=== PATIENT | female | born 1950 | race Caucasian/White ===

== ENCOUNTER 2016-09-09 19:52 | Emergency (ER) | payer OTHER, MEDICARE ==
[~2016-09-09] VITALS: Ht 154.9 cm; Wt 58.2 kg
[~2016-09-09 19:52] MED LIST: ACTUDL10 PO; ESTR1CRE PV; LEVO112T2 PO; OMEP40CA PO; PERP4TAB6 PO; ROSU5TAB PO; RXCS PO; ZFRODT4HP PO; ZTA10 PO
[2016-09-09 19:56] VITALS: TEMP 36.7; Ht 154.9 cm; Wt 58.2 kg
[2016-09-09] MEDS ORDERED: SODIUM CHLORIDE 0.9% 1000ML 1,000 ML IV STA (20:24)
[2016-09-09] MEDS ORDERED: ALUMINUM/MAGNESIUM SUSP 30 ML UDC PO STA (20:24)
[2016-09-09] MEDS ORDERED: PANTOprazole INJ 40 MG in SYRINGE 0 ML IV ONE (20:30)
--- NOTE | 2016-09-09 20:39 | EMERGENCY ROOM VISIT NOTE ---
History Report prepared by Ivan: Michelle Pascual Under the Supervision of: Constantino SextonO. First contact with patient: 20:07 Chief Complaint: ABDOMINAL PAIN Stated Complaint: SEVERE STOMACH PAINS History of Present Illness The patient is a 66 year old female who presents to the Emergency Room with complaints of persistent epigastric abdominal pain that began three hours ago. She currently rates her discomfort as a 10/10 in severity. The patient states that in February of 2014, she had Fundoplication done for her reflux. She states that since then she has had intermittent epigastric pain. The patient states that she has had ultrasounds, endoscopies to explore her pain. She states that she has had this pain in the past, but states that it has never lasted this long or this severe. The patient states that she ate prior to her pain. She states that her pain wraps around to her back. The patient states that the pain suddenly came on. She states that her bowel movements are always abnormal, but denies any melena or hematochezia. The patient reports that she has noticed some slight heart burn. The patient reports a history of celiac disease noting that she is on a gluten free diet. She denies any history of hypertension, kidney disease, or heart disease. The patient reports a history of a cholecystectomy. Source of History: patient Onset: three hours ago Position: abdomen (epigastric) Symptom Intensity: 10/10 Timing: other (persistent) Associated Symptoms: + back pain, No melena, No hematochezia Review of Systems See HPI for pertinent positives & negatives. A total of 10 systems reviewed and were otherwise negative. Past Medical & Surgical Medical Problems: (1) GERD (gastroesophageal reflux disease) Surgical Problems: (1) History of [place] fundoplication Family History Cancer Diabetes mellitus FHx: gallbladder disease Heart disease Social History Smoking Status: Current Every Day Smoker Alcohol Use: none Marital Status: Housing Status: lives with significant other Current/Historical Medications Scheduled Amitriptyline HCl (Amitriptyline HCl), 50 MG PO DAILY Calcium Carbonate-Vitamin D W/ (Caltrate 600 Plus), 1 TAB PO BID Dicyclomine Hcl (Bentyl), 20 MG PO Q8 Ezetimibe (Zetia), 10 MG PO QPM Levothyroxine Sodium (Synthroid), 112 MCG PO 4XWK Levothyroxine Sodium (Levothyroxine Sodium), 150 MG PO MWF Lorazepam (Ativan), 0.5 MG PO PRN Multivitamins/Minerals (Mvi With Minerals), 1 TAB PO DAILY Perphenazine (Trilafon), 4 MG PO QPM Pravastatin Sodium (Pravastatin Sodium), 10 MG PO Q2D [Premarin Cream], 1 DOSE UD Scheduled PRN Zolpidem Tartrate (Ambien), 5 MG PO HS PRN for Sleep Allergies Uncoded Allergies: LATEX (Allergy, Unknown, RASH, 03/25/14) MORPHINE (Allergy, Unknown, HIVES, 03/25/14) Physical Exam Vital Signs Date Time Temp Pulse Resp B/P (MAP) Pulse Ox O2 Delivery O2 Flow Rate FiO2 09/10/16 01:16 67 18 152/79 97 Room Air 09/10/16 01:03 58 09/09/16 23:17 69 16 161/79 97 Room Air 09/09/16 21:43 69 15 147/81 100 Room Air 09/09/16 20:39 79 20 129/75 97 Room Air 09/09/16 20:26 78 09/09/16 19:56 36.7 92 20 147/65 98 Room Air Physical Exam GENERAL: alert, well appearing, well nourished, no distress, non-toxic EYE EXAM: normal conjunctiva, PERRL and EOM's grossly intact OROPHARYNX: no exudate, no erythema, lips, buccal mucosa, and tongue normal and mucous membranes are moist NECK: supple, no nuchal rigidity, no adenopathy, non-tender LUNGS: Clear to auscultation. Normal chest wall mechanics HEART: no murmurs, S1 normal and S2 normal ABDOMEN: Epigastric tenderness to palpation, abdomen soft, normo-active bowel sounds, no masses, no organomegaly, no pulsatile masses, no rebound or guarding. BACK: Back is symmetrical on inspection and there is no deformity, no midline tenderness, no CVA tenderness. SKIN: no rashes and no bruising UPPER EXTREMITIES: upper extremities are grossly normal. LOWER EXTREMITIES: No pitting edema. NEURO EXAM: Normal sensorium, cranial nerves II-XII grossly intact, normal speech, no gross weakness of arms, no gross weakness of legs. Medical Decision & Procedures ER Provider Diagnostic Interpretation: Radiology results have been interpreted by the radiologist and reviewed by me. PA CHEST WITH ABDOMINAL SERIES CLINICAL HISTORY: Epigastric abdominal pain. FINDINGS: A PA chest radiograph is obtained. No prior studies are available for comparison at the time of dictation. The cardiomediastinal silhouette is unremarkable. Nonspecific interstitial thickening is identified. The lungs and pleural spaces are clear. No pneumothorax is seen. The skeletal structures are osteopenic. The bony thorax is grossly intact. A surgical anchor is seen in the right humeral head. Supine and erect abdominal radiographs are correlated with fluoroscopic upper GI series dated 08/19/2015. There is a nonobstructed abdominal bowel gas pattern. There is moderate colonic fecal retention. No evidence of intraperitoneal free air is seen. There are no abnormal abdominal calcifications. Phleboliths are seen in the pelvis. Mild lumbosacral spondylosis is observed. The lumbosacral spine and bony pelvis appear intact. IMPRESSION: 1. No active disease in the chest. 2. Nonobstructed abdominal bowel gas pattern. 3. Moderate constipation. Electronically signed by: Naman Dobbins M.D. 09/09/2016 9:03 PM Dictated Date/Time: 09/09/2016 9:01 PM Laboratory Results 09/09/16 20:10 Red Blood Count 4.28, Mean Corpuscular Volume 90.9, Mean Corpuscular Hemoglobin 30.1, Mean Corpuscular Hemoglobin Concent 33.2, Mean Platelet Volume 8.9, Neutrophils (%) (Auto) 62.9, Lymphocytes (%) (Auto) 25.6, Monocytes (%) (Auto) 9.1, Eosinophils (%) (Auto) 1.9, Basophils (%) (Auto) 0.3, Neutrophils # (Auto) 3.65, Lymphocytes # (Auto) 1.49, Monocytes # (Auto) 0.53, Eosinophils # (Auto) 0.11, Basophils # (Auto) 0.02 09/09/16 20:10 Test 09/09/16 20:10 09/09/16 20:51 09/09/16 23:15 White Blood Count 5.81 K/uL (4.8-10.8) Red Blood Count 4.28 M/uL (4.2-5.4) Hemoglobin 12.9 g/dL (12.0-16.0) Hematocrit 38.9 % (37-47) Mean Corpuscular Volume 90.9 fL (80-100) Mean Corpuscular Hemoglobin 30.1 pg (25-34) Mean Corpuscular Hemoglobin Concent 33.2 g/dl (32-36) Platelet Count 320 K/uL (130-400) Mean Platelet Volume 8.9 fL (7.4-10.4) Neutrophils (%) (Auto) 62.9 % Lymphocytes (%) (Auto) 25.6 % Monocytes (%) (Auto) 9.1 % Eosinophils (%) (Auto) 1.9 % Basophils (%) (Auto) 0.3 % Neutrophils # (Auto) 3.65 K/uL (1.4-6.5) Lymphocytes # (Auto) 1.49 K/uL (1.2-3.4) Monocytes # (Auto) 0.53 K/uL (0.11-0.59) Eosinophils # (Auto) 0.11 K/uL (0-0.5) Basophils # (Auto) 0.02 K/uL (0-0.2) RDW Standard Deviation 44.7 fL (36.4-46.3) RDW Coefficient of Variation 13.5 % (11.5-14.5) Immature Granulocyte % (Auto) 0.2 % Immature Granulocyte # (Auto) 0.01 K/uL (0.00-0.02) Anion Gap 6.0 mmol/L (3-11) Est Creatinine Clear Calc Drug Dose 48.1 ml/min Estimated GFR () 73.7 Estimated GFR (Non- 63.6 BUN/Creatinine Ratio 14.9 (10-20) Calcium Level 9.3 mg/dl (8.5-10.1) Total Bilirubin 0.2 mg/dl (0.2-1) Aspartate Amino Transf (AST/SGOT) 17 U/L (15-37) Alanine Aminotransferase (ALT/SGPT) 34 U/L (12-78) Alkaline Phosphatase 67 U/L (45-117) Total Protein 7.6 gm/dl (6.4-8.2) Albumin 3.9 gm/dl (3.4-5.0) Globulin 3.7 gm/dl (2.5-4.0) Albumin/Globulin Ratio 1.1 (0.9-2) Lipase 63 U/L (73-393) Lactic Acid Level 1.5 mmol/L (0.4-2.0) Troponin I < 0.015 ng/ml (0-0.045) Laboratory results per my review. Medications Administered Medications (Trade) Dose Ordered Sig/Tasneem Route Start Time Stop Time Status Last Admin Dose Admin Pantoprazole Sodium 40 mg/ Syringe 10 ml @ 5 mls/min NOW ONCE IV 09/09/16 20:30 09/09/16 20:31 DC 09/09/16 21:08 5 MLS/MIN Al Hydroxide/Mg Hydroxide (Maalox Susp) 30 ml NOW STAT PO 09/09/16 20:24 09/09/16 20:27 DC 09/09/16 20:37 30 ML Sodium Chloride 1,000 ml @ 999 mls/hr Q1H1M STAT IV 09/09/16 20:24 09/09/16 21:24 DC 09/09/16 20:37 999 MLS/HR Fentanyl Citrate (Fentanyl Inj) 50 mcg NOW STAT IV 09/09/16 21:25 09/09/16 21:27 DC 09/09/16 21:41 50 MCG Dicyclomine HCl (Bentyl Tab) 20 mg NOW STAT PO 09/09/16 22:04 09/09/16 22:05 DC 09/09/16 22:36 20 MG Dicyclomine HCl (Bentyl Cap) 20 mg STK-MED ONCE .ROUTE 09/09/16 22:37 09/09/16 22:38 DC 09/09/16 22:40 20 MG ECG Indication: abdominal pain Rate (beats per minute): 73 Rhythm: sinus rhythm Findings: no acute ischemic change, other (normal axis, normal intervals) ED Course 2018: The patient was evaluated in room C1B. A complete history and physical exam was performed. 2023: Ordered Sodium Chloride 1000 ml @ 999 mls/hr IV, Maalox Susp 30 ml PO. 2029: Ordered Pantoprazole Sodium 40 mg/Syringe 10 ml @ 5 mls/min IV. 2124: Ordered Fentanyl Inj 50 mcg IV. 2156: I reevaluated the patient and she is feeling better. I updated her at this time on her test results. 2203: Ordered Bentyl Tab 20 mg PO. 2236: Ordered Bentyl Cap 20 mg .route. 5: I reevaluated the patient and she is resting comfortably. I discussed the exam findings with her and I discussed the treatment plan. She verbalized complete understanding and agreement. She is ready to go home. Medical Decision Differential diagnoses includes but is not limited to gastritis, peptic ulcer disease, GERD, gallbladder disease, pancreatitis, small bowel obstruction, acute coronary syndrome, pericarditis, ischemic bowel, irritable bowel disease, irritable bowel syndrome, appendicitis, diverticulitis, malignancy, hernia, urinary tract infection, torsion, /ectopic (if female), perforation, trauma, infectious. Blood pressure screening: Patient was found to have a slightly elevated blood pressure due to circumstances. I do not believe that the patient requires hypertension monitoring. Medication Reconciliation: I attest that I have personally reviewed the patient' s current medication list. Pt improved here with meds. Monitored for several hours as a precaution. VS reassuring. Labs reassuring. Pain improved with meds. Doubt atypical cardiac presentation in a woman. Doubt aaa, dissection, tamponade, effusion, pneumothorax, GI bleed, perf, colitis, sbo, no evidence of pancreatitis, doubt bacteremia/sepsis. Similar pain compared to prior however lasting longer. Given extensive work up with similar episodes previously, and reassuring labs, improvement, did not feel warranted emergent Gi intervention or CT at this time. Discussed with pt continued use of antacid meds, f/u with her GI dotor, sx to watch/return for, she verbalized understanding and was agreeable with plan. Pt tolerated po without return of pain prior to DC and ambulated with a steady gait. No orthostatic sx. Impression Primary Impression: Epigastric abdominal pain Scribe Attestation The scribe's documentation has been prepared under my direction and personally reviewed by me in its entirety. I confirm that the note above accurately reflects all work, treatment, procedures, and medical decision making performed by me. Departure Information Dispostion Home / Self-Care Prescriptions Dicyclomine Hcl (BENTYL) 20 Mg Tab 20 MG PO Q8, #20 TAB Prov: Marie Velasco, 09/10/16 Referrals Cris Campos, Forms HOME CARE DOCUMENTATION FORM, IMPORTANT VISIT INFORMATION Patient Instructions My [facility] Additional Instructions Please continue regular medications as prescribed. Please drink clear liquids at frequent intervals to stay well-hydrated, and avoid any foods that may irritate your stomach. If you develop any recurrent or worsening pain, develop vomiting, fevers, noticed black or bloody stools, have increasing abdominal distention, dizziness, back pain, or you have any other new concerns, please return the emergency room.
[2016-09-09 20:45] LABS: BASO % 0.3 %; BASO ABS # 0.02 K/uL (0-0.2); COMPLETE YES; EOS % 1.9 %; HEMATOCRIT 38.9 % (37-47); IG% 0.2 %; LYMPH % 25.6 %; LYMPH ABS # 1.49 K/uL (1.2-3.4); MEAN CELL VOLUME 90.9 fL (80-100); MEAN CORPUSCULAR HEMOGLOBIN 30.1 pg (25-34); MEAN CORPUSCULAR HGB CONC 33.2 g/dl (32-36); MEAN PLATELET VOLUME 8.9 fL (7.4-10.4); MONO % 9.1 %; NEUT % 62.9 %; PLATELET COUNT 320 K/uL (130-400); RED BLOOD COUNT 4.28 M/uL (4.2-5.4); WHITE BLOOD COUNT 5.81 K/uL (4.8-10.8)
[2016-09-09] MEDS ORDERED: LEVO150T9 PO (20:47)
[2016-09-09] MEDS ORDERED: ZOLP5TAB PO (20:47)
[2016-09-09] MEDS ORDERED: LORA-741 PO (20:47)
[2016-09-09] MEDS ORDERED: PRAV10TA39 PO (20:47)
[2016-09-09] MEDS ORDERED: AMT/50 PO (20:47)
[2016-09-09] MEDS ORDERED: MULT-513 PO (20:47)
[2016-09-09] MEDS ORDERED: PERP1TAB5 PO (20:47)
[2016-09-09] MEDS ORDERED: CALCTAB7 PO (20:47)
[2016-09-09] MEDS ORDERED: PREMARIN CREAM (20:49)
--- NOTE | 2016-09-09 21:04 | DIAGNOSTIC IMAGING REPORT ---
PA CHEST WITH ABDOMINAL SERIES CLINICAL HISTORY: Epigastric abdominal pain. FINDINGS: A PA chest radiograph is obtained. No prior studies are available for comparison at the time of dictation. The cardiomediastinal silhouette is unremarkable. Nonspecific interstitial thickening is identified. The lungs and pleural spaces are clear. No pneumothorax is seen. The skeletal structures are osteopenic. The bony thorax is grossly intact. A surgical anchor is seen in the right humeral head. Supine and erect abdominal radiographs are correlated with fluoroscopic upper GI series dated 08/19/2015. There is a nonobstructed abdominal bowel gas pattern. There is moderate colonic fecal retention. No evidence of intraperitoneal free air is seen. There are no abnormal abdominal calcifications. Phleboliths are seen in the pelvis. Mild lumbosacral spondylosis is observed. The lumbosacral spine and bony pelvis appear intact. IMPRESSION: 1. No active disease in the chest. 2. Nonobstructed abdominal bowel gas pattern. 3. Moderate constipation. Electronically signed by: Naman Dobbins M.D. 09/09/2016 9:03 PM Dictated Date/Time: 09/09/2016 9:01 PM
[2016-09-09 21:12] LABS: ALT/SGPT 34 U/L (12-78); BLOOD UREA NITROGEN 14 mg/dl (7-18); BUN/CREATININE RATIO 14.9 (10-20); CALCIUM 9.3 mg/dl (8.5-10.1); CARBON DIOXIDE 28 mmol/L (21-32); CHLORIDE 106 mmol/L (98-107); CREATININE 0.93 mg/dl (0.60-1.20); GLUCOSE 114 mg/dl (70-99); POTASSIUM 3.8 mmol/L (3.5-5.1); SODIUM 140 mmol/L (136-145)
[2016-09-09 21:16] LABS: ALB/GLOB RATIO 1.1 (0.9-2); ALKALINE PHOSPHATASE 67 U/L (45-117); AST/SGOT 17 U/L (15-37)
[2016-09-09] MEDS ORDERED: FENTANYL CITRATE INJ 50 MCG/1 ML 2 ML VIAL IV STA (21:25)
[2016-09-09] MEDS ORDERED: DICYCLOMINE HCL 20 MG TAB PO STA (22:04)
[2016-09-09] MEDS ORDERED: DICYCLOMINE HCL 10 MG CAP ONE (22:37)
[2016-09-10 01:16] VITALS: BP 152/79; PULSE 67; O2SAT 97
[2016-09-10] MEDS ORDERED: DICY20TA35 PO (01:18)
== END 2016-09-10 01:27 | disposition home or self-care (01) ==
LOC: C.EDB 19:52 → C.EDC 09-10 01:27
DX: R10.13 Epigastric pain (principal); K21.9 Gastro-esophageal reflux disease without esophagitis; Z83.3 Family history of diabetes mellitus; Z82.49 Family history of ischemic heart disease and other diseases of the circulatory system; F17.200 Nicotine dependence, unspecified, uncomplicated; K59.00 Constipation, unspecified

== ENCOUNTER → 2016-10-15 | Outpatient (CLI) | payer OTHER, MEDICARE ==
[~2016-10-15] MED LIST changes: -ACTUDL10 PO; +AMT/50 PO; +CALCTAB7 PO; -ESTR1CRE PV; +LEVO150T9 PO; +LORA-741 PO; +MULT-513 PO; -OMEP40CA PO; +PERP1TAB5 PO; -PERP4TAB6 PO; +PRAV10TA39 PO; +PREMARIN CREAM; -ROSU5TAB PO; -RXCS PO; -ZFRODT4HP PO; +ZOLP5TAB PO
--- NOTE | 2016-10-15 08:55 | DIAGNOSTIC IMAGING REPORT ---
GI SERIES W/AIR ROUTINE CLINICAL HISTORY: Epigastric pain. History of [place] fundoplication. Nausea. COMPARISON STUDY: 08/19/2015 FLUOROSCOPY TIME: 2.5 minutes. NUMBER OF FLUOROSCOPIC IMAGES: 30 FINDINGS: The patient swallowed barium without difficulty. No esophageal masses were visualized. No gastric masses were delineated. The gastric antrum was not well-distended. The duodenal bulb appeared normal. The ligament Treitz was located in the normal anatomic position. There is a defect at the esophagogastric junction consistent with a prior [place] fundoplication. IMPRESSION: 1. Postsurgical changes of a prior [place] fundoplication 2. Poorly distensible distal gastric body and antrum. Although no mass is visualized, an infiltrative process cannot be excluded 3. Normal duodenal bulb Electronically signed by: Yevgeniy Stanford M.D. 10/15/2016 8:54 AM Dictated Date/Time: 10/15/2016 8:41 AM
== END | disposition home or self-care (01) ==
LOC: C.RAD 07:31
PROVIDERS: ATTEND Surgery
DX: R10.84 Generalized abdominal pain (principal)

== ENCOUNTER → 2016-11-11 | Outpatient (CLI) | payer OTHER, MEDICARE ==
[2016-11-11 18:09] LABS: THYROID STIMULATING HORMONE 0.685 uIu/ml (0.300-4.500)
== END | disposition home or self-care (01) ==
LOC: C.LABPBG 10:09
PROVIDERS: ATTEND Family Medicine
DX: E03.9 Hypothyroidism, unspecified (principal)

== ENCOUNTER → 2017-05-12 | Outpatient (CLI) | payer OTHER, MEDICARE | END | disposition home or self-care (01) | LOC: C.LABPBG 09:36 | PROVIDERS: ATTEND Family Medicine | DX: Z11.59 Encounter for screening for other viral diseases (principal) ==

== ENCOUNTER → 2017-09-16 | Outpatient (CLI) | payer OTHER, MEDICARE ==
--- NOTE | 2017-09-16 10:55 | DIAGNOSTIC IMAGING REPORT ---
R UPPER EXT JOINT WITHOUT CLINICAL HISTORY: M25.511 Right shoulder painR20.2 Arm paresthesia, [id number] TECHNIQUE: MRI multi axial acquisition COMPARISON STUDY: None FINDINGS: Kidney characteristics the osseous structures are unremarkable. No bone marrow replacing process. Multiple surgical sutures as well as postoperative changes lateral to the humeral head as well as within the region of the acromioclavicular joint. Rotator cuff is grossly intact. There is a mild component of subscapularis tendinopathy. Glenoid labrum is considered intact. No significant joint effusion. No abnormal subdeltoid fluid. IMPRESSION: 1. Postoperative changes as described and lateral to the humeral head. 2. No evidence for rotator cuff tear. 3. Mild component of subscapularis tendinopathy. The above report was generated using voice recognition software. It may contain grammatical, syntax or spelling errors. Electronically signed by: Jose Alberto Berrios M.D. 09/16/2017 10:53 AM Dictated Date/Time: 09/16/2017 10:49 AM
== END | disposition home or self-care (01) ==
LOC: C.MRI 09:28
PROVIDERS: ATTEND Family Medicine
DX: M25.511 Pain in right shoulder (principal); R20.2 Paresthesia of skin

== ENCOUNTER → 2017-10-07 | Outpatient (CLI) | payer OTHER, MEDICARE | END | disposition home or self-care (01) | LOC: C.LABPBG 10:00 | PROVIDERS: ATTEND Family Medicine | DX: E03.9 Hypothyroidism, unspecified (principal); G60.9 Hereditary and idiopathic neuropathy, unspecified ==

== ENCOUNTER 2021-06-09 12:44 | Inpatient (IN) ==
[2021-06-09 13:16] LABS: Basophils # (auto) 0.01 K/uL (0-0.2); Basophils % (auto) 0.1 %; Hematocrit (blood only) 34.4 % (37-47); Hemoglobin 11.8 g/dL (12.0-16.0); Immature Granulocytes # (auto) 0.02 K/uL (0.00-0.02); Immature Granulocytes % (auto) 0.2 %; Lymphocytes # (auto) 0.35 K/uL (1.2-3.4); Lymphocytes % (auto) 2.8 %; Mean Corpuscular Hemoglobin 31.4 pg (25-34); Mean Corpuscular Hgb Conc 34.3 g/dL (32-36); Mean Corpuscular Volume 91.5 fL (80-100); Monocytes # (auto) 0.51 K/uL (0.11-0.59); Monocytes % (auto) 4.1 %; Neutrophils # (auto) 11.67 K/uL (1.4-6.5); Neutrophils % (auto) 92.8 %; Platelet Count 340 K/uL (130-400); RDW Coefficient of Variation 13.5 % (11.5-14.5); Red Blood Count 3.76 M/uL (4.2-5.4); White Blood Count 12.56 K/uL (4.8-10.8)
--- NOTE | 2021-06-09 13:16 | XRay Report ---
XR chest 1V portable HISTORY: 71 years-old Female Chest Pain acute atypical chest pain COMPARISON: Chest radiograph 09/20/2020 TECHNIQUE: Portable AP view of the chest FINDINGS: The cardiomediastinal and hilar silhouettes are within normal limits. There is no pneumothorax, pleur al effusion, airspace consolidation or overt pulmonary edema. Unchanged linear retrocardiac subsegmen cristian scarring. Degenerative changes of the shoulders and spine. Surgical anchor of the right humeral h ead. Acute appearing minimally displaced fracture of the lateral left third rib with questioned acute nondisplaced fracture of the lateral left fifth rib. IMPRESSION: 1. No acute cardiopulmonary abnormality. 2. Acute appearing mildly displaced lateral left third rib fracture with questioned acute nondisplace d fracture of the lateral left fifth rib. 3. No pneumothorax. ACT 112: Negative or not required by law. The above report was generated using voice recognition software. It may contain grammatical, syntax o r spelling errors. Electronically signed by: Jd Lr M.D. 06/09/2021 1:15 PM
--- NOTE | 2021-06-09 13:31 | Emergency Department Note ---
Impression & Plan Acute pancreatitis, Abdominal pain, Anemia, Transaminitis ED Provider Note NAME: MARILU DAVIS AGE: 71 SEX: F : 1950 ARRIVES VIA: Ambulance INFORMANT: Patient ED PROVIDER(S): Russ Mike DO CHIEF COMPLAINT: Shaking status post EGD HPI: Patient is a 71-year-old female who presents the ER from [facility] post EGD. She was given propofol and Versed as well as IV fluids and other medications. Since waking up she has had a persistent tremor as well as stuttering of her speech. She denies any headache or change in vision. No chest pain or shortness of breath. No belly pain nausea vomiting or diarrhea. She has no other complaints at this time. She notes that this is new. She was brought in from [facility] via EMS. ROS: See above HPI for pertinent positives & negatives. A total of 10 systems reviewed and were otherwise negative. PAST MEDICAL HISTORY:See Below PAST SURGICAL HISTORY:See Below FAMILY HISTORY:See Below SOCIAL HISTORY:See Below HOME MEDICATIONS:See Below ALLERGIES:See Below VITALS:See Below PHYSICAL EXAMINATION: GENERAL: Sitting up in bed, Alert, disheveled, no acute distress EYE EXAM: normal conjunctiva. PERRL and EOM's grossly intact. OROPHARYNX: no exudate, no erythema, lips, buccal mucosa, and tongue normal and mucous membranes are moist NECK: supple, no nuchal rigidity, no adenopathy, non-tender LUNGS: Clear to auscultation. Normal chest wall mechanics HEART: no murmurs, S1 normal and S2 normal ABDOMEN: abdomen soft, non-tender, normo-active bowel sounds, no masses, no rebound or guarding. BACK: Back is symmetrical on inspection and there is no deformity, no midline tenderness, no CVA tenderness. SKIN: no rashes and no bruising UPPER EXTREMITIES: upper extremities are grossly normal. LOWER EXTREMITIES: No pitting edema. NEURO EXAM: Normal sensorium, cranial nerves II-XII intact, Intermittent stuttering speech, no weakness of arms, no weakness of legs. Resting tremor in the upper extremities but distractible when talking they resolve or with movement MEDICAL DECISION MAKING: Patient is a 71-year-old female who presents ER for above-stated complaint. Tremors as well as stuttering speech resolved shortly after arrival. IV was established blood work was obtained. Labs show leukocytosis of 12,000. Mild anemia at 12. BMP was unremarkable. LFTs elevated at 100. T bili 8.7. Troponins were negative. Lipase was significantly elevated at 2800. Initially had no belly pain and then was given some the drink and started having severe pain. She was given fluids and Dilaudid. She was updated bedside. Discussed with the hospitalist.CT head was negative. Chest x-ray with questionable rib fractures. Ultrasound gallbladder/pancreas did not show or evaluate for pancreas. KUB was unremarkable.This with Dr. Sutton for further evaluation. Triage Nursing notes reviewed. Limited review of prior medical records performed Vital Signs: reviewed and remarkable for no significant abnormalities Differential diagnosis: Differential diagnoses includes but is not limited to gastritis, peptic ulcer disease, GERD, gallbladder disease, pancreatitis, small bowel obstruction, acute coronary syndrome, pericarditis, ischemic bowel, irritable bowel disease, irritable bowel syndrome, appendicitis, diverticulitis, malignancy, hernia, urinary tract infection, torsion, perforation, trauma, infectious. ER treatment provided: See below Diagnostics interpreted by me: ECG: none Cardiac Monitoring: An order was placed for continuous cardiac monitoring. The monitor shows a rate of 72 with sinus rhythm. Laboratory studies: As stated above and show below. Imaging studies: CT head was negative Ultrasound right upper quadrant was unremarkable KUB was unremarkable Consultation(s): This to the hospitalist for further evaluation Dr. Compa Sutton Procedures: none Critical Care: None Past Med/Surg History Medical History Atrophic vaginitis Mosqueda's esophagus Celiac disease Cervical facet joint syndrome Cervical stenosis of spine Cervicogenic headache Chronic rhinitis Coronary heart disease Coronavirus infection (01/2020) january 2020 Depression Esophageal obstruction GERD (gastroesophageal reflux disease) Hyperlipidemia Hypothyroidism Idiopathic peripheral neuropathy Insomnia Irritable bowel syndrome with constipation Osteoporosis Prediabetes Vitamin D deficiency Surgical History H/O: hysterectomy History of [place] fundoplication S/P appendectomy S/P cataract surgery S/P cholecystectomy S/P eye surgery macular hole repair S/P foot surgery S/P rotator cuff surgery R shoulder x 2, 2006, 2008 Family History Brother Lung cancer Brain tumor Mother Colorectal cancer Liver cancer Sister Diabetes Breast cancer FH: stomach cancer Father Myocardial infarction Brother Bladder cancer Denies family history of Ovarian cancer Prostate cancer Social History Smoking Status: Never smoker Second Hand Exposure: No; Hx Alcohol Use: No Hx Substance Use: No Preferred Language: [place] Visual Impairment: No Limitations Hearing Ability: Normal 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 Beliefs That Will Affect Care: None marital status: Current Living Situation: Spouse current occupational status: retired Feels Safe at Home: Yes Childhood Exposure to Second-Hand Smoke: No caffeine: No during the past year weight has: remained stable Dental Care, Regularly: No Physical Activity Frequency: 5-6 Times per Week Seatbelt Use: always Sunscreen Use: Yes Allergies Allergies Allergy/AdvReac Type Severity Reaction Status Date / Time gluten Allergy Unknown Verified 06/09/21 15:02 latex Allergy Rash Verified 06/09/21 15:02 morphine Allergy RASH, Verified 06/09/21 15:02 FEVER, NAUSEA Home Meds Home Medications Medication Instructions Recorded Confirmed multivitamin (Multiple Vitamins) 1 tab PO QAM 12/21/18 06/09/21 calcium carbonate 600 mg calcium 600 mg PO BID 11/20/20 06/09/21 (1,500 mg) tablet pantoprazole 40 mg tablet,delayed 40 mg PO BID 06/09/21 06/09/21 release Previous Rx's Medication Instructions Recorded levothyroxine 88 mcg tablet 88 mcg PO DAILY #90 tab 11/20/20 zoledronic acid 5 mg/100 mL in See Rx Instructions IV .COMPLEX 11/20/20 mannitol 5 %-water intravenous #100 ml piggybck pravastatin 20 mg tablet 20 mg PO HS #90 tab 02/25/21 famotidine 40 mg tablet (Pepcid) 40 mg PO HS #90 tab 03/02/21 lorazepam 0.5 mg tablet (Ativan) 0.5 mg PO Q8H PRN #30 tab 05/21/21 promethazine 25 mg tablet 25 mg PO TID PRN #20 tab 05/21/21 duloxetine 60 mg capsule,delayed 60 mg PO BID #180 cap 05/22/21 release cyanocobalamin (vitamin B-12) 2,500 mcg PO DAILY #30 tab 05/28/21 2,500 mcg tablet Results & Data (ED) Laboratory Data Result diagrams: 06/09/21 13:00 06/09/21 13:00 Lab Results 06/09/21 06/09/21 06/09/21 Range/Units 13:00 13:00 13:00 WBC 12.56 H (4.8-10.8) K/uL RBC 3.76 L (4.2-5.4) M/uL Hgb 11.8 L (12.0-16.0) g/dL Hct 34.4 L (37-47) % MCV 91.5 (80-100) fL MCH 31.4 (25-34) pg MCHC 34.3 (32-36) g/dL RDW Std Deviation 45.0 (36.4-46.3) fL RDW Coeff of Geri 13.5 (11.5-14.5) % Plt Count 340 (130-400) K/uL MPV 9.0 (7.4-10.4) fL Immature Gran % (Auto) 0.2 % Neut % (Auto) 92.8 % Lymph % (Auto) 2.8 % Crane % (Auto) 4.1 % Eos % (Auto) 0.0 % Baso % (Auto) 0.1 % Neut # (Auto) 11.67 H (1.4-6.5) K/uL Lymph # (Auto) 0.35 L (1.2-3.4) K/uL Crane # (Auto) 0.51 (0.11-0.59) K/uL Eos # (Auto) 0.00 (0-0.5) K/uL Baso # (Auto) 0.01 (0-0.2) K/uL Immature Gran # (Auto) 0.02 (0.00-0.02) K/uL Sodium 137 (136-145) mmol/L Potassium 4.5 (3.5-5.1) mmol/L Chloride 104 (98-107) mmol/L Carbon Dioxide 25 (21-32) mmol/L Anion Gap 8 (3-11) BUN 15 (6-23) mg/dl Creatinine 0.81 (0.6-1.2) mg/dl Est Cr Clr Drug Dosing Not Reportable Est GFR ( Amer) 84.1 ml/min Est GFR (Non-Af Amer) 72.6 ml/min BUN/Creatinine Ratio 18.5 (10-20) Glucose 146 H (70-99(Fasting)) mg/dl Calcium 8.3 L (8.5-10.1) mg/dl Total Bilirubin 0.7 (0.2-1.0) mg/dl AST 160 H (13-39) U/L ALT 79 H (7-52) U/L Alkaline Phosphatase 95 (34-104) U/L Troponin I High Sens 2.9 (0-14) pg/ml Total Protein 6.6 (6.0-8.3) gm/dl Albumin 3.8 (3.4-5.0) gm/dl Globulin 2.8 (2.5-4.0) gm/dl Albumin/Globulin Ratio 1.4 (0.9-2) Lipase 2809 H (11-82) U/L 06/09/21 Range/Units 14:34 WBC (4.8-10.8) K/uL RBC (4.2-5.4) M/uL Hgb (12.0-16.0) g/dL Hct (37-47) % MCV (80-100) fL MCH (25-34) pg MCHC (32-36) g/dL RDW Std Deviation (36.4-46.3) fL RDW Coeff of Geri (11.5-14.5) % Plt Count (130-400) K/uL MPV (7.4-10.4) fL Immature Gran % (Auto) % Neut % (Auto) % Lymph % (Auto) % Crane % (Auto) % Eos % (Auto) % Baso % (Auto) % Neut # (Auto) (1.4-6.5) K/uL Lymph # (Auto) (1.2-3.4) K/uL Crane # (Auto) (0.11-0.59) K/uL Eos # (Auto) (0-0.5) K/uL Baso # (Auto) (0-0.2) K/uL Immature Gran # (Auto) (0.00-0.02) K/uL Sodium (136-145) mmol/L Potassium (3.5-5.1) mmol/L Chloride (98-107) mmol/L Carbon Dioxide (21-32) mmol/L Anion Gap (3-11) BUN (6-23) mg/dl Creatinine (0.6-1.2) mg/dl Est Cr Clr Drug Dosing Est GFR ( Amer) ml/min Est GFR (Non-Af Amer) ml/min BUN/Creatinine Ratio (10-20) Glucose (70-99(Fasting)) mg/dl Calcium (8.5-10.1) mg/dl Total Bilirubin (0.2-1.0) mg/dl AST (13-39) U/L ALT (7-52) U/L Alkaline Phosphatase (34-104) U/L Troponin I High Sens 3.5 (0-14) pg/ml Total Protein (6.0-8.3) gm/dl Albumin (3.4-5.0) gm/dl Globulin (2.5-4.0) gm/dl Albumin/Globulin Ratio (0.9-2) Lipase (11-82) U/L Administered Medications Discontinued Medications Hydromorphone HCl (Hydromorphone Inj 0.5 Mg/0.5 Ml Syr) 0.5 mg IV NOW STA Stop: 06/09/21 14:38 Last Admin: 06/09/21 14:45 Dose: 0.5 mg Documented by: [id number] Sodium Chloride (Nss 1000ml) 1,000 mls @ 999 mls/hr IV .Q1H1M ONE Stop: 06/09/21 15:15 Last Infusion: 06/09/21 15:30 Dose: 0 mls/hr Documented by: [id number] Admin: 06/09/21 14:28 Dose: 999 mls/hr Documented by: [id number] Morphine Sulfate (Morphine Sulfate 4 Mg/Ml 1 Ml Carp\Vial) 4 mg IV NOW STA Stop: 06/09/21 14:16 Last Admin: 06/09/21 14:53 Dose: Not Given Documented by: [id number] Ondansetron HCl (Ondansetron Inj 2 Mg/Ml 2 Ml Vial) 4 mg IV NOW STA Stop: 06/09/21 14:16 Last Admin: 06/09/21 14:28 Dose: 4 mg Documented by: [id number] Imaging Data Radiologist's Impression: Chest X-Ray 06/09/21 12:57 XR chest 1V portable HISTORY: 71 years-old Female Chest Pain acute atypical chest pain COMPARISON: Chest radiograph 09/20/2020 TECHNIQUE: Portable AP view of the chest FINDINGS: The cardiomediastinal and hilar silhouettes are within normal limits. There is no pneumothorax, pleural effusion, airspace consolidation or overt pulmonary edema. Unchanged linear retrocardiac subsegmental scarring. Degenerative changes of the shoulders and spine. Surgical anchor of the right humeral head. Acute appearing minimally displaced fracture of the lateral left third rib with questioned acute nondisplaced fracture of the lateral left fifth rib. IMPRESSION: 1. No acute cardiopulmonary abnormality. 2. Acute appearing mildly displaced lateral left third rib fracture with questioned acute nondisplaced fracture of the lateral left fifth rib. 3. No pneumothorax. ACT 112: Negative or not required by law. The above report was generated using voice recognition software. It may contain grammatical, syntax or spelling errors. Electronically signed by: Jd Lr M.D. 06/09/2021 1:[address] 06/09/21 12:57 CT head/brain wo con CLINICAL HISTORY: stuttering Technique: Contiguous axial CT images of the head were acquired from the base of the skull to the vertex without intravenous contrast administration. Images were viewed in brain, subdural and bone windows. Automated dose lowering techniques and/or adjustment according to patient size were utilized for this exam. Comparison: None available at the time of this dictation. Findings: The ventricles, basal cisterns, and cerebral sulci are normal. There is no acute intracranial hemorrhage or evidence of acute territorial infarction. Neither mass effect, shift of the midline structures, nor abnormal extra-axial fluid collections are shown. Imaged portions of the paranasal sinuses and mastoid air cells are clear. The orbits appear normal. There are no acute fractures of the calvaria or scalp swelling. Impression: No acute intracranial hemorrhage, no evidence of acute territorial infarction or other acute intracranial disease process. ACT 112: Negative or not required by law. Electronically signed by: Yared Hernandez M.D. 06/09/2021 1:32 PM Gallbladder Ultrasound 06/09/21 14:40 ULTRASOUND RIGHT UPPER QUADRANT ABDOMEN CLINICAL HISTORY: Right upper quadrant abdominal pain status post ERCP. COMPARISON STUDY: Abdominal CT dated 09/20/2020 TECHNIQUE: Real-time, grayscale, and color flow sonography of the right upper quadrant of the abdomen was performed. Images are reviewed in the transverse and longitudinal planes. FINDINGS: Liver: The liver is normal in size and echotexture. There is mild intrahepatic biliary ductal dilatation. The main portal vein is patent. Gallbladder: The gallbladder is surgically absent. The common bile duct is dilated, measuring up to 1.5 cm in diameter. Incidental debris/sludge is noted. Pancreas: Visualized portions of the pancreatic head and body are normal in appearance. The splenic vein is patent. Right kidney: Survey images of the right kidney demonstrate normal size and echotexture. There is no hydronephrosis. Ascites: None. IMPRESSION: 1. Status post cholecystectomy. 2. The common bile duct is dilated and contains intraluminal debris/sludge. 3. There is only mild dilatation of the intrahepatic bile ducts. ACT 112: Negative or not required by law. Electronically signed by: Naman Dobbins M.D. 06/09/2021 3:20 PM KUB X-Ray 06/09/21 14:40 XR KUB/Abdomen 1 view CLINICAL HISTORY: abd pain post egd TECHNIQUE: 1 view of the abdomen was obtained. Comparison: Comparison is made to chest radiograph 09/09/2016 FINDINGS: Lung bases are unremarkable. The osseous structures are grossly unremarkable. The bowel gas pattern is nonobstructive. A moderate amount of stool is noted within the large bowel. IMPRESSION: No acute abnormality is seen. Of note, evaluation for pneumoperitoneum is more sensitive in an upright radiograph. ACT 112: Negative or not required by law. Electronically signed by: Yared Hernandez M.D. 06/09/2021 4:06 PM Discharge Plan Visit Data Chief Complaint: Abdominal Pain ED Provider: Russ Mike Discharge Problem: Acute pancreatitis, Abdominal pain, Anemia, Transaminitis Forms Stand Alone Forms: My [facility] [employer] Prescriptions Prescriptions: No Action zoledronic [id number] 5 mg/100 mL piggyback See Rx Instructions mg IV .COMPLEX Qty: 100 RF: 0 pravastatin 20 mg tablet 20 mg PO HS Qty: 90 RF: 3 famotidine [Pepcid] 40 mg tablet 40 mg PO HS Qty: 90 RF: 1 cyanocobalamin (vitamin B-12) 2,500 mcg tablet 2,500 mcg PO DAILY Qty: 30 RF: 8 levothyroxine 88 mcg tablet 88 mcg PO DAILY Qty: 90 RF: 3 calcium carbonate 600 mg calcium (1,500 mg) tablet 600 mg PO BID RF: 0 multivitamin [Multiple Vitamins] tablet 1 tab PO QAM RF: 0 duloxetine 60 mg capsule,delayed release(DR/EC) 60 mg PO BID Qty: 180 RF: 2 promethazine 25 mg tablet 25 mg PO TID PRN (Reason: nausea and vomiting) Qty: 20 RF: 0 lorazepam [Ativan] 0.5 mg tablet 0.5 mg PO Q8H PRN (Reason: anxiety) Qty: 30 RF: 0 pantoprazole 40 mg tablet,delayed release (DR/EC) 40 mg PO BID RF: 0 Referrals Referrals: Cris Campos DO [Primary Care Provider] - Discharge Problem: Acute pancreatitis Qualifiers: Pancreatitis type: unspecified pancreatitis type Acute pancreatitis complication: unspecified Qualified Code(s): K85.90 - Acute pancreatitis without necrosis or infection, unspecified Abdominal pain Qualifiers: Abdominal location: unspecified location Qualified Code(s): R10.9 - Unspecified abdominal pain Anemia Qualifiers: Anemia type: unspecified type Qualified Code(s): D64.9 - Anemia, unspecified
--- NOTE | 2021-06-09 13:34 | CT Scan Report ---
CT head/brain wo con CLINICAL HISTORY: stuttering Technique: Contiguous axial CT images of the head were acquired from the base of the skull to the biju dat without intravenous contrast administration. Images were viewed in brain, subdural and bone [facility]. Automated dose lowering techniques and/or adjustment according to patient size were utilized for this exam. Comparison: None available at the time of this dictation. Findings: The ventricles, basal cisterns, and cerebral sulci are normal. There is no acute intracranial hemorrh age or evidence of acute territorial infarction. Neither mass effect, shift of the midline structures , nor abnormal extra-axial fluid collections are shown. Imaged portions of the paranasal sinuses and mastoid air cells are clear. The orbits appear normal. There are no acute fractures of the calvaria or scalp swelling. Impression: No acute intracranial hemorrhage, no evidence of acute territorial infarction or other acute intracra nial disease process. ACT 112: Negative or not required by law. Electronically signed by: Yared Hernandez M.D. 06/09/2021 1:32 PM
[2021-06-09 13:48] LABS: Anion Gap 8 (3-11); BUN Creatinine Ratio 18.5 (10-20); Blood Urea Nitrogen 15 mg/dl (6-23); Calcium 8.3 mg/dl (8.5-10.1); Carbon Dioxide 25 mmol/L (21-32); Chloride 104 mmol/L (98-107); Est GFR (African American) 84.1 ml/min; Est GFR (Non-African American) 72.6 ml/min; Glucose 146 mg/dl (70-99(Fasting)); Potassium 4.5 mmol/L (3.5-5.1); Sodium 137 mmol/L (136-145)
[2021-06-09 13:54] LABS: Alanine Aminotransferase 79 U/L (7-52); Albumin Globulin Ratio 1.4 (0.9-2); Albumin Level 3.8 gm/dl (3.4-5.0); Alkaline Phosphatase 95 U/L (34-104); Aspartate Aminotransferase 160 U/L (13-39); Bilirubin,Total 0.7 mg/dl (0.2-1.0); Globulin 2.8 gm/dl (2.5-4.0); Total Protein 6.6 gm/dl (6.0-8.3)
[2021-06-09 14:13] LABS: Lipase 2809 U/L (11-82)
[2021-06-09] MEDS ORDERED: ONDANSETRON INJ 2 MG/ML 2 ML VIAL IV STA (14:15)
[2021-06-09] MEDS ORDERED: SODIUM CHLORIDE 0.9% 1000ML 1,000 ML IV ONE (14:15)
[2021-06-09] MEDS ORDERED: MoRPHine SULFATE 4 MG/ML 1 ML CARP\\VIAL IV STA (14:15)
[2021-06-09] MEDS ORDERED: KETOROLAC TROMETHAMINE 15 MG/ML VIAL IV ONE (14:37)
[2021-06-09] MEDS ORDERED: HYDROmorphone INJ 0.5 MG/0.5 ML SYR IV STA (14:37)
--- NOTE | 2021-06-09 15:12 | History & Physical Report ---
Date of Service June 09, 2021 Assessment & Plan (1) Post-ERCP acute pancreatitis: Plan: -Lipase 2809, abdominal pain characteristic of pancreatitis. On GB of U/S, visualized portions of the pancreatic head and body are normal in appearance. The splenic vein is patent. No history of alcohol use/dependence, no previous admissions for pancreatitis, lipids checked in September 2020 were not grossly elevated, no hypercalcemia on labs today, given she is s/p ERCP this is the most likely etiology. -Toradol and Dilaudid for pain, patient is allergic to morphine. -LRs at 200 cc/hr, npo for now. -IV zofran, phenergan, IV protonix. (2) Rib fracture: Plan: -Had a fall on 05/25 after tripping in her bathroom and had L sided rib pain, was seen on an urgent care, recommended to use Tylenol, ibuprofen, ice for pain. -CXR today showed acute appearing mildly displaced lateral left third rib fracture with questioned acute nondisplaced fracture of the lateral left fifth rib. -Will order lidocaine patch prn for these. (3) Constipation: Plan: KUB showed moderate stool burden, given she is to be on Dilaudid for pain related to pancreatitis, will schedule daily Miralax. (4) Celiac disease: Plan: -Will need gluten-free diet when tolerating PO intake. -Has chronic nausea, have ordered IV antiemetics prn. (5) Hyperlipidemia: Plan: -Hold pravastatin while n.p.o., can resume tomorrow when tolerating p.o. intake. (6) Hypothyroidism: Plan: -Hold levothyroxine while n.p.o., can resume tomorrow when tolerating p.o. intake. (7) Idiopathic peripheral neuropathy: Plan: -Hold duloxetine while n.p.o., can resume tomorrow when tolerating p.o. intake. -Seen by neurology on 05/22, to have EMG/NCV of B/L LE with Dr. Zuniga in June. (8) Insomnia: Plan: -Largely due to chronic pain that keeps her up, specifically her polyneuropathy and nausea, had previously been taking Ambien, her PCP changed this to Ativan 3 weeks ago, however patient prefers Ambien. -Will order melatonin, Ambien as needed if a combination of melatonin and IV pain medications is not enough to allow patient to get adequate rest. (9) Osteoporosis: Plan: -Follows with rheumatology, receives Reclast injections (10) Prediabetes: Plan: -Management with a gluten-free diet, most recent A1c 6.0. -Fasting glucose on labs today 146, will order BSG ACHS with SSI prn. (11) GERD (gastroesophageal reflux disease): Plan: -With Mosqueda's esophagus. -On pantoprazole 40 mg twice daily at home, will convert to IV while NPO. Can resume p.o. when tolerating diet. (12) Cervical stenosis of spine: Plan: -Previoiusly had PT for this, seen by pain mgmt, scheduled for neck injections June. (13) Depression: Plan: -Hold duloxetine while n.p.o., can resume tomorrow when tolerating p.o. intake. (14) Abnormal LFTs: Plan: -Admit to med/surg -SCDs, Lovenox for DVT ppx. -Full code. History of Present Illness Chief Complaint: abdominal pain s/p CBD stone removal Primary Care Provider: Cris Campos DO Patient is a 71 y/o female with a PMH of GERD, Mosqueda's esophagus, celiac disease, IBS, hypothyroidism, hyperlipidemia, peripheral neuropathy, C-spine stenosis, fall on 05/25 resulting in L sided rib fractures, and insomnia who presents today after CBD stone removal at [facility] with abdominal pain. Patient initially was transferred here via EMS after she was found to be stuttering and with a new tremor after awakening from her procedure. This resolved around 2 PMin our ED without any intervention and patient returned to baseline, was given some apple juice and going to be discharged when she developed stabbing abdominal pain on her right side. It does not radiate but was 10/10 before being given pain medication. She does have chronic nausea and abdominal pain due to Celiac dz/GERD/CBD stones however today's pain was worse and in a different location. She is nauseous today but without emesis, no bowel changes, no hematochezia or melena, no recent fever/chills, denies chest pain, palpitations, shortness of breath. Labs significant for WBC 12.56, glucose 146, AST 160, ALT 79, lipase 2809. GB U/S revealed common bile duct is dilated and contains intraluminal debris/sludge, only mild dilatation of the intrahepatic bile ducts. KUB unrem arkable. Head CT showed no acute intracranial hemorrhage, evidence of acute territorial infarction, or other acute intracranial disease. CXR showed acute appearing mildly displaced lateral left third rib fracture with questioned acute nondisplaced fracture of the lateral left fifth rib, otherwise no acute cardiopulmonary abnormality or pneumothorax. Allergies Allergy/AdvReac Type Severity Reaction Status Date / Time gluten Allergy Unknown Verified 06/09/21 15:02 latex Allergy Rash Verified 06/09/21 15:02 morphine Allergy RASH, Verified 06/09/21 15:02 FEVER, NAUSEA Home Medications Medication Instructions Recorded Confirmed Type multivitamin (Multiple Vitamins) 1 tab PO QAM 12/21/18 06/09/21 History calcium carbonate 600 mg calcium 600 mg PO BID 11/20/20 06/09/21 History (1,500 mg) tablet levothyroxine 88 mcg tablet 88 mcg PO DAILY #90 tab 11/20/20 06/09/21 Rx zoledronic acid 5 mg/100 mL in See Rx Instructions IV .COMPLEX 11/20/20 06/09/21 Rx mannitol 5 %-water intravenous #100 ml piggybck pravastatin 20 mg tablet 20 mg PO HS #90 tab 02/25/21 06/09/21 Rx famotidine 40 mg tablet (Pepcid) 40 mg PO HS #90 tab 03/02/21 06/09/21 Rx lorazepam 0.5 mg tablet (Ativan) 0.5 mg PO Q8H PRN #30 tab 05/21/21 06/09/21 Rx promethazine 25 mg tablet 25 mg PO TID PRN #20 tab 05/21/21 06/09/21 Rx duloxetine 60 mg capsule,delayed 60 mg PO BID #180 cap 05/22/21 06/09/21 Rx release cyanocobalamin (vitamin B-12) 2,500 mcg PO DAILY #30 tab 05/28/21 06/09/21 Rx 2,500 mcg tablet pantoprazole 40 mg tablet,delayed 40 mg PO BID 06/09/21 06/09/21 History release Past Med/Surg History Medical History Atrophic vaginitis Mosqueda's esophagus Celiac disease Cervical facet joint syndrome Cervical stenosis of spine Cervicogenic headache Chronic rhinitis Coronary heart disease Coronavirus infection (01/2020) january 2020 Depression Esophageal obstruction GERD (gastroesophageal reflux disease) Hyperlipidemia Hypothyroidism Idiopathic peripheral neuropathy Insomnia Irritable bowel syndrome with constipation Osteoporosis Prediabetes Vitamin D deficiency Surgical History H/O: hysterectomy History of [place] fundoplication S/P appendectomy S/P cataract surgery S/P cholecystectomy S/P eye surgery macular hole repair S/P foot surgery S/P rotator cuff surgery R shoulder x 2, 2006, 2008 Family History Brother Lung cancer Brain tumor Mother Colorectal cancer Liver cancer Sister Diabetes Breast cancer FH: stomach cancer Father Myocardial infarction Brother Bladder cancer Denies family history of Ovarian cancer Prostate cancer Social History Smoking Status: Never smoker Second Hand Exposure: No; Do You Dip or Chew Tobacco: No; Tobacco Cessation Education Requested by Patient: No Hx Alcohol Use: No Hx Substance Use: No Preferred Language: Estonian Communication Ability: Effective Visual Impairment: No Limitations Hearing Ability: Normal Portable Trackman Required: No Beliefs That Will Affect Care: None marital status: Current Living Situation: Spouse current occupational status: retired Other Information That Helps Us Care for You: No Feels Safe at Home: Yes Safety Concerns: Feels Safe At This Time Childhood Exposure to Second-Hand Smoke: No caffeine: No during the past year weight has: remained stable Dental Care, Regularly: No Physical Activity Frequency: 5-6 Times per Week Seatbelt Use: always Sunscreen Use: Yes Assistive Devices: None Review of Systems Review of Systems: Constitutional: No fever/chills, weakness, fatigue, myalgias, anorexia, night sweats Eyes: No diplopia, no worsening or blurred vision ENT: normal hearing, no trouble swallowing Respiratory: No cough, sputum, dyspnea at rest or on exertion Cardiovascular: No chest pain, tightness or palpitations Abdomen: sharp, stabbing right sided abdominal pain without radiation and nausea, without vomiting, diarrhea, constipation, melena, hematochezia : Denies dysuria, hematuria, increased urgency/frequency, urinary retention Musculoskeletal: No joint pain, calf pain, swelling Neurologic: No weakness, no change to chronic b/l LE numbness/tingling, no balance problems Psychiatric: No anxiety or depression Skin: No rash or itch Physical Exam Physical Exam: General: awake, alert, no apparent distress Head: Normocephalic, atraumatic ENT: PERRL, EOMI, no pharyngeal exudate, mucous membranes moist Chest: Clear to auscultation, on room air, no adventitious breath sounds Cardiac: Regular rate and rhythm, no murmur, no JVD, normal peripheral pulses, good capillary refill Abdominal: NABS x 4 quadrants, soft, nontender to palpation, no rebound, guarding or tenderness Extremities: Normal inspection, no peripheral edema or erythema, calfs nontender to palpation Psych: Normal mood and affect Neuro: AAO x 3, strength intact bilaterally and rated 5/5, no motor deficits, speech is clear, no peripheral sensory deficits Skin: no rash or erythema Results & Data Results & Data ([facility]) Laboratory Results Abnormal lab results 06/09/21 06/09/21 Range/Units 13:00 13:00 WBC 12.56 H (4.8-10.8) K/uL RBC 3.76 L (4.2-5.4) M/uL Hgb 11.8 L (12.0-16.0) g/dL Hct 34.4 L (37-47) % Neut # (Auto) 11.67 H (1.4-6.5) K/uL Lymph # (Auto) 0.35 L (1.2-3.4) K/uL Glucose 146 H (70-99(Fasting)) mg/dl Calcium 8.3 L (8.5-10.1) mg/dl AST 160 H (13-39) U/L ALT 79 H (7-52) U/L Lipase 2809 H (11-82) U/L Diagnostic Findings Chest X-Ray 06/09/21 12:57 XR chest 1V portable HISTORY: 71 years-old Female Chest Pain acute atypical chest pain COMPARISON: Chest radiograph 09/20/2020 TECHNIQUE: Portable AP view of the chest FINDINGS: The cardiomediastinal and hilar silhouettes are within normal limits. There is no pneumothorax, pleural effusion, airspace consolidation or overt pulmonary edema. Unchanged linear retrocardiac subsegmental scarring. Degenerative changes of the shoulders and spine. Surgical anchor of the right humeral head. Acute appearing minimally displaced fracture of the lateral left third rib with questioned acute nondisplaced fracture of the lateral left fifth rib. IMPRESSION: 1. No acute cardiopulmonary abnormality. 2. Acute appearing mildly displaced lateral left third rib fracture with questioned acute nondisplaced fracture of the lateral left fifth rib. 3. No pneumothorax. ACT 112: Negative or not required by law. The above report was generated using voice recognition software. It may contain grammatical, syntax or spelling errors. Electronically signed by: Jd Lr M.D. 06/09/2021 1:[address] 06/09/21 12:57 CT head/brain wo con CLINICAL HISTORY: stuttering Technique: Contiguous axial CT images of the head were acquired from the base of the skull to the vertex without intravenous contrast administration. Images were viewed in brain, subdural and bone windows. Automated dose lowering techniques and/or adjustment according to patient size were utilized for this exam. Comparison: None available at the time of this dictation. Findings: The ventricles, basal cisterns, and cerebral sulci are normal. There is no acute intracranial hemorrhage or evidence of acute territorial infarction. Neither mass effect, shift of the midline structures, nor abnormal extra-axial fluid collections are shown. Imaged portions of the paranasal sinuses and mastoid air cells are clear. The orbits appear normal. There are no acute fractures of the calvaria or scalp swelling. Impression: No acute intracranial hemorrhage, no evidence of acute territorial infarction or other acute intracranial disease process. ACT 112: Negative or not required by law. Electronically signed by: Yared Hernandez M.D. 06/09/2021 1:32 PM Gallbladder Ultrasound 06/09/21 14:40 ULTRASOUND RIGHT UPPER QUADRANT ABDOMEN CLINICAL HISTORY: Right upper quadrant abdominal pain status post ERCP. COMPARISON STUDY: Abdominal CT dated 09/20/2020 TECHNIQUE: Real-time, grayscale, and color flow sonography of the right upper quadrant of the abdomen was performed. Images are reviewed in the transverse and longitudinal planes. FINDINGS: Liver: The liver is normal in size and echotexture. There is mild intrahepatic biliary ductal dilatation. The main portal vein is patent. Gallbladder: The gallbladder is surgically absent. The common bile duct is dilated, measuring up to 1.5 cm in diameter. Incidental debris/sludge is noted. Pancreas: Visualized portions of the pancreatic head and body are normal in appearance. The splenic vein is patent. Right kidney: Survey images of the right kidney demonstrate normal size and echotexture. There is no hydronephrosis. Ascites: None. IMPRESSION: 1. Status post cholecystectomy. 2. The common bile duct is dilated and contains intraluminal debris/sludge. 3. There is only mild dilatation of the intrahepatic bile ducts. ACT 112: Negative or not required by law. Electronically signed by: Naman Dobbins M.D. 06/09/2021 3:20 PM KUB X-Ray 06/09/21 14:40 XR KUB/Abdomen 1 view CLINICAL HISTORY: abd pain post egd TECHNIQUE: 1 view of the abdomen was obtained. Comparison: Comparison is made to chest radiograph 09/09/2016 FINDINGS: Lung bases are unremarkable. The osseous structures are grossly unremarkable. The bowel gas pattern is nonobstructive. A moderate amount of stool is noted within the large bowel. IMPRESSION: No acute abnormality is seen. Of note, evaluation for pneumoperitoneum is more sensitive in an upright radiograph. ACT 112: Negative or not required by law. Electronically signed by: Yared Hernandez M.D. 06/09/2021 4:06 PM ECG Additional Comments: Read as normal sinus rhythm, Possible Left atrial enlargement Low voltage QRS Septal infarct , age undetermined Abnormal ECG When compared with ECG of 20-SEP-2020 20:32, Septal infarct is now Present Per my review, I see no ST segment elevation or T wave inversions. Code Status & VTE Plan Code Status Full Code. Supervising Physician Co-Signing Physician Notes Attending Attestation & Admission Note: Pt seen/examined, chart reviewed, care plan d/w EMELIA Jones. I agree w/ the tracy components of her documentation. Pleasant 71yo female with known celiac disease, chronic nausea, chronic headaches, and CBD stones seen on EUS earlier this winter who underwent ERCP by Dr Isra Woodson at [facility] earlier today. By report the duct was cleaned out and stones/sludge were removed. To my knowledge a stent was not placed. In the PACU at [facility] she awoke with stuttering & tremor then subsequently developed right-sided abdominal pain. It was advised she go to [facility] ER. Upon arrival her speech was clear/fluent and tremors had resolved but her abd pain had persisted. Labs showed lipase of 2800 and AST/ALT were mildly elevated. PMH/PSH/allergies/meds/sochx/famhx - reviewed VSS, afebrile gen - comfortable (had recently received IV narcotics), a/o x 3 eyes - no icterus mouth - MMM heart - RRR, s1 s2 lungs - CTA b/l abd - soft, mildly tender RUQ, BS+, no peritoneal signs ext - no edema neuro - no tremor, speech wnl labs reviewed - ast/alt/lipase elevated; WBC 12 RUQ us - CBD 1.5cm; CBD sludge; intrahepatic biliary ductal dilatation other imaging reviewed A/P: 1. post-ERCP pancreatitis 2. transaminitis 3. CBD stones/sludge s/p outpatient ERCP today by Dr Isra Woodson copious IV fluids (LR) at 200cc/hr NPO except ice chips pain meds repeat LFTs/lipase am no evidence thus far of cholangitis given #3, if clinical picture worsens, will consult [facility] given the RUQ us findings in the ER of note - KUB with copious constipation - will address with her later in her stay Davie Sutton MD PG Care Time/CCT Total # of Minutes Spent Total Time Spent with Patient: Total time spent is greater than 50% in coordination of care (as documented) at patient's floor/unit and/or counseling patient: Coding Level of Care Code 79036 Initial Inpt Care Lvl 3 Diagnoses Post-ERCP acute pancreatitis K91.89; K85.90 Celiac disease K90.0 Hyperlipidemia E78.5 Hypothyroidism E03.9 Idiopathic peripheral neuropathy G60.9 Insomnia G47.00 Osteoporosis M81.0 Prediabetes R73.03 GERD (gastroesophageal reflux disease) K21.9 Cervical stenosis of spine M48.02 Depression F32.A Constipation K59.00 Rib fracture S22.39XA Abnormal LFTs R79.89
--- NOTE | 2021-06-09 15:22 | Ultrasound Report ---
ULTRASOUND RIGHT UPPER QUADRANT ABDOMEN CLINICAL HISTORY: Right upper quadrant abdominal pain status post ERCP. COMPARISON STUDY: Abdominal CT dated 09/20/2020 TECHNIQUE: Real-time, grayscale, and color flow sonography of the right upper quadrant of the abdomen was performed. Images are reviewed in the transverse and longitudinal planes. FINDINGS: Liver: The liver is normal in size and echotexture. There is mild intrahepatic biliary ductal dilatat ion. The main portal vein is patent. Gallbladder: The gallbladder is surgically absent. The common bile duct is dilated, measuring up to 1 .5 cm in diameter. Incidental debris/sludge is noted. Pancreas: Visualized portions of the pancreatic head and body are normal in appearance. The splenic v ein is patent. Right kidney: Survey images of the right kidney demonstrate normal size and echotexture. There is no hydronephrosis. Ascites: None. IMPRESSION: 1. Status post cholecystectomy. 2. The common bile duct is dilated and contains intraluminal debris/sludge. 3. There is only mild dilatation of the intrahepatic bile ducts. ACT 112: Negative or not required by law. Electronically signed by: Naman Dobbins M.D. 06/09/2021 3:20 PM
--- NOTE | 2021-06-09 16:07 | XRay Report ---
XR KUB/Abdomen 1 view CLINICAL HISTORY: abd pain post egd TECHNIQUE: 1 view of the abdomen was obtained. Comparison: Comparison is made to chest radiograph 09/09/2016 FINDINGS: Lung bases are unremarkable. The osseous structures are grossly unremarkable. The bowel gas pattern i s nonobstructive. A moderate amount of stool is noted within the large bowel. IMPRESSION: No acute abnormality is seen. Of note, evaluation for pneumoperitoneum is more sensitive in an uprigh t radiograph. ACT 112: Negative or not required by law. Electronically signed by: Yared Hernandez M.D. 06/09/2021 4:06 PM
[2021-06-09] MEDS ORDERED: KETOROLAC TROMETHAMINE 15 MG/ML VIAL IV PRN (19:47)
[2021-06-09] MEDS ORDERED: PROMETHAZINE HCL 12.5 MG in SODIUM CHLORIDE 0.9% 50 ML IV PRN (19:47)
[2021-06-09] MEDS ORDERED: ACETAMINOPHEN 325 MG TAB PO PRN (19:47)
[2021-06-09] MEDS ORDERED: ZOLPIDEM TARTRATE 5 MG TAB PO PRN (19:47)
[2021-06-09] MEDS ORDERED: MELATONIN 3 MG TAB PO PRN (19:47)
[2021-06-09] MEDS ORDERED: PATIENT'S HEIGHT AND/OR WEIGHT NEEDED SCH (20:15)
[2021-06-09] MEDS: LACTATED RINGER'S 1,000 ML IV SCH (20:21)
[2021-06-09] MEDS ORDERED: ENOXAPARIN INJ 40 MG/0.4 ML SYR SQ SCH (21:00)
[2021-06-09] MEDS: PANTOprazole 40 MG in SYRINGE 0 ML IV SCH (22:03)
[2021-06-10] MEDS: ONDANSETRON INJ 2 MG/ML 2 ML VIAL IV PRN ×2 (00:17→06:12)
[2021-06-10] MEDS: HYDROmorphone INJ 0.5 MG/0.5 ML SYR IV PRN ×2 (00:18→06:13)
[2021-06-10] MEDS: LACTATED RINGER'S 1,000 ML IV SCH ×5 (01:20→22:36)
--- NOTE | 2021-06-10 06:01 | Electrocardiogram Report ---
Test Reason : Blood Pressure : / mmHG Vent. Rate : 078 BPM Atrial Rate : 078 BPM P-R Int : 178 ms QRS Dur : 072 ms QT Int : 430 ms P-R-T Axes : 075 031 067 degrees QTc Int : 490 ms Poor data quality, interpretation may be adversely affected Normal sinus rhythm Possible Left atrial enlargement Low voltage QRS Prolonged QT Abnormal ECG When compared with ECG of 20-SEP-2020 20:32, QT has lengthened Confirmed by Memo Gonsalez ([id number]) on 06/10/2021 6:01:02 AM Referred By: REFERRED SELF Confirmed By:Memo Gonsalez
[2021-06-10 06:28] LABS: Basophils # (auto) 0.02 K/uL (0-0.2); Basophils % (auto) 0.2 %; Eosinophils # (auto) 0.03 K/uL (0-0.5); Eosinophils % (auto) 0.3 %; Hematocrit (blood only) 33.6 % (37-47); Hemoglobin 11.2 g/dL (12.0-16.0); Immature Granulocytes # (auto) 0.01 K/uL (0.00-0.02); Immature Granulocytes % (auto) 0.1 %; Lymphocytes # (auto) 1.59 K/uL (1.2-3.4); Lymphocytes % (auto) 18.2 %; Mean Corpuscular Hemoglobin 30.8 pg (25-34); Mean Corpuscular Hgb Conc 33.3 g/dL (32-36); Mean Corpuscular Volume 92.3 fL (80-100); Mean Platelet Volume 9.2 fL (7.4-10.4); Monocytes # (auto) 0.81 K/uL (0.11-0.59); Monocytes % (auto) 9.3 %; Neutrophils # (auto) 6.28 K/uL (1.4-6.5); Neutrophils % (auto) 71.9 %; Platelet Count 347 K/uL (130-400); RDW Coefficient of Variation 13.5 % (11.5-14.5); RDW Standard Deviation 46.1 fL (36.4-46.3); Red Blood Count 3.64 M/uL (4.2-5.4); White Blood Count 8.74 K/uL (4.8-10.8)
[2021-06-10 07:06] LABS: BUN Creatinine Ratio 14.5 (10-20); Calcium 8.4 mg/dl (8.5-10.1); Creatinine Clr Calc Pharmacy 52.9 ml/min; Est GFR (African American) 90.8 ml/min; Est GFR (Non-African American) 78.4 ml/min; Potassium 4.1 mmol/L (3.5-5.1)
[2021-06-10 07:09] LABS: Albumin Globulin Ratio 1.4 (0.9-2); Albumin Level 3.5 gm/dl (3.4-5.0); Bilirubin,Total 0.6 mg/dl (0.2-1.0); Globulin 2.5 gm/dl (2.5-4.0)
[2021-06-10] MEDS ORDERED: PIPERACILL/TAZOBAC CONSULT ACTIVE PRN (08:44)
[2021-06-10] MEDS ORDERED: LIDOCAINE 5% 1 PATCH TD PRN (09:00)
[2021-06-10] MEDS ORDERED: PIPERACILLIN/TAZOBACTAM 3.375 GM in DEXTROSE 5% 100 ML IV ONE (10:00)
[2021-06-10] MEDS: PANTOprazole 40 MG in SYRINGE 0 ML IV SCH ×2 (10:45→21:00)
[2021-06-10] MEDS: POLYETHYLENE (MIRALAX) 17 GM PACK PO SCH ×2 (10:45→12:52)
[2021-06-10] MEDS ORDERED: LORazepam 0.5 MG TAB PO STA (11:15)
--- NOTE | 2021-06-10 11:16 | Hospitalist Progress Note ---
Date of Service June 10, 2021 Assessment & Plan (1) Post-ERCP acute pancreatitis: Plan: Post-procedural acute pancreatitis (complication of ERCP). Clinically stable/unchanged in comparison to admission. Lipase this am noted. Continue copious LR hydration (at least 200cc/hr until tonight, then could consider 150cc/hr). Continue pain control. Diet - defer to GI. Repeat LFTs/lipase in am. (2) Abnormal LFTs: Plan: AST, ALT both jomar overnight, and alk phos now mildly high. I consulted [facility] in response to these labs and her clinical picture. MRCP recommended by GI. This appeared to show biliary ductal defects. MRCP was then followed by ERCP today. Performed by Dr Woodson. CBD showed small blood clots but no gallstones, sludge or cholangitis. CBD swept, metal stent placed. Appreciate GI assistance. Repeat LFTs am. (3) Rib fracture: Plan: 2nd to fall on 05/25. mildly displaced lateral left third rib fracture. suspected acute nondisplaced fracture of the lateral left fifth rib. schedule lidoderm patches. pain meds for #1 will help this as well. (4) Constipation: Plan: KUB with moderate stool burden. Bowel regimen. (5) Celiac disease: Plan: GF-diet once able to take PO. (6) Hyperlipidemia: Plan: Hold statin in light of #2. (7) Hypothyroidism: Plan: Resume levothyroxine 88mcg daily. (8) Idiopathic peripheral neuropathy: Plan: resume cymbalta. med rec shows 60mg BID as her dosing regimen. Seen by neurology on 05/22, to have EMG/NCV of B/L LE with Dr. Zuniga in June this spring. (9) Insomnia: Plan: Cont melatonin Cont ambien She would benefit from a different sleep aid - trazodone, doxepin, etc are possibilities will d/w patient (10) Osteoporosis: (11) Prediabetes: Plan: most recent A1c 6.0. trend BSGs while here (12) GERD (gastroesophageal reflux disease): Plan: cont PPI twice daily (13) Cervical stenosis of spine: Plan: scheduled for epidural steroid injections in June. (14) Depression: Plan: resume cymbalta per home dosing Plan: care d/w [facility] Admission and Anticipated Discharge Date Admission Date: June 09, 2021 Subjective patient slept poorly most of the night some of this is chronic, but acutely her abd pain interfered with her sleep pain is RUQ in location no vomiting some nausea but improved from yesterday no fevers she expresses frustration over her chronic peripheral neuropathy, chronic insomnia, chronic headaches (has seen neurology for the headaches) Review of Systems Review of Systems: gen - no chills CV - no chest pain pulm - no dyspnea Physical Exam Physical Exam: gen - NAD, frustrated with her chronic medical issues eyes - no icterus mouth - MMM heart - RRR, s1 s2 lungs - CTA b/l abd - soft, mildly tender RUQ, BS+, no HSM ext - no edema, pulses 2+ b/l psych - anxious Results & Data Results & Data ([facility]) Vital Signs (Past 12 Hours) Vital Signs Temp Pulse Resp BP Pulse Ox 06/10/21 07:00 37 C 92 H 18 101/52 L 92 Laboratory Results Laboratory Results - last 24 hr 06/09/21 06/09/21 06/10/21 16:00 20:34 05:57 WBC 8.74 RBC 3.64 L Hgb 11.2 L Hct 33.6 L MCV 92.3 MCH 30.8 MCHC 33.3 RDW Std Deviation 46.1 RDW Coeff of Geri 13.5 Plt Count 347 MPV 9.2 Immature Gran % (Auto) 0.1 Neut % (Auto) 71.9 Lymph % (Auto) 18.2 Rice % (Auto) 9.3 Eos % (Auto) 0.3 Baso % (Auto) 0.2 Neut # (Auto) 6.28 Lymph # (Auto) 1.59 Rice # (Auto) 0.81 H Eos # (Auto) 0.03 Baso # (Auto) 0.02 Immature Gran # (Auto) 0.01 Sodium Potassium Chloride Carbon Dioxide Anion Gap BUN Creatinine Est Cr Clr Drug Dosing Est GFR ( Amer) Est GFR (Non-Af Amer) BUN/Creatinine Ratio Glucose POC Glucose 126 H Calcium Total Bilirubin AST ALT Alkaline Phosphatase Total Protein Albumin Globulin Albumin/Globulin Ratio Lipase SARS-CoV-2, RNA, NAAT NEGATIVE 06/10/21 06/10/21 06/10/21 05:57 06:58 12:35 WBC RBC Hgb Hct MCV MCH MCHC RDW Std Deviation RDW Coeff of Geri Plt Count MPV Immature Gran % (Auto) Neut % (Auto) Lymph % (Auto) Rice % (Auto) Eos % (Auto) Baso % (Auto) Neut # (Auto) Lymph # (Auto) Rice # (Auto) Eos # (Auto) Baso # (Auto) Immature Gran # (Auto) Sodium 140 Potassium 4.1 Chloride 108 H Carbon Dioxide 28 Anion Gap 4 BUN 11 Creatinine 0.76 Est Cr Clr Drug Dosing 52.9 Est GFR ( Amer) 90.8 Est GFR (Non-Af Amer) 78.4 BUN/Creatinine Ratio 14.5 Glucose 89 POC Glucose 87 75 Calcium 8.4 L Total Bilirubin 0.6 AST 280 H ALT 263 H Alkaline Phosphatase 135 H Total Protein 6.0 Albumin 3.5 Globulin 2.5 Albumin/Globulin Ratio 1.4 Lipase 3506 H SARS-CoV-2, RNA, NAAT Diagnostic Findings Cholangiopancreatography MRI 06/10/21 08:44 MR MRCP HISTORY: Common bile duct sludge/stones; post-ercp pancreatitis TECHNIQUE: MRCP of the abdomen was performed without contrast according to standard departmental protocol. COMPARISON STUDY: Abdominal ultrasound 06/09/2021. FINDINGS: Trace bilateral pleural effusions. There is edema within the pancreatic head/uncinate process with small associated edema/ascites within the right upper quadrant. This is consistent with acute pancreatitis. Prior cholecystectomy. 3-D MRCP images demonstrate multiple small nodular hypointense foci of the common hepatic duct which may correspond to the small stones/sludge seen on the prior ultrasound. The common hepatic duct measures 7 mm diameter which has improved in the interval. No significant intrahepatic bile duct dilatation. The remaining common bile duct is normal in course and caliber. The main pancreatic duct at the head of the pancreas is narrowed likely due to the edematous anchors. However, the remaining main pancreatic duct is normal and course and caliber. No hydronephrosis. The spleen and adrenal glands unremarkable. The visualized loops of bowel show no wall thickening or obstruction. IMPRESSION: 1. Edema within and surrounding the pancreatic head with a small amount of edema/ascites within the right upper quadrant. This likely represents acute pancreatitis. 2. Multiple small nodular hypointense foci within the common hepatic which likely may corresponds to the small stones/sludge seen on the prior ultrasound. However, the common bile duct and intrahepatic bile duct dilatation has improved in the interval. 3. Prior cholecystectomy. 4. Trace bilateral pleural effusions. ACT 112: Negative or not required by law. Electronically signed by: Kiko Kong M.D. 06/10/2021 12:37 PM PG Care Time/CCT Total # of Minutes Spent Total Time Spent with Patient: Total time spent is greater than 50% in coordination of care (as documented) at patient's floor/unit and/or counseling patient: Coding Level of Care Code 74385 Subseq Hosp Care Lvl 3 Diagnoses Post-ERCP acute pancreatitis K91.89; K85.90 Rib fracture S22.39XA Constipation K59.00 Celiac disease K90.0 Hyperlipidemia E78.5 Hypothyroidism E03.9 Idiopathic peripheral neuropathy G60.9 Insomnia G47.00 Osteoporosis M81.0 Prediabetes R73.03 GERD (gastroesophageal reflux disease) K21.9 Cervical stenosis of spine M48.02 Depression F32.A Abnormal LFTs R79.89
--- NOTE | 2021-06-10 12:39 | Magnetic Resonance Report ---
MR MRCP HISTORY: Common bile duct sludge/stones; post-ercp pancreatitis TECHNIQUE: MRCP of the abdomen was performed without contrast according to standard departmental prot ocol. COMPARISON STUDY: Abdominal ultrasound 06/09/2021. FINDINGS: Trace bilateral pleural effusions. There is edema within the pancreatic head/uncinate proce ss with small associated edema/ascites within the right upper quadrant. This is consistent with acute pancreatitis. Prior cholecystectomy. 3-D MRCP images demonstrate multiple small nodular hypointense foci of the common hepatic duct which may correspond to the small stones/sludge seen on the prior ult rasound. The common hepatic duct measures 7 mm diameter which has improved in the interval. No signif icant intrahepatic bile duct dilatation. The remaining common bile duct is normal in course and calib er. The main pancreatic duct at the head of the pancreas is narrowed likely due to the edematous anch ors. However, the remaining main pancreatic duct is normal and course and caliber. No hydronephrosis. The spleen and adrenal glands unremarkable. The visualized loops of bowel show no wall thickening or obstruction. IMPRESSION: 1. Edema within and surrounding the pancreatic head with a small amount of edema/ascites within the r ight upper quadrant. This likely represents acute pancreatitis. 2. Multiple small nodular hypointense foci within the common hepatic which likely may corresponds to the small stones/sludge seen on the prior ultrasound. However, the common bile duct and intrahepatic bile duct dilatation has improved in the interval. 3. Prior cholecystectomy. 4. Trace bilateral pleural effusions. ACT 112: Negative or not required by law. Electronically signed by: Kiko oKng M.D. 06/10/2021 12:37 PM
[2021-06-10] MEDS: LIDOCAINE 5% 1 PATCH TD SCH (12:50)
--- NOTE | 2021-06-10 12:57 | Gastrointestinal Consultation ---
Date of Consultation June 10, 2021 Assessment & Plan (1) Abnormal LFTs: (2) Acute pancreatitis: LR at 200/h Bowel rest (currently n.p.o). Analgesics. Discussed with Dr. Jaylen Woodson who will proceed with repeat ERCP today to ensure that there are no residual stones or sludge in the common bile duct. History of Present Illness Reason for Consultation: Post ERCP pancreatitis Requesting Physician: Dr. Dalal Attending Physician: Davie Sutton History of Present Illness Ms. Geeta Lechuga is a 71 yr old female pt of Dr. Campos with a hx of migraines, cervical spine stenosis, recent fall w rib fx, osteoporosis and pre- DM. She has had chronic nausea, for years. She is post distant cholecystectomy. Because imaging suggested cholelithiasis, an outpatient ERCP was completed yesterday. Unfortunately, on awakening she had some muscle twitching and for th at reason was transferred to [facility]. She had some chills and nausea yesterday, no vomiting but is post [place] fundoplication and is not able to vomit. On arrival here, there is mild leukocytosis at 12 and she is being covered with Zosyn. She has significant upper abdomen pain and is not able to tell me when this started but she did not have this prior to ERCP. On arrival, lipase was found to be elevated above 4000. Ultrasound suggested dilated that the common bile duct was dilated, with stones/sludge. MRCP is pending. Allergies Allergy/AdvReac Type Severity Reaction Status Date / Time gluten Allergy Unknown Verified 06/09/21 15:02 latex Allergy Rash Verified 06/09/21 15:02 morphine Allergy RASH, Verified 06/09/21 15:02 FEVER, NAUSEA Home Medications Medication Instructions Recorded Confirmed Type multivitamin (Multiple Vitamins) 1 tab PO QAM 12/21/18 06/09/21 History calcium carbonate 600 mg calcium 600 mg PO BID 11/20/20 06/09/21 History (1,500 mg) tablet levothyroxine 88 mcg tablet 88 mcg PO DAILY #90 tab 11/20/20 06/09/21 Rx zoledronic acid 5 mg/100 mL in See Rx Instructions IV .COMPLEX 11/20/20 06/09/21 Rx mannitol 5 %-water intravenous #100 ml piggybck pravastatin 20 mg tablet 20 mg PO HS #90 tab 02/25/21 06/09/21 Rx famotidine 40 mg tablet (Pepcid) 40 mg PO HS #90 tab 03/02/21 06/09/21 Rx lorazepam 0.5 mg tablet (Ativan) 0.5 mg PO Q8H PRN #30 tab 05/21/21 06/09/21 Rx promethazine 25 mg tablet 25 mg PO TID PRN #20 tab 05/21/21 06/09/21 Rx duloxetine 60 mg capsule,delayed 60 mg PO BID #180 cap 05/22/21 06/09/21 Rx release cyanocobalamin (vitamin B-12) 2,500 mcg PO DAILY #30 tab 05/28/21 06/09/21 Rx 2,500 mcg tablet pantoprazole 40 mg tablet,delayed 40 mg PO BID 06/09/21 06/09/21 History release Patient History Medical History Atrophic vaginitis Mosqueda's esophagus Celiac disease Cervical facet joint syndrome Cervical stenosis of spine Cervicogenic headache Chronic rhinitis Coronary heart disease Coronavirus infection (01/2020) january 2020 Depression Esophageal obstruction GERD (gastroesophageal reflux disease) Hyperlipidemia Hypothyroidism Idiopathic peripheral neuropathy Insomnia Irritable bowel syndrome with constipation Osteoporosis Prediabetes Vitamin D deficiency Surgical History H/O: hysterectomy History of [place] fundoplication S/P appendectomy S/P cataract surgery S/P cholecystectomy S/P eye surgery macular hole repair S/P foot surgery S/P rotator cuff surgery R shoulder x 2006, 2008 Family History Brother Lung cancer Brain tumor Mother Colorectal cancer Liver cancer Sister Diabetes Breast cancer FH: stomach cancer Father Myocardial infarction Brother Bladder cancer Denies family history of Ovarian cancer Prostate cancer Social History Smoking Status: Never smoker Second Hand Exposure: No; Do You Dip or Chew Tobacco: No; Tobacco Cessation Education Requested by Patient: No Hx Alcohol Use: No Hx Substance Use: No Preferred Language: Trinidadian Communication Ability: Effective Visual Impairment: No Limitations Hearing Ability: Normal Senior Medical Technologist Required: No Beliefs That Will Affect Care: None marital status: Current Living Situation: Spouse current occupational status: retired Other Information That Helps Us Care for You: No Feels Safe at Home: Yes Safety Concerns: Feels Safe At This Time Childhood Exposure to Second-Hand Smoke: No caffeine: No during the past year weight has: remained stable Dental Care, Regularly: No Physical Activity Frequency: 5-6 Times per Week Seatbelt Use: always Sunscreen Use: Yes Assistive Devices: None Review of Systems Review of Systems: ROS: Gen: Denies weakness, fevers, weight loss Eyes: No eye redness, or pain, no recent vision changes Resp: No SOB, no cough Cardio: No palpitations/irregular beats, no chest pain GI: As per HPI, otherwise (-) : Denies pain on urination Skin: No jaundice, itching or new rashes Physical Exam Constitutional: well developed, + ill appearing, + thin and cooperative Eyes: PERRL, conjunctivae normal, anicteric sclerae Respiratory: normal respiratory effort, lungs clear to auscultation normal respiratory effort and able to speak in complete sentences; no respiratory distress, no labored breathing, does not use accessory muscles and no cough Cardiovascular: RRR, no murmur, no edema Gastrointestinal (Abdomen): Inspection/Auscultation: abdomen normal to inspection and normal bowel sounds; abdomen not distended and no abdominal edema Percussion/Palpation: + abdomen tender (Moderately tender in the entire upper abdomen) and abdomen soft; no guarding and abdomen not rigid Skin: no rashes, warm and dry normal turgor Neurologic: PERRL, EOMI, accommodation nl, no face palsy, no dysarthria awake; not confused Psychiatric: Orientation: alert, oriented x 3 and cooperative Lymphatic: no cervical or axillary lymphadenopathy Results & Data ([facility]) Vital Signs (Past 12 Hours) Vital Signs Temp Pulse Resp BP Pulse Ox 06/10/21 11:29 36.9 C 98 H 18 110/61 99 06/10/21 07:00 37 C 92 H 18 101/52 L 92 Laboratory Results WBC 8.7, Hb 11.2, HCT 33.6, PLT is 347, INR 1.0, NA 140, K4.1, BUN 11, CR 0.76, glucose 89, T bili 0.6, AST 280, ALT 263, alk phos 135, lipase was 4809 now 3506. Diagnostic Findings MRCP 06/10/21: 1. Edema within and surrounding the pancreatic head with a small amount of edema/ascites within the right upper quadrant. This likely represents acute pancreatitis. 2. Multiple small nodular hypointense foci within the common hepatic which likely may corresponds to the small stones/sludge seen on the prior ultrasound. However, the common bile duct and intrahepatic bile duct dilatation has improved in the interval. 3. Prior cholecystectomy. 4. Trace bilateral pleural effusions. US 06/09/21: 1. Status post cholecystectomy. 2. The common bile duct is dilated and contains intraluminal debris/sludge. 3. There is only mild dilatation of the intrahepatic bile ducts. (1) Acute pancreatitis Acute pancreatitis complication: unspecified Pancreatitis type: unspecified pancreatitis type Qualified Code(s): K85.90 - Acute pancreatitis without necrosis or infection, unspecified
--- NOTE | 2021-06-10 14:21 | Anesthesiology Consultation ---
Date of Service June 10, 2021 Assessment & Plan Chart Review Chart Review: Acceptable Risk for Surgery Consults Requested none History Surgery Operation Date: 06/10/21 09:30 Proposed Procedures p Endoscopic Retrograde Cholangiopancreatogram - Isra Woodson DO Height/Weight Height: 5 ft 2 in Weight: 58.6 kg Allergies Allergy/AdvReac Type Severity Reaction Status Date / Time gluten Allergy Unknown Verified 06/09/21 15:02 latex Allergy Rash Verified 06/09/21 15:02 morphine Allergy RASH, Verified 06/09/21 15:02 FEVER, NAUSEA Medications Home Medications Medication Instructions Recorded Confirmed Last Taken multivitamin (Multiple Vitamins) 1 tab PO QAM 12/21/18 06/09/21 09/20/20 calcium carbonate 600 mg calcium 600 mg PO BID 11/20/20 06/09/21 Unknown (1,500 mg) tablet levothyroxine 88 mcg tablet 88 mcg PO DAILY #90 tab 11/20/20 06/09/21 06/09/21 05:00 zoledronic acid 5 mg/100 mL in See Rx Instructions IV .COMPLEX 11/20/20 06/09/21 Unknown mannitol 5 %-water intravenous #100 ml piggybck pravastatin 20 mg tablet 20 mg PO HS #90 tab 02/25/21 06/09/21 Unknown famotidine 40 mg tablet (Pepcid) 40 mg PO HS #90 tab 03/02/21 06/09/21 Unknown lorazepam 0.5 mg tablet (Ativan) 0.5 mg PO Q8H PRN #30 tab 05/21/21 06/09/21 Unknown promethazine 25 mg tablet 25 mg PO TID PRN #20 tab 05/21/21 06/09/21 Unknown duloxetine 60 mg capsule,delayed 60 mg PO BID #180 cap 05/22/21 06/09/21 06/09/21 05:00 release cyanocobalamin (vitamin B-12) 2,500 mcg PO DAILY #30 tab 05/28/21 06/09/21 Unk nown 2,500 mcg tablet pantoprazole 40 mg tablet,delayed 40 mg PO BID 06/09/21 06/09/21 06/09/21 05:00 release Active Medications Generic Name Dose Route Start Last Admin Trade Name Freq PRN Reason Stop Dose Admin Enoxaparin Sodium 40 mg 06/09/21 21:00 06/09/21 22:03 Enoxaparin Inj 40 Mg/0.4 Ml Syr SQ 07/09/21 20:59 40 mg QPM SHAYLA Administration Hydromorphone HCl 0.25 mg 06/09/21 19:47 06/10/21 06:13 Hydromorphone Inj 0.5 Mg/0.5 Ml Syr IV 06/23/21 19:46 0.25 mg Q6H PRN Administration Pain 6-10 Lactated Ringer's 1,000 mls @ 200 mls/hr 06/09/21 16:04 06/10/21 06:17 Lr IV 07/09/21 16:03 200 mls/hr .Q5H SHAYLA Administration Pantoprazole Sodium 40 mg/ 10 mls @ 5 mls/min 06/09/21 21:00 06/10/21 10:45 Syringe IV 07/09/21 20:59 5 mls/min BID SHAYLA Administration Lidocaine 3 patch 06/10/21 11:15 06/10/21 12:50 Lidocaine 5% 1 Patch TD 07/10/21 11:14 3 patch QAM SHAYLA Administration Miscellaneous 1 ea 06/09/21 21:00 06/09/21 20:30 Remove Lidoderm Patch N/A 07/09/21 20:59 Not Given DAILY@2100 SHAYLA Ondansetron HCl 4 mg 06/09/21 19:47 06/10/21 06:12 Ondansetron Inj 2 Mg/Ml 2 Ml Vial IV 07/09/21 19:46 4 mg Q6H PRN Administration Nausea Polyethylene Glycol 17 gm 06/10/21 09:00 06/10/21 12:52 Polyethylene (Miralax) 17 Gm Pack PO 07/10/21 08:59 17 gm DAILY SHAYLA Administration NPO Date Last Intake of Fluids: 06/10/21 Time Last Intake of Fluids: 12:52 Last Intake of Fluids Comment: "water with metamucil" Date Last Intake of Solids: 06/08/21 Time Last Intake of Solids: 18:00 Past Medical History Medical History Atrophic vaginitis Mosqueda's esophagus Celiac disease Cervical facet joint syndrome Cervical stenosis of spine Cervicogenic headache Chronic rhinitis Coronary heart disease Coronavirus infection (01/2020) january 2020 Depression Esophageal obstruction GERD (gastroesophageal reflux disease) Hyperlipidemia Hypothyroidism Idiopathic peripheral neuropathy Insomnia Irritable bowel syndrome with constipation Osteoporosis Prediabetes Vitamin D deficiency Past Family History Family History Brother Lung cancer Brain tumor Mother Colorectal cancer Liver cancer Sister Diabetes Breast cancer FH: stomach cancer Father Myocardial infarction Brother Bladder cancer Denies family history of Ovarian cancer Prostate cancer Past Surgical History Surgical History H/O: hysterectomy History of [place] fundoplication S/P appendectomy S/P cataract surgery S/P cholecystectomy S/P eye surgery macular hole repair S/P foot surgery S/P rotator cuff surgery R shoulder x 2, 2006, 2008 Social History Smoking Status: Never smoker Do You Dip or Chew Tobacco: No Hx Alcohol Use: No Hx Substance Use: No substance use type: does not use Physical Exam Vital Signs Last Vital Signs Temp 36.9 C 06/10/21 14:02 Pulse 72 06/10/21 14:02 Resp 18 06/10/21 14:02 BP 109/55 L 06/10/21 14:02 Pulse Ox 98 06/10/21 14:02 Testing Laboratory Results 06/10/21 05:57 06/10/21 05:57 06/10/21 06/10/21 12:35 06:58 POC Glucose 75 87
[2021-06-10] MEDS ORDERED: ONDANSETRON INJ 2 MG/ML 2 ML VIAL IV PRN (14:22)
[2021-06-10] MEDS ORDERED: ATROPINE SULFATE 0.1 MG/ML 10ML SYR IV PRN (14:22)
[2021-06-10] MEDS ORDERED: fentaNYL citrate 100 MCG/2 ML VIAL IV PRN (14:22)
[2021-06-10] MEDS ORDERED: HYDROmorphone INJ 2 MG/ML SYR/VIAL IV PRN (14:22)
[2021-06-10] MEDS ORDERED: ePHEDrine sulfate 50 MG/ML AMP IV PRN (14:22)
[2021-06-10] MEDS ORDERED: PROMETHAZINE HCL 12.5 MG in SODIUM CHLORIDE 0.9% 50 ML IV PRN (14:22)
[2021-06-10] MEDS ORDERED: PROPOFOL IV EMULSION 10 MG/ML 20 ML VIAL IV ONE (14:24)
[2021-06-10] MEDS ORDERED: LIDOCAINE 2% 2 ML VIAL/AMP(20MG/ML) INFIL ONE (14:24)
[2021-06-10] MEDS ORDERED: ROCURONIUM BROMIDE 10 MG/ML 5 ML VIAL IV ONE (14:24)
[2021-06-10] MEDS ORDERED: fentaNYL citrate 100 MCG/2 ML VIAL ONE (14:25)
[2021-06-10] MEDS ORDERED: MIDAZOLAM HCL 1 MG/ML 2ML VIAL ONE (14:25)
--- NOTE | 2021-06-10 14:45 | History & Physical Bridge Note ---
Date of Service June 10, 2021 History & Physical Bridge Note I have examined the patient, reviewed the History & Physical and in the interval since the performance of the History & Physical I have noted the following changes of clinical significance: no changes noted. The patient was referred to the emergency room after an ERCP yesterday. The ERCP was notable for papillary stenosis and several small stone removed from the common bile duct. Unfortunately appears that she did develop post ERCP pancreatitis manifest by abdominal pain. In addition her liver tests are more elevated than they were in the past. Imaging seems to suggest retained common bile duct stones or sludge material. Another possibility would be air given the recent ERCP and instrumentation. Given the constellation of symptoms we will proceed with a repeat ERCP and potential gallstone extraction and perhaps biliary stent insert ion. I discussed the risks of the procedure with the patient to include bleeding, infection, perforation, pain, pancreatitis and need for follow-up imaging studies.
[2021-06-10] MEDS ORDERED: INDOMETHACIN 50 MG SUPP PR ONE (14:58)
[2021-06-10] MEDS ORDERED: DEXAMETHASONE SOD INJ 4 MG/ML VIAL ONE (15:38)
[2021-06-10] MEDS ORDERED: ONDANSETRON INJ 2 MG/ML 2 ML VIAL ONE (15:39)
[2021-06-10] MEDS ORDERED: NEOSTIGMINE METHYLSULFATE 1 MG/ML 10ML VIAL ONE (15:39)
[2021-06-10] MEDS ORDERED: GLYCOPYRROLATE 0.2 MG/ML VIAL ONE (15:39)
--- NOTE | 2021-06-10 16:08 | GI REPORT ---
Patient Name: Geeta Lechuga Procedure Date: 06/10/2021 3:06 PM Date of : 1950 Admit Type: Inpatient Age: 71 Gender: Female Attending MD: Isra Woodson DO Procedure: ERCP Providers: Isra Woodson DO Referring MD: Cris Cooper Indications: Abdominal pain of suspected biliary origin, Abnormal MRCP Medicines: General Anesthesia Complications: No immediate complications. Estimated blood loss: Minimal. Estimated Blood Loss: Estimated blood loss was minimal. Procedure: Pre-Anesthesia Assessment: - Prior to the procedure, a History and Physical was performed, and patient medications, allergies and sensitivities were reviewed. The patient's tolerance of previous anesthesia was reviewed. - The risks and benefits of the procedure and the sedation options and risks were discussed with the patient. All questions were answered and informed consent was obtained. - Patient identification and proposed procedure were verified prior to the procedure by the physician, the nurse and the corset fitter. The procedure was verified in the procedure room. - Pre-procedure physical examination revealed no contraindications to sedation. - ASA Grade Assessment: III - A patient with severe systemic disease. - After reviewing the risks and benefits, the patient was deemed in satisfactory condition to undergo the procedure. - The anesthesia plan was to use general anesthesia. - Immediately prior to administration of medications, the patient was re-assessed for adequacy to receive sedatives. - The heart rate, respiratory rate, oxygen saturations, blood pressure, adequacy of pulmonary ventilation, and response to care were monitored throughout the procedure. - The physical status of the patient was re-assessed after the procedure. After obtaining informed consent, the scope was passed under direct vision. Throughout the procedure, the patient's blood pressure, pulse, and oxygen saturations were monitored continuously. The Duodenoscope was introduced through the mouth, and advanced to the duodenum and used to inject contrast into the bile duct. The ERCP was accomplished without difficulty. The patient tolerated the procedure well. Findings: A vamp marker film of the abdomen was obtained. Surgical clips, consistent with a previous cholecystectomy, were seen in the area of the right upper quadrant of the abdomen. In addition, air could be seen within the biliary tree consistent with her recent biliary sphincterotomy. The esophagus was successfully intubated under direct vision without detailed examination of the pharynx, larynx, and associated structures, and upper GI tract. The upper GI tract was grossly normal. A biliary sphincterotomy had been performed. The sphincterotomy appeared open. The major papilla was on the rim of a diverticulum. The bile duct was deeply cannulated with the short-nosed traction sphincterotome and guidewire. Contrast was injected. I personally interpreted the bile duct images. Contrast extended to the hepatic ducts. The lower third of the main bile duct and middle third of the main bile duct contained filling defect(s) thought to be sludge. To discover objects, the biliary tree was swept with a 12 mm balloon starting at the bifurcation. Debris was swept from the duct in addition to several small blood clots. Initially, a 10 Fr 7 cm plastic biliary stent was placed. Upon placement of the stent some bleeding was noted from within it. This likely represents hemobilia from her previously impacted gallstone that was removed yesterday. Therefore the plastic stent was removed and replaced with one 10 Fr by 8 cm covered metal stent ([place] Viabil, [id number], SN [id number]) was placed 7.5 to 8 cm into the common bile duct. Bile flowed through the stent (no further bleening was noted). The stent was in good position. The total fluoroscopy exposure time was 1 minute and 23 seconds. The endoscope was withdrawn from the patient. Indomethacin 100 mg was given via suppository to decrease the risk of post-ERCP pancreatitis (PEP). Impression: - Prior biliary sphincterotomy appeared open. - The major papilla was on the rim of a diverticulum. - The biliary tree was swept, debris and some blood was found. - One covered metal stent was placed into the common bile duct for suspected hemobilia after stone extraction on 06/09/21. - Indomethacin given to decrease risk of post-ERCP pancreatitis. Recommendation: - Avoid aspirin and nonsteroidal anti-inflammatory medicines for 1 week. - NPO today. - Use broad spectrum antibiotics for 10 days. - Protonix 40 mg twice daily while patient remains inpatient then 40 mg daily for 4 weeks - Monitor CBC. If a significant drop occurs patient would need referral to a center with IR. - Repeat ERCP in 8 weeks to remove stent. Isra Woodson D.O. Isra Woodson, 06/10/2021 4:08:37 PM This report has been signed electronically. Note Initiated On: 06/10/2021 3:06 PM Number of Addenda: 0 I attest to the content of the Intraoperative Record and orders documented therein, exceptions below {[id number]}
--- NOTE | 2021-06-10 16:09 | Post Operative Brief Note ---
Immediate Post Op Note v1 Date of Surgery June 10, 2021 Pre & Post Diagnosis Operation Date: 06/10/21 09:30 Pre-Op Diagnosis: POST ERCP PANCREATITIS Post-Op Diagnosis: Hemobilia, covered metal stent placed I identified the patient and participated in the time-out.: Yes Procedure Operation Date: 06/10/21 09:30 Actual Procedures p Endoscopic Retrograde Cholangiopancreato - Isra Woodson DO Surgeon Isra Woodson DO [employer] Specialist none Estimated Blood Loss 0 Findings Consistent with Post-Op Diagnosis
--- NOTE | 2021-06-10 16:13 | Communication Note ---
Date of Service: June 10, 2021 The patient underwent a repeat ERCP today due to suspicious findings on her MRCP elevated liver tests and abdominal discomfort. The patient had a patent biliary sphincterotomy but some evidence of filling defects. Upon removal of the filling defects these were found to be small blood clots. This likely represents hemobilia from bleeding after removal of her gallstones yesterday. Due to bleeding I did place a covered metal stent which will stay in place for approximately 6 to 8 weeks. The pancreatic duct was not manipulated during today's examination. Recommendations Continue with IV hydration Continue with antibiotic coverage for total of 10 days Continue with twice daily Protonix, reduce to once daily upon discharge Avoid nonsteroidals and anticoagulation for 5 days please If rebleeding occurs with a significant drop in hemoglobin and hematocrit the patient may need referral to a tertiary center with interventional radiology capabilities
--- NOTE | 2021-06-10 16:18 | Anesthesiology Progress Note ---
Date of Service June 10, 2021 Anesthesia Post Procedure Vital Signs Vital Signs: Temp Pulse Resp BP Pulse Ox Pulse Ox 06/10/21 16:10 36.5 C 74 24 145/76 H 100 06/10/21 14:02 36.9 C 72 18 109/55 L 98 06/10/21 11:29 36.9 C 98 H 18 110/61 99 06/10/21 07:00 37 C 92 H 18 101/52 L 92 06/09/21 22:26 36.7 C 68 18 130/69 95 06/09/21 19:47 36.5 C 85 18 160/70 H 97 97 Pain Intensity Abdomen: Pain Intensity: 5 Transfer of Care Handoff Completed per policy Notes Mental Status: alert / awake / arousable and participated in evaluation Patient Amnestic to Procedure: Yes Nausea / Vomiting: adequately controlled Pain: adequately controlled Airway Patency, RR, SpO2: stable & adequate BP & HR: stable & adequate Hydration State: stable & adequate Anesthetic Complications: no major complications apparent
--- NOTE | 2021-06-10 16:43 | Anesthesiology Progress Note ---
Date of Service June 10, 2021 Anesthesia Post Procedure Vital Signs Vital Signs: Temp Pulse Resp BP Pulse Ox Pulse Ox 06/10/21 16:30 60 24 127/58 L 96 06/10/21 16:20 63 25 H 122/62 100 06/10/21 16:10 36.5 C 74 24 145/76 H 100 06/10/21 14:02 36.9 C 72 18 109/55 L 98 06/10/21 11:29 36.9 C 98 H 18 110/61 99 06/10/21 07:00 37 C 92 H 18 101/52 L 92 06/09/21 22:26 36.7 C 68 18 130/69 95 06/09/21 19:47 36.5 C 85 18 160/70 H 97 97 Pain Intensity Abdomen: Pain Intensity: 5 Transfer of Care Handoff Completed per policy Notes Mental Status: alert / awake / arousable and participated in evaluation Patient Amnestic to Procedure: Yes Nausea / Vomiting: adequately controlled Pain: adequately controlled Airway Patency, RR, SpO2: stable & adequate BP & HR: stable & adequate Hydration State: stable & adequate Anesthetic Complications: no major complications apparent
--- NOTE | 2021-06-10 16:51 | Fluoroscopy Report ---
FL ERCP biliary ductal CLINICAL HISTORY: ERCP COMPARISON STUDY: None. FLUOROSCOPY TIME: 1 minute and 20 seconds. FINDINGS: 8 fluoroscopic spot images of the right upper quadrant were submitted. The ampulla was princess ulated and contrast was injected into the common bile duct. A balloon sweep was performed. This is fo llowed by placement of a common bile duct stent which appears in good position. IMPRESSION: Fluoroscopic assistance provided for placement of common bile duct stent appears in good position. ACT 112: Negative or not required by law. Electronically signed by: Kiko Kong M.D. 06/10/2021 4:49 PM
[2021-06-10] MEDS: PIPERACILLIN/TAZOBACTAM 3.375 GM in DEXTROSE 5% 100 ML IV SCH (17:03)
[2021-06-10] MEDS ORDERED: COUGH DROP (SUGAR FREE) LOZ 24 LOZ/1 BOX BUCCAL ONE (20:00)
[2021-06-11] MEDS: PIPERACILLIN/TAZOBACTAM 3.375 GM in DEXTROSE 5% 100 ML IV SCH ×2 (00:20→08:35)
[2021-06-11] MEDS: LACTATED RINGER'S 1,000 ML IV SCH ×3 (03:44→18:37)
[2021-06-11 08:24] LABS: Hematocrit (blood only) 28.6 % (37-47); Hemoglobin 9.6 g/dL (12.0-16.0); Mean Corpuscular Hemoglobin 30.7 pg (25-34); Mean Corpuscular Hgb Conc 33.6 g/dL (32-36); Mean Corpuscular Volume 91.4 fL (80-100); Mean Platelet Volume 9.3 fL (7.4-10.4); Platelet Count 264 K/uL (130-400); RDW Coefficient of Variation 13.7 % (11.5-14.5); RDW Standard Deviation 45.7 fL (36.4-46.3); Red Blood Count 3.13 M/uL (4.2-5.4)
[2021-06-11] MEDS: PANTOprazole 40 MG in SYRINGE 0 ML IV SCH ×2 (08:35→21:01)
[2021-06-11] MEDS: LIDOCAINE 5% 1 PATCH TD SCH ×2 (08:36→08:44)
[2021-06-11] MEDS: POLYETHYLENE (MIRALAX) 17 GM PACK PO SCH (08:36)
[2021-06-11 09:00] LABS: Albumin Globulin Ratio 1.5 (0.9-2); Albumin Level 2.8 gm/dl (3.4-5.0); BUN Creatinine Ratio 17.3 (10-20); Bilirubin,Total 0.5 mg/dl (0.2-1.0); Calcium 7.8 mg/dl (8.5-10.1); Creatinine Clr Calc Pharmacy 53.6 ml/min; Est GFR (African American) 92.3 ml/min; Est GFR (Non-African American) 79.6 ml/min; Globulin 1.9 gm/dl (2.5-4.0); Magnesium 1.7 mg/dl (1.7-2.4); Potassium 3.6 mmol/L (3.5-5.1); Total Protein 4.7 gm/dl (6.0-8.3)
--- NOTE | 2021-06-11 14:01 | Gastroenterology Progress Note ---
Date of Service June 11, 2021 Assessment & Plan (1) Acute pancreatitis: Plan: Pancreatitis appears clinically resolved. ? caused by hemobilia from bleeding after removal choledocholithiasis on 06/09/21. Ducts were cleared after repeat ERCP on 06/10/21. Plan: A covered metal stent was placed in the CBD which will stay in place for approximately 6 to 8 weeks. Our office will contact her to arrange procedure to remove the stent. Advance diet. Continue with antibiotic coverage for total of 10 days BID PPI daily x 2 months as an OP. Avoid NSAIDs and anticoagulants for 5 days. GI will sign off. Please notify us of any new GI issues. Admission and Anticipated Discharge Date Admission Date: June 09, 2021 Supervising Physician Co-Signing Physician Notes Attending attestation I have seen, examined this patient, and agree with the findings and above by our mid-level provider KWAME Hernandez, with the following additions: Doing well, soft abd Subjective 71 yr old female admitted after experiencing pain, nausea after ERCP on 06/09 w sphincterotomy and extraction of a stone. Lipase >3000 on arrival ->149 today. LFTs have been normal. CT/MRCP had suggested possible retained stones. Repeat ERCP yesterday with blood/small clots in the CBD thought to be present due to ulceration of the duct from the impacted stone that was removed on 06/09. No bleeding from the sphincterotomy. The bile duct was cleared during repeat ERCP. Today she feels very good, is asking to go home. No nausea, no pain - which is the first time in months. Hb 11->9.6, but no blood in BMs, no hematemesis, BUN normal. Decrease in Hb likely dilutional w IV hydration tx of pancreatitis. Review of Systems Review of Systems: ROS: (as of today) Gen: Denies weakness, fevers Eyes: No eye redness, or pain, no recent vision changes Resp: No SOB, no cough Cardio: No palpitations/irregular beats, no chest pain GI: No abdominal pain, no nausea/vomiting : Denies pain on urination Skin: No jaundice, itching or new rashes Physical Exam Constitutional: well developed, + thin and cooperative Eyes: PERRL, conjunctivae normal, anicteric sclerae Respiratory: normal respiratory effort, lungs clear to auscultation Cardiovascular: RRR, no murmur, no edema Gastrointestinal (Abdomen): normal bowel sounds, soft, nontender, no hepatosplenomegaly Skin: no rashes, warm and dry normal turgor Neurologic: PERRL, EOMI, accommodation nl, no face palsy, no dysarthria awake; not confused Psychiatric: A+Ox3, euthymic affect Orientation: cooperative Results & Data ([facility]) Vital Signs (Past 12 Hours) Vital Signs Temp Pulse Resp BP Pulse Ox 06/11/21 07:56 36.8 C 65 18 124/66 94 Laboratory Results WBC 7.5, Hb 9.6, Hct 28, Plts 264, Na 139, K 3.6, BUN 13, Cr 0.75, glucose 90. T Bili 0.5, AST 71, ALT 126, Alk Phos 97 Lipase 149 Diagnostic Findings Flouroscopy ERCP film interpretation on 06/11/21: Fluoroscopic assistance provided for placement of common bile duct stent appears in good position. (1) Acute pancreatitis Acute pancreatitis complication: unspecified Pancreatitis type: unspecified pancreatitis type Qualified Code(s): K85.90 - Acute pancreatitis without necrosis or infection, unspecified
[2021-06-11] MEDS: AMOXICILLIN/CLAVULANATE 875 MG TAB PO SCH (18:25)
--- NOTE | 2021-06-11 21:24 | Hospitalist Progress Note ---
Date of Service June 11, 2021 Assessment & Plan (1) Hemobilia: Plan: as discovered on repeat ERCP yesterday by [facility] metal stent placed in the CBD mild acute blood loss anemia from such filling defects seen on MRCP were not gallstones but small blood clots in the CBD no evidence of ongoing bleeding AST/ALT improving feeling great no abd pain observe again overnight of note - lovenox stopped, no NSAIDs GI recommending 1 week of augmentin post-d/c. (2) Acute blood loss anemia: Plan: 2nd #1 above mild trend cbc s/p metal CBD stent yesterday during ERCP (3) Post-ERCP acute pancreatitis: Plan: Post-procedural acute pancreatitis (complication of ERCP). Clinically and biochemically resolved; lipase nearly normal this am. Lower LR to 75cc/hr. Liquid diet per GI today then advance to low fat/GF diet in am. (4) Abnormal LFTs: Plan: 2nd to CBD hemobilia. Improving LFTs today. s/p ERCP yesterday w/ CBD metal stent. repeat LFTs am. (5) Rib fracture: Plan: 2nd to fall on 05/25. mildly displaced lateral left third rib fracture. suspected acute nondisplaced fracture of the lateral left fifth rib. schedule lidoderm patches. Recent 25-OH vit D level was wnl. (6) Constipation: Plan: KUB with moderate stool burden. Bowel regimen. Improved. (7) Celiac disease: Plan: GF-diet (8) Hyperlipidemia: Plan: Hold statin in light of #2. likely can resume at d/c. (9) Hypothyroidism: Plan: levothyroxine 88mcg daily. (10) Idiopathic peripheral neuropathy: Plan: resume cymbalta. med rec shows 60mg BID as her dosing regimen. Seen by neurology on 05/22, to have EMG/NCV of B/L LE with Dr. Zuniga in June this spring. (11) Insomnia: Plan: Cont melatonin Cont ambien She would benefit from a different sleep aid - trazodone, doxepin, etc are possibilities will d/w patient (12) Osteoporosis: (13) Prediabetes: Plan: most recent A1c 6.0. trend BSGs while here (14) GERD (gastroesophageal reflux disease): Plan: cont PPI twice daily (15) Cervical stenosis of spine: Plan: scheduled for epidural steroid injections in June. (16) Depression: Plan: resume cymbalta Plan: care d/w [facility] anticipate d/c in am Admission and Anticipated Discharge Date Admission Date: June 09, 2021 Subjective patient feels much better abd pain is resolved no nausea no emesis having bowel movements best she has felt in some time full liquids started by GI earlier today and tolerating such still w/ chronic headaches Review of Systems Review of Systems: gen - no fevers cv - no cp pulm - no dyspnea GI - no pain/N/V Physical Exam Physical Exam: gen - NAD, looks great today mouth - MMM heart - RRR, s1 s2, no murmur lungs - CTA b/l abd - soft, NT, ND, BS+, no HSM ext - no edema, pulses 2+ b/l skin - no jaundice Results & Data Results & Data ([facility]) Vital Signs (Past 12 Hours) Vital Signs Temp Pulse Resp BP Pulse Ox 06/11/21 14:00 37 C 65 18 145/66 H 97 Laboratory Results Laboratory Results - last 24 hr 06/11/21 06/11/21 06/11/21 00:05 06:08 07:19 WBC 7.50 RBC 3.13 L Hgb 9.6 L Hct 28.6 L MCV 91.4 MCH 30.7 MCHC 33.6 RDW Std Deviation 45.7 RDW Coeff of Geri 13.7 Plt Count 264 MPV 9.3 PT INR Sodium Potassium Chloride Carbon Dioxide Anion Gap BUN Creatinine Est Cr Clr Drug Dosing Est GFR ( Amer) Est GFR (Non-Af Amer) BUN/Creatinine Ratio Glucose POC Glucose 96 90 Calcium Magnesium Total Bilirubin AST ALT Alkaline Phosphatase Total Protein Albumin Globulin Albumin/Globulin Ratio Lipase 06/11/21 06/11/21 06/11/21 07:19 07:19 12:17 WBC RBC Hgb Hct MCV MCH MCHC RDW Std Deviation RDW Coeff of Geri Plt Count MPV PT 11.0 INR 1.0 Sodium 139 Potassium 3.6 Chloride 109 H Carbon Dioxide 23 Anion Gap 7 BUN 13 Creatinine 0.75 Est Cr Clr Drug Dosing 53.6 Est GFR ( Amer) 92.3 Est GFR (Non-Af Amer) 79.6 BUN/Creatinine Ratio 17.3 Glucose 86 POC Glucose 115 H Calcium 7.8 L Magnesium 1.7 Total Bilirubin 0.5 AST 71 H ALT 126 H Alkaline Phosphatase 97 Total Protein 4.7 L D Albumin 2.8 L Globulin 1.9 L Albumin/Globulin Ratio 1.5 Lipase 149 H 06/11/21 18:35 WBC RBC Hgb Hct MCV MCH MCHC RDW Std Deviation RDW Coeff of Geri Plt Count MPV PT INR Sodium Potassium Chloride Carbon Dioxide Anion Gap BUN Creatinine Est Cr Clr Drug Dosing Est GFR ( Amer) Est GFR (Non-Af Amer) BUN/Creatinine Ratio Glucose POC Glucose 214 H Calcium Magnesium Total Bilirubin AST ALT Alkaline Phosphatase Total Protein Albumin Globulin Albumin/Globulin Ratio Lipase PG Care Time/CCT Total # of Minutes Spent Total Time Spent with Patient: Total time spent is greater than 50% in coordination of care (as documented) at patient's floor/unit and/or counseling patient: Coding Level of Care Code 26534 Subseq Hosp Care Lvl 2 Diagnoses Post-ERCP acute pancreatitis K91.89; K85.90 Abnormal LFTs R79.89 Rib fracture S22.39XA Constipation K59.00 Celiac disease K90.0 Hyperlipidemia E78.5 Hypothyroidism E03.9 Idiopathic peripheral neuropathy G60.9 Insomnia G47.00 Osteoporosis M81.0 Prediabetes R73.03 GERD (gastroesophageal reflux disease) K21.9 Cervical stenosis of spine M48.02 Depression F32.A Hemobilia K83.8 Acute blood loss anemia D62
[2021-06-11] MEDS: PANTOprazole 40 MG TAB PO SCH (23:19)
[2021-06-12] MEDS ORDERED: LEVOTHYROXINE SODIUM 88 MCG TABLET PO SCH (06:30)
[2021-06-12 08:29] LABS: Hematocrit (blood only) 36.4 % (37-47); Hemoglobin 12.2 g/dL (12.0-16.0); Mean Corpuscular Hemoglobin 30.8 pg (25-34); Mean Corpuscular Hgb Conc 33.5 g/dL (32-36); Mean Corpuscular Volume 91.9 fL (80-100); Mean Platelet Volume 9.3 fL (7.4-10.4); Platelet Count 320 K/uL (130-400); RDW Coefficient of Variation 13.8 % (11.5-14.5); RDW Standard Deviation 46.2 fL (36.4-46.3); Red Blood Count 3.96 M/uL (4.2-5.4); White Blood Count 6.04 K/uL (4.8-10.8)
[2021-06-12] MEDS: PANTOprazole 40 MG TAB PO SCH (08:39)
[2021-06-12] MEDS: LIDOCAINE 5% 1 PATCH TD SCH (08:39)
[2021-06-12] MEDS: POLYETHYLENE (MIRALAX) 17 GM PACK PO SCH (08:40)
[2021-06-12 08:50] LABS: Calcium 8.7 mg/dl (8.5-10.1); Creatinine Clr Calc Pharmacy 51.6 ml/min; Potassium 3.8 mmol/L (3.5-5.1)
[2021-06-12] MEDS ORDERED: DULoxetine HCL 60 MG CAP PO SCH (09:00)
[2021-06-12] MEDS ORDERED: PANTOprazole 40 MG TAB PO SCH (09:00)
[2021-06-12] MEDS: AMOXICILLIN/CLAVULANATE 875 MG TAB PO SCH (09:57)
--- NOTE | 2021-06-12 10:19 | Discharge Summary ---
Date of Service June 12, 2021 Admission HPI Per Admitting Provider Patient is a 71 y/o female with a PMH of GERD, Mosqueda's esophagus, celiac disease, IBS, hypothyroidism, hyperlipidemia, peripheral neuropathy, C-spine stenosis, fall on 05/25 resulting in L sided rib fractures, and insomnia who presents today after CBD stone removal at [facility] with abdominal pain. Patient initially was transferred here via EMS after she was found to be stuttering and with a new tremor after awakening from her procedure. This resolved around 2 PMin our ED without any intervention and patient returned to baseline, was given some apple juice and going to be discharged when she develop ed stabbing abdominal pain on her right side. It does not radiate but was 10/10 before being given pain medication. She does have chronic nausea and abdominal pain due to Celiac dz/GERD/CBD stones however today's pain was worse and in a different location. She is nauseous today but without emesis, no bowel changes, no hematochezia or melena, no recent fever/chills, denies chest pain, palpitations, shortness of breath. Labs significant for WBC 12.56, glucose 146, AST 160, ALT 79, lipase 2809. GB U/S revealed common bile duct is dilated and contains intraluminal debris/sludge, only mild dilatation of the intrahepatic bile ducts. KUB unremarkable. Head CT showed no acute intracranial hemorrhage, evidence of acute territorial infarction, or other acute intracranial disease. CXR showed acute appearing mildly displaced lateral left third rib fracture with questioned acute nondisplaced fracture of the lateral left fifth rib, otherwise no acute cardiopulmonary abnormality or pneumothorax. Discharge Exam gen - NAD, looks great today mouth - MMM heart - RRR, s1 s2, no murmur lungs - CTA b/l abd - soft, NT, ND, BS+, no HSM ext - no edema, pulses 2+ b/l skin - no jaundice Discharge Data Allergies Allergy/AdvReac Type Severity Reaction Status Date / Time gluten Allergy Unknown Verified 06/09/21 15:02 latex Allergy Rash Verified 06/09/21 15:02 morphine Allergy RASH, Verified 06/09/21 15:02 FEVER, NAUSEA Consultations 06/09/21 14:55 ED Decision to Admit Stat 06/10/21 08:44 Consult Gastroenterology Routine Procedures Performed Operation Date: 06/10/21 09:30 Actual Procedures p Endoscopic Retrograde Cholangiopancreato - Isra Woodson, Ordered Studies 06/09/21 12:57 CT head/brain wo con Stat 06/09/21 14:40 US gallbladder Stat 06/10/21 08:44 MR MRCP Routine 06/10/21 15:12 FL ERCP biliary ductal Routine Hospital Course (1) Hemobilia: as discovered on repeat ERCP yesterday by [facility] Bapt[facility] metal stent placed in the CBD mild acute blood loss anemia from such filling defects seen on MRCP were not gallstones but small blood clots in the CBD no evidence of ongoing bleeding AST/ALT improving feeling great no abd pain observe again overnight of note - lovenox stopped, no NSAIDs GI recommending 1 week of augmentin post-d/c. (2) Acute blood loss anemia: 2nd #1 above mild trend cbc s/p metal CBD stent yesterday during ERCP (3) Post-ERCP acute pancreatitis: Post-procedural acute pancreatitis (complication of ERCP). Clinically and biochemically resolved; lipase nearly normal this am. Lower LR to 75cc/hr. Liquid diet per GI today then advance to low fat/GF diet in am. (4) Abnormal LFTs: 2nd to CBD hemobilia. Improving LFTs today. s/p ERCP yesterday w/ CBD metal stent. repeat LFTs am. (5) Rib fracture: 2nd to fall on 05/25. mildly displaced lateral left third rib fracture. suspected acute nondisplaced fracture of the lateral left fifth rib. schedule lidoderm patches. Recent 25-OH vit D level was wnl. (6) Constipation: KUB with moderate stool burden. Bowel regimen. Improved. (7) Celiac disease: GF-diet (8) Hyperlipidemia: Hold statin in light of #2. likely can resume at d/c. (9) Hypothyroidism: levothyroxine 88mcg daily. (10) Idiopathic peripheral neuropathy: resume cymbalta. med rec shows 60mg BID as her dosing regimen. Seen by neurology on 05/22, to have EMG/NCV of B/L LE with Dr. Zuniga in June this spring. (11) Insomnia: Cont melatonin Cont ambien She would benefit from a different sleep aid - trazodone, doxepin, etc are possibilities will d/w patient (12) Osteoporosis: (13) Prediabetes: most recent A1c 6.0. trend BSGs while here (14) GERD (gastroesophageal reflux disease): cont PPI twice daily (15) Cervical stenosis of spine: scheduled for epidural steroid injections in June. (16) Depression: resume cymbalta care d/w Eris RAMOS anticipate d/c in am Discharge Plan Discharge Items Patient Disposition: Home - Self-Care Reason For Visit: POST ERCP PANCREATITIS Discharge Diagnosis: 1. Post-ERCP pancreatitis - resolved 2. Hemobilia (blood/blood clots in the bile duct) - ERCP repeated, metal stent placed in the duct 3. Celiac disease 4. Abnormal liver function tests - due to #2 - resolving 5. Broken ribs x 2 on left from fall in late April Activity: Resume your previous activity Non-emergency contact: Primary Care Provider and Special Events Driver Call non-emergency contact if: you have any medication questions, your symptoms worsen, your pain is not controlled, your pain is worsening, your pain is unusual for you, your pain is concerning for you and you have a fever Follow-up/Referrals: Cris Campos DO [Primary Care Provider] - (1 week ) Isra Woodson DO [Physician] - (follow-up in ~6 weeks for retrieval of your bile duct stent; Dr Woodson's office will call you to arrange this) Diet: Gluten Free and Low Fat Addtl Attending Provider Instructions: Mrs Lechuga, Kaveh were hospitalized at [facility] for acute pancreatitis due to your outpatient ERCP procedure. This was treated with bowel rest, IV fluids, and pain medications. You were seen by Eris RAMOS, and because of rising liver function tests, we performed an MRI of your bile ducts/pancreas. This appeared to show debris or stones in your bile duct. Therefore, Dr Woodson took you back to the GI lab to perform another ERCP. Fortunately we did not find any additional gallstones or sludge in your bile duct; however, there were tiny blood clots in the bile duct. The duct was cleaned, and then a metal stent was placed. At some point following your initial outpatient ERCP you had some bleeding into the bile duct. Your liver function tests and lipase pancreas test all improved while here. Your abdominal pain resolved. We reintroduced a diet and this was advanced to a gluten-free, low-fat diet. At time of discharge your liver function tests are nearly normal. Recommendations - 1. antibiotics - amoxicillin-clavulanate 875mg twice daily x 7 days, first dose tonight 2. take probiotics daily x 10 days 3. stay on a low-fat diet for about 10 days; see handout that describes low-fat diet 4. NO anti-inflammatory pills x 5 days; this includes aspirin or aspirin- containing products, ibuprofen, motrin, alleve, naprosyn, goodie powders, BC powders, etc. If you have aches or pains tylenol is ok during this 5-day period. 5. gradually reintroduce your miralax for your bowels over the next week or two. Shoot for 1 soft BM daily or every other day. 6. for rib pain related to your broken ribs you can use [id number] "Salonpas" which work great for rib pain. Simply follow the instructions on the package on how to use the patches. The rib fractures typically take about 6 weeks to fully heal. Follow-up - see separate section Return to [facility] if - * you have fevers over 100 degrees * you have recurrent abdominal pains * you have severe nausea * your diarrhea worsens * any other concerns It was our pleasure to care for you at [facility]! Dr Sutton Pending Studies at Discharge: No Stand-Alone Forms: My [facility], Smoking Cessation Medications and DC Order Prescriptions: New amoxicillin-pot clavulanate 875-125 mg tablet 1 tab PO BID Qty: 14 RF: 0 Saccharomyces boulardii 250 mg capsule 250 mg PO DAILY 10 Days Qty: 10 RF: 0 Continued zoledronic laax-aismnbrs-imwiu 5 mg/100 mL piggyback See Rx Instructions mg IV .COMPLEX Qty: 100 RF: 0 pravastatin 20 mg tablet 20 mg PO HS Qty: 90 RF: 3 famotidine [Pepcid] 40 mg tablet 40 mg PO HS Qty: 90 RF: 1 cyanocobalamin (vitamin B-12) 2,500 mcg tablet 2,500 mcg PO DAILY Qty: 30 RF: 8 levothyroxine 88 mcg tablet 88 mcg PO DAILY Qty: 90 RF: 3 calcium carbonate 600 mg calcium (1,500 mg) tablet 600 mg PO BID RF: 0 multivitamin [Multiple Vitamins] tablet 1 tab PO QAM RF: 0 duloxetine 60 mg capsule,delayed release(DR/EC) 60 mg PO BID Qty: 180 RF: 2 promethazine 25 mg tablet 25 mg PO TID PRN (Reason: nausea and vomiting) Qty: 20 RF: 0 lorazepam [Ativan] 0.5 mg tablet 0.5 mg PO Q8H PRN (Reason: anxiety) Qty: 30 RF: 0 pantoprazole 40 mg tablet,delayed release (DR/EC) 40 mg PO BID RF: 0 Discharge Orders: Discharge Order (Routine); Ordered 06/12/21 Ordered By: Davie Mccoy/Other Patient Handouts: Understanding Pancreatitis, ED Diet, Low Fat Admission Data Admit Date/Time: 06/09/21 16:00 Attending Provider: Davie Sutton Admit Provider: Davie Sutton Primary Care Provider: Cris Campos Other Providers: Davie Sutton ; Jarvis Lewis Coding Diagnoses Hemobilia K83.8 Acute blood loss anemia D62 Post-ERCP acute pancreatitis K91.89; K85.90 Abnormal LFTs R79.89 Rib fracture S22.39XA Constipation K59.00 Celiac disease K90.0 Hyperlipidemia E78.5 Hypothyroidism E03.9 Idiopathic peripheral neuropathy G60.9 Insomnia G47.00 Osteoporosis M81.0 Prediabetes R73.03 GERD (gastroesophageal reflux disease) K21.9 Cervical stenosis of spine M48.02 Depression F32.A
== END 2021-06-12 14:52 | disposition home or self-care (01) | DRG 393 ==
LOC: ED 12:44 → 3W 16:00

== ENCOUNTER 2021-07-09 09:12 | Observation (INO) ==
--- NOTE | 2021-07-08 09:22 | Anesthesiology Consultation ---
Date of Service July 08, 2021 Assessment & Plan (1) Encounter for pre-operative examination: - COVID screening: Per assessment on 07/08: No known COVID-19 positive contacts or current COVID-19 related symptoms. Travel screen negative. Patient vaccinated. Preop Covid test done 07/07 ([facility]) was negative. - PCP office visit (06/23/21): "Abdominal pain, epigastric.. Ongoing since post ERCP on 06/09/2021.. reports better today, pain will wax and wane.. feel likely related to ongoing recovery from recent illness/stent placement.. agreed to rx PRN oxycodone for severe pain, she understands to only take on PRN basis, she will NOT combine with any other sedating substances or medications.. she will keep her scheduled f/u w/ GI, she will call their office w/ update on her current condition.. Acute pancreatitis.. Resolved. Secondary to post ERCP on 06/09/2021.. she is now s/p repeat ERCP on 06/10/21 w/ CBD stent placement.. her labs from ED were reviewed, noting normalized LFTs and Lipase level.. She w/ f/u w/ GI as scheduled for stent removal.. Hemobilia.. Noted post ERCP 06/09/21.. Repeat labs noting improvement LFTs, lipase and blood count" - Cardiology office visit (01/21/21): "The patient is stable from a cardiovascular standpoint. She demonstrates excellent control of her blood pressure. Her LDL cholesterol is borderline on her current dose of pravastatin. May consider increasing pravastatin depending on her next lipid panel. She was encouraged to resume her walking program. Fortunately, she had no evidence of coronary artery disease to the home cardiac catheterization in 2013." - S/P ERCP (06/10/21): Grade view 1, MAC#3, ETT 7.0 at [facility]. No issues noted per post-op anesthesia progress note. Chart Review Chart Review: Acceptable Risk for Surgery and Patient NOT seen in Pre Admission Testing History Surgery Operation Date: 07/09/21 10:55 Proposed Procedures p Endoscopic Retrograde Cholangiopancreato with Stent Removal - Isra Woodson DO Height/Weight Height: 5 ft 2 in Weight: 52.678 kg Allergies Allergy/AdvReac Type Severity Reaction Status Date / Time latex Allergy Intermediate Rash Verified 07/08/21 09:48 morphine Allergy Intermediate Rash, Verified 07/08/21 09:48 fever, nausea gluten Allergy Unknown Unknown Verified 07/08/21 09:48 Medications Home Medications Medication Instructions Recorded Confirmed Last Taken calcium carbonate 600 mg calcium 600 mg PO BID 11/20/20 07/08/21 06/17/21 08:00 (1,500 mg) tablet pravastatin 20 mg tablet 20 mg PO HS #90 tab 02/25/21 07/08/21 06/16/21 famotidine 40 mg tablet (Pepcid) 40 mg PO HS #90 tab 03/02/21 07/08/21 06/16/21 lorazepam 0.5 mg tablet (Ativan) 0.5 mg PO Q8H PRN #30 tab 05/21/21 07/08/21 Unknown duloxetine 60 mg capsule,delayed 60 mg PO BID #180 cap 05/22/21 07/08/21 08:00 release pantoprazole 40 mg tablet,delayed 40 mg PO BID 06/09/21 07/08/21 06/17/21 08:00 release ondansetron 8 mg disintegrating 8 mg PO Q8H PRN #20 tab 06/23/21 07/08/21 Unkn own tablet oxycodone 5 mg tablet 5 mg PO Q8H PRN #20 tab 06/23/21 07/08/21 Unknown cyanocobalamin (vitamin B-12) 2,500 mcg PO QAM 07/08/21 07/08/21 Unknown 2,500 mcg tablet levothyroxine 88 mcg tablet 88 mcg PO QAM 07/08/21 07/08/21 Unknown zoledronic acid 5 mg/100 mL in See Rx Instructions IV .COMPLEX 07/08/21 07/08/21 Unknown mannitol 5 %-water intravenous piggybck (Reclast) Past Medical History Medical History Atrophic vaginitis Mosqueda's esophagus Cervical facet joint syndrome Cervical stenosis of spine Chronic rhinitis Coronary heart disease Listed in records (? added in error- pt does have family hx of CAD listed) Normal coronary arteries per cardiac cath (2013) and no mention of coronary heart disease per cardiology office visit 01/21/21 Coronavirus infection 01/2020 Gastroparesis Irritable bowel syndrome with constipation Nausea with headaches daily. following with [facility] Pancreatitis post ERCP (06/09/21) Peripheral neuropathy Past Family History Family History Brother Lung cancer Brain tumor Mother Colorectal cancer Liver cancer Sister Diabetes Breast cancer FH: stomach cancer Father Myocardial infarction Brother Bladder cancer Denies family history of Ovarian cancer Prostate cancer Past Surgical History Surgical History H/O: hysterectomy NISH History of cardiac cath 2013 > "Normal coronary arteries" History of [place] fundoplication S/P appendectomy S/P cataract surgery unilateral S/P cholecystectomy S/P ERCP (06/09/21) d/t CBD stone --> pt woke up from initial ERCP in [place] shaking uncontrollably, stuttering. Dr Woodson sent patient to ER at [facility] where she then had the second ERCP with stent the following day without trouble. S/P ERCP (06/10/21) d/t post ERCP pancreatitis, noted sludge/blood in CBD, stent placed S/P eye surgery macular hole repair S/P foot surgery S/P rotator cuff surgery R shoulder x 2, 2006, 2008 Social History Smoking Status: Never smoker Hx Alcohol Use: No Hx Substance Use: No substance use type: does not use Lab Results Anesthesia Preop Results Results Anesthesia Widget: WBC 6.01 K/uL (4.8-10.8) 06/17/21 Hgb 11.9 g/dL (12.0-16.0) L 06/17/21 Hct 35.0 % (37-47) L 06/17/21 Plt 376 K/uL (130-400) 06/17/21 Na 138 mmol/L (136-145) 06/17/21 K 3.6 mmol/L (3.5-5.1) 06/17/21 Cl 105 mmol/L (98-107) 06/17/21 CO2 23 mmol/L (21-32) 06/17/21 BUN 11 mg/dl (6-23) 06/17/21 Creat 0.87 mg/dl (0.6-1.2) 06/17/21 Glucose Level 94 mg/dl (70-99(Fasting)) 06/17/21 POC Glucose 124 mg/dl (70-99) H 06/12/21 PT 10.4 Seconds (9.0-12.0) 06/17/21 INR 1.0 (0.9-1.1) 06/17/21 Testing Electrocardiogram Date: 06/17/21 NSR at 65 bpm. Possible LAE. *Poor data quality. Chest X-Ray Date: 06/17/21 FINDINGS: Minimally displaced fractures of the left ribs are again seen. No lines and tubes are seen. The cardiomediastinal silhouette is normal. The lungs are clear. No evidence of pleural effusion or pneumothorax. IMPRESSION: Partial visualization of minimally displaced fractures of the left ribs, otherwise no acute abnormality. Echocardiogram Date: 04/25/20 EF 50-55%. No RWMA. Trace to mild TI.
[~2021-07-09 09:12] MED LIST changes: -AMT/50 PO; -CALCTAB7 PO; +LACTATED RINGER'S 1,000 ML IV SCH; -LEVO112T2 PO; -LEVO150T9 PO; -LORA-741 PO; -MULT-513 PO; -PERP1TAB5 PO; -PRAV10TA39 PO; -PREMARIN CREAM; -ZOLP5TAB PO; -ZTA10 PO
[2021-07-09] MEDS ORDERED: PHENYLEPHRINE 100MCG/ML 5ML SYR IV PRN (09:35)
[2021-07-09] MEDS ORDERED: ATROPINE SULFATE 0.1 MG/ML 10ML SYR IV PRN (09:35)
[2021-07-09] MEDS ORDERED: LABETALOL HCL IV 5 MG/ML 20ML IV PRN (09:35)
[2021-07-09] MEDS ORDERED: ePHEDrine sulfate 50 MG/ML AMP IV PRN (09:35)
[2021-07-09] MEDS ORDERED: fentaNYL citrate 100 MCG/2 ML VIAL IV PRN (09:35)
[2021-07-09] MEDS ORDERED: ONDANSETRON INJ 2 MG/ML 2 ML VIAL IV PRN ×2 (09:35→14:54)
[2021-07-09] MEDS ORDERED: LIDOCAINE 2% 2 ML VIAL/AMP(20MG/ML) INFIL ONE (09:56)
[2021-07-09] MEDS ORDERED: PROPOFOL IV EMULSION 10 MG/ML 20 ML VIAL IV ONE (09:56)
[2021-07-09] MEDS ORDERED: ROCURONIUM BROMIDE 10 MG/ML 5 ML VIAL IV ONE (09:56)
[2021-07-09] MEDS ORDERED: ONDANSETRON INJ 2 MG/ML 2 ML VIAL ONE ×2 (09:56→11:58)
[2021-07-09] MEDS ORDERED: fentaNYL citrate 100 MCG/2 ML VIAL ONE (09:57)
[2021-07-09] MEDS ORDERED: INDOMETHACIN 50 MG SUPP PR ONE (10:41)
--- NOTE | 2021-07-09 10:46 | History & Physical Report ---
Date of Service July 09, 2021 Assessment & Plan (1) Choledocholithiasis: Plan: Patient with a history of choledocholithiasis and hemobilia presenting for biliary stent removal today. We have discussed the risks and benefits of ERCP and biliary stent removal to include bleeding, infection, perforation, pain and need for follow-up studies. History of Present Illness Chief Complaint: Biliary stent removal and nausea Primary Care Provider: Cris Campos DO The patient presents for biliary stent removal. She has a history of choledocholithiasis that was complicated by hemobilia thought to be related to an impacted gallstone. We placed a covered metal stent several weeks ago and initially patient was doing well. Over the past week the patient has noted increasing nausea thought to be related to the stent. She presents today for ERCP and biliary stent removal Allergies Allergy/AdvReac Type Severity Reaction Status Date / Time latex Allergy Intermediate Rash Verified 07/09/21 09:58 morphine Allergy Intermediate Rash, Verified 07/09/21 09:58 fever, nausea gluten Allergy Unknown Unknown Verified 07/09/21 09:58 Home Medications Medication Instructions Recorded Confirmed Type calcium carbonate 600 mg calcium 600 mg PO BID 11/20/20 07/09/21 History (1,500 mg) tablet pravastatin 20 mg tablet 20 mg PO HS #90 tab 02/25/21 07/09/21 Rx famotidine 40 mg tablet (Pepcid) 40 mg PO HS #90 tab 03/02/21 07/09/21 Rx lorazepam 0.5 mg tablet (Ativan) 0.5 mg PO Q8H PRN #30 tab 05/21/21 07/09/21 Rx duloxetine 60 mg capsule,delayed 60 mg PO BID #180 cap 05/22/21 07/09/21 Rx release pantoprazole 40 mg tablet,delayed 40 mg PO BID 06/09/21 07/09/21 History release ondansetron 8 mg disintegrating 8 mg PO Q8H PRN #20 tab 06/23/21 07/09/21 Rx tablet oxycodone 5 mg tablet 5 mg PO Q8H PRN #20 tab 06/23/21 07/09/21 Rx cyanocobalamin (vitamin B-12) 2,500 mcg PO QAM 07/08/21 07/09/21 History 2,500 mcg tablet levothyroxine 88 mcg tablet 88 mcg PO QAM 07/08/21 07/09/21 History zoledronic acid 5 mg/100 mL in See Rx Instructions IV .COMPLEX 07/08/21 07/09/21 History mannitol 5 %-water intravenous piggybck (Reclast) Past Med/Surg History Medical History Atrophic vaginitis Mosqueda's esophagus Cervical facet joint syndrome Cervical stenosis of spine Chronic rhinitis Coronary heart disease Listed in records (? added in error- pt does have family hx of CAD listed) Normal coronary arteries per cardiac cath (2013) and no mention of coronary heart disease per cardiology office visit 01/21/21 Coronavirus infection 01/2020 Gastroparesis Irritable bowel syndrome with constipation Nausea with headaches daily. following with [facility] Pancreatitis post ERCP (06/09/21) Peripheral neuropathy Surgical History H/O: hysterectomy NISH History of cardiac cath 2013 > "Normal coronary arteries" History of [place] fundoplication S/P appendectomy S/P cataract surgery unilateral S/P cholecystectomy S/P ERCP (06/09/21) d/t CBD stone --> pt woke up from initial ERCP in [place] shaking uncontrollably, stuttering. Dr Woodson sent patient to ER at [facility] where she then had the second ERCP with stent the following day without trouble. S/P ERCP (06/10/21) d/t post ERCP pancreatitis, noted sludge/blood in CBD, stent placed S/P eye surgery macular hole repair S/P foot surgery S/P rotator cuff surgery R shoulder x 2008 Family History Brother Lung cancer Brain tumor Mother Colorectal cancer Liver cancer Sister Diabetes Breast cancer FH: stomach cancer Father Myocardial infarction Brother Bladder cancer Denies family history of Ovarian cancer Prostate cancer Social History Smoking Status: Never smoker Second Hand Exposure: No; Do You Dip or Chew Tobacco: No; Tobacco Cessation Education Requested by Patient: No Hx Alcohol Use: No Hx Substance Use: No Preferred Language: Faroese Communication Ability: Effective Visual Impairment: No Limitations Hearing Ability: Normal Senior Hadoop Developer Required: No Beliefs That Will Affect Care: None marital status: Current Living Situation: Spouse current occupational status: retired Other Information That Helps Us Care for You: No Feels Safe at Home: Yes Safety Concerns: Feels Safe At This Time Childhood Exposure to Second-Hand Smoke: No caffeine: No during the past year weight has: remained stable Dental Care, Regularly: No Physical Activity Frequency: 5-6 Times per Week Seatbelt Use: always Sunscreen Use: Yes Assistive Devices: None Physical Exam Constitutional: WD/WN, vitals as above Neck: trachea midline, no thyromegaly Respiratory: normal respiratory effort, lungs clear to auscultation Cardiovascular: Heart Sounds: + murmur Gastrointestinal (Abdomen): Inspection/Auscultation: abdomen not distended Percussion/Palpation: abdomen soft Skin: no icterus Results & Data ([facility]) Vital Signs (Past 12 Hours) Vital Signs Temp Pulse Resp BP Pulse Ox 07/09/21 10:03 36.9 C 77 18 137/[address] abd pelvis IV con only CLINICAL HISTORY: abd pain, TECHNIQUE: Helical axial images of the abdomen and pelvis were obtained and displayed. Automated dose lowering techniques and/or adjustment according to patient size were utilized for this exam. This exam was performed with intravenous contrast. COMPARISON: Comparison is made to CT abdomen pelvis 09/20/2020 FINDINGS: Lower chest: There is a trace left pleural effusion with underlying atelectasis. Liver: Unremarkable. No focal lesions are seen. Gallbladder and biliary tree: Patient is status post cholecystectomy. A biliary stent is seen. Pneumobilia is seen. Pancreas: Unremarkable, no focal lesions. Spleen: Unremarkable. Adrenals: Unremarkable. Kidneys and ureters: Unremarkable. Bladder: Unremarkable. Reproductive organs: Patient is status post hysterectomy. Bowel: Unremarkable appearance of the bowel. The appendix is normal. A small hiatal hernia and postsurgical changes are seen in the stomach. Lymph nodes Retroperitoneal: Unremarkable. Mesenteric: Unremarkable. Pelvic: Unremarkable. Peritoneum: Normal. Vessels: Atherosclerotic calcifications are seen. Abdominal wall: A small fat-containing supra umbilical hernia is seen. Bones: Degenerative changes in the visualized spine. IMPRESSION: Pneumobilia status post placement of a biliary stent. No acute abnormalities are seen.
[2021-07-09] MEDS ORDERED: CIPROFLOXACIN / D5W 400 MG/200 ML BAG IV SCH (11:00)
[2021-07-09] MEDS ORDERED: DEXAMETHASONE SOD INJ 4 MG/ML VIAL ONE (11:39)
--- NOTE | 2021-07-09 12:10 | GI REPORT ---
Patient Name: Geeta Lechuga Procedure Date: 07/09/2021 10:53 AM Date of : 1950 Admit Type: Outpatient Age: 71 Gender: Female Attending MD: Isra Woodson DO Procedure: ERCP Providers: Isra Woodson DO Referring MD: Cris Campos Indications: Abdominal pain of suspected biliary origin, Stent removal Medicines: General Anesthesia Complications: No immediate complications. Estimated blood loss: Minimal. Estimated Blood Loss: Estimated blood loss was minimal. Procedure: Pre-Anesthesia Assessment: - Prior to the procedure, a History and Physical was performed, and patient medications, allergies and sensitivities were reviewed. The patient's tolerance of previous anesthesia was reviewed. - The risks and benefits of the procedure and the sedation options and risks were discussed with the patient. All questions were answered and informed consent was obtained. - Patient identification and proposed procedure were verified prior to the procedure by the physician, the nurse and the retail management keyholder. The procedure was verified in the procedure room. - Pre-procedure physical examination revealed no contraindications to sedation. - ASA Grade Assessment: III - A patient with severe systemic disease. - After reviewing the risks and benefits, the patient was deemed in satisfactory condition to undergo the procedure. - The anesthesia plan was to use general anesthesia. - Immediately prior to administration of medications, the patient was re-assessed for adequacy to receive sedatives. - The heart rate, respiratory rate, oxygen saturations, blood pressure, adequacy of pulmonary ventilation, and response to care were monitored throughout the procedure. - The physical status of the patient was re-assessed after the procedure. After obtaining informed consent, the scope was passed under direct vision. Throughout the procedure, the patient's blood pressure, pulse, and oxygen saturations were monitored continuously. The Duodenoscope was introduced through the mouth, and advanced to the duodenum and used to inject contrast into the bile duct. The ERCP was accomplished without difficulty. The patient tolerated the procedure well. Findings: A biliary stent was visible on the divinity teacher film. The esophagus was successfully intubated under direct vision without detailed examination of the pharynx, larynx, and associated structures, and upper GI tract. The upper GI tract was grossly normal. One biliary stent originating in the biliary tree was emerging from the major papilla. The stent was partially occluded. A biliary sphincterotomy had been performed. The sphincterotomy appeared open. One stent was removed from the biliary tree using a snare. The bile duct was deeply cannulated with the short-nosed traction sphincterotome and guidewire. Contrast was injected. I personally interpreted the bile duct images. Contrast extended to the hepatic ducts. A cholecystectomy had been performed. The main bile duct was diffusely dilated. The largest diameter was 15 mm. To discover objects, the biliary tree was swept with an 15 mm balloon and 18 mm balloon starting at the bifurcation. Sludge was swept from the duct. Two stones were removed. No stones remained. The endoscope was withdrawn from the patient. The total fluoroscopy exposure time was 1 minute and 15 seconds. Indomethacin 100 mg was given via suppository to decrease the risk of post-ERCP pancreatitis (PEP). Impression: - One partially occluded stent from the biliary tree was seen in the major papilla. - Prior biliary sphincterotomy appeared open. - The entire main bile duct was dilated. - The patient has had a cholecystectomy. - Choledocholithiasis was found. Complete removal was accomplished by balloon extraction. - One stent was removed from the biliary tree. - The biliary tree was swept. - Indomethacin given to decrease risk of post-ERCP pancreatitis. Recommendation: - Avoid aspirin and nonsteroidal anti-inflammatory medicines for 5 days. - Clear liquid diet today. - Cipro (ciprofloxacin) 500 mg PO BID for 3 days. - Return to GI clinic PRN. Isra Woodson D.O. Isra Woodson, 07/09/2021 12:10:18 PM This report has been signed electronically. Note Initiated On: 07/09/2021 10:53 AM Number of Addenda: 0 I attest to the content of the Intraoperative Record and orders documented therein, exceptions below {[id number]}
--- NOTE | 2021-07-09 12:12 | Post Operative Brief Note ---
Immediate Post Op Note v1 Date of Surgery July 09, 2021 Pre & Post Diagnosis Operation Date: 07/09/21 10:55 Pre-Op Diagnosis: Dilated CBD, Acquired Primary Post-Op Diagnosis: ercp with cbd stent removal I identified the patient and participated in the time-out.: Yes Procedure Operation Date: 07/09/21 10:55 Actual Procedures p Endoscopic Retrograde Cholangiopancreato - Isra Woodson DO Surgeon Isra Woodson DO Carpenter Form none Estimated Blood Loss 0 Findings Consistent with Post-Op Diagnosis
--- NOTE | 2021-07-09 12:25 | Anesthesiology Progress Note ---
Date of Service July 09, 2021 Anesthesia Post Procedure Vital Signs Vital Signs: Temp Pulse Resp BP Pulse Ox 07/09/21 12:20 85 16 123/69 98 07/09/21 12:13 36.1 C L 91 H 16 117/65 98 07/09/21 10:03 36.9 C 77 18 137/75 96 Pain Intensity Abdomen: Pain Intensity: 2 Transfer of Care Handoff Completed per policy Notes Mental Status: alert / awake / arousable Patient Amnestic to Procedure: Yes Nausea / Vomiting: adequately controlled Pain: adequately controlled Airway Patency, RR, SpO2: stable & adequate BP & HR: stable & adequate Hydration State: stable & adequate Anesthetic Complications: no major complications apparent and Pt Satisfied with anesthetic care
--- NOTE | 2021-07-09 12:36 | Fluoroscopy Report ---
[place] ERCP biliary ductal CLINICAL HISTORY: ERCP with stent removal COMPARISON STUDY: Abdomen and pelvis CT 06/17/2021. FLUOROSCOPY TIME: 1 minute and 15 seconds. FINDINGS: 14 fluoroscopic spot images of the right upper quadrant were submitted for review. Contrast was injected into the dilated common bile duct. A balloon sweep was performed. IMPRESSION: Fluoroscopic assistance provided for ERCP. ACT 112: Negative or not required by law. Electronically signed by: Kiko Kong M.D. 07/09/2021 12:35 PM
[2021-07-09] MEDS ORDERED: MIDAZOLAM HCL 1 MG/ML 2ML VIAL ONE (12:50)
[2021-07-09] MEDS ORDERED: MEPERIDINE HCL 25 MG/ML CARP/VIAL ONE (12:50)
--- NOTE | 2021-07-09 13:12 | Anesthesiology Progress Note ---
Date of Service July 09, 2021 Anesthesia Post Procedure Vital Signs Vital Signs: Temp Pulse Resp BP Pulse Ox 07/09/21 13:00 97.3 F L 73 16 119/67 99 07/09/21 12:50 94 H 16 126/67 99 07/09/21 12:40 98 H 16 131/64 95 07/09/21 12:30 97 H 16 115/68 95 07/09/21 12:20 85 16 123/69 98 07/09/21 12:13 97.0 F L 91 H 16 117/65 98 07/09/21 10:03 98.4 F 77 18 137/75 96 Pain Intensity Abdomen: Pain Intensity: 2 Transfer of Care Handoff Completed per policy Notes Mental Status: alert / awake / arousable and participated in evaluation Patient Amnestic to Procedure: Yes Nausea / Vomiting: adequately controlled Pain: adequately controlled Airway Patency, RR, SpO2: stable & adequate BP & HR: stable & adequate Hydration State: stable & adequate Anesthetic Complications: no major complications apparent and Pt Satisfied with anesthetic care
--- NOTE | 2021-07-09 13:50 | Communication Note ---
Date of Service: July 09, 2021 The patient underwent ERCP for biliary stent removal this afternoon with general anesthesia. The procedure lasted approximately 20 to 25 minutes and was perf ormed without difficulty. We did remove the biliary stent and several stones from her common bile duct. In the postoperative unit the patient was noted to have a rhythmic tremor and shakiness. This was initially treated with an additional dose of an Ativan by the anesthesia service. Fortunately the patient continues to have this type of symptom postoperatively. Of note the same symptoms occurred after her initial ERCP 3 weeks ago requiring an overnight hospitalization. I wonder if this may be related to the patient's underlying history of anxiety and long-term Ativan use. Recommendations We will consult the internal medicine service for overnight monitoring Patient may have clear liquids today Ciprofloxacin 400 mg twice daily
--- NOTE | 2021-07-09 14:15 | History & Physical Report ---
Date of Service July 09, 2021 Assessment & Plan (1) Post-operative complication: Plan: - Rhythmic tremor and shakiness s/p biliary stent removal, not responsive to Ativan dose. This was initially treated with an additional dose of an Ativan by the anesthesia service. The same symptoms occurred after her initial ERCP 3 weeks ago requiring an overnight hospitalization. At that time, she was diagnosed with ERCP induced pancreatitis, required - Will bring in to med/surg overnight for observation. - CT head, CBC, CMP ordered all largely unremarkable. - ? if this is related to underlying history of anxiety, long-term Ativan use that she is prescribed 0.5 mg every 8 hours as needed. - We will order routine MRI and every 4 neurochecks. If these are unrevealing and there are no acute events overnight, she will likely be able to be discharged tomorrow. (2) Encounter for removal of biliary stent: Plan: - Biliary stent and several stones removed from common bile duct. - Clear liquids today, advance as tolerated to celiac diet. - Cipro 400 mg twice daily per GI. (3) Mosqueda's esophagus: Plan: - Continue PPI, Pepcid, Zofran as needed. (4) Hypothyroidism: Plan: - Continue levothyroxine 88 mcg daily. (5) Anxiety: Plan: - Continue Cymbalta, Ativan 0.5 mg every 8 as needed. (6) Hyperlipidemia: Plan: - Continue pravastatin 20 mg daily. (7) Celiac disease: Plan: - Will be on clear liquids for the day, will order gluten-free diet when advanced. Plan: - Med/surg overnight for observation. - SCDs for DVT ppx. - Full Code. History of Present Illness Chief Complaint: post-anesthesia Primary Care Provider: Cris Campos DO Patient is a 71 y/o female with a PMH of GERD, Mosqueda's esophagus, celiac disease, IBS, hypothyroidism, hyperlipidemia, peripheral neuropathy, C-spine stenosis, and insomnia who presents today after ERCP for biliary stent removal this afternoon with general anesthesia. The procedure lasted approximately 20 to 25 minutes and was performed without difficulty. Biliary stent and several stones were removed from her common bile duct. In the postoperative unit the patient was noted to have a rhythmic tremor and shakiness. She describes the events to me as having a stutter, shaking all over, and feeling as though she was moving in slow motion. Denies dizziness, global or focal weakness, numbness, tingling, word finding difficulty, nausea, vomiting, headache, or visual changes. This was initially treated with an additional dose of an Ativan by the anesthesia service. Unfortunately the patient continues to have this type of symptom postoperatively. Of note the same symptoms occurred after her initial ERCP 3 weeks ago requiring an overnight hospitalization, however patient does not have good memory of last event so it is hard for her to compare these two. At that time, patient had no CVA or other neuro diagnoses to attribute her symptoms to, but was diagnosed with pancreatitis secondary to ERCP. Prior to today, she had been in her normal state of health--has chronic nausea, c spine stenosis causing some numbness to extremities, but no change in these symptoms. Vital signs stable and within normal limits, CBC and CMP unremarkable with exception of elevated glucose 136, AST 55. Head CT showed no intracranial abnormality. Hospital service was consulted to evaluate patient for overnight observation given her post ERCP neuro changes. Allergies Allergy/AdvReac Type Severity Reaction Status Date / Time latex Allergy Intermediate Rash Verified 07/09/21 09:58 morphine Allergy Intermediate Rash, Verified 07/09/21 09:58 fever, nausea gluten Allergy Unknown Unknown Verified 07/09/21 09:58 Home Medications Medication Instructions Recorded Confirmed Type calcium carbonate 600 mg calcium 600 mg PO BID 11/20/20 07/09/21 History (1,500 mg) tablet pravastatin 20 mg tablet 20 mg PO HS #90 tab 02/25/21 07/09/21 Rx famotidine 40 mg tablet (Pepcid) 40 mg PO HS #90 tab 03/02/21 07/09/21 Rx lorazepam 0.5 mg tablet (Ativan) 0.5 mg PO Q8H PRN #30 tab 05/21/21 07/09/21 Rx duloxetine 60 mg capsule,delayed 60 mg PO BID #180 cap 05/22/21 07/09/21 Rx release pantoprazole 40 mg tablet,delayed 40 mg PO BID 06/09/21 07/09/21 History release ondansetron 8 mg disintegrating 8 mg PO Q8H PRN #20 tab 06/23/21 07/09/21 Rx tablet oxycodone 5 mg tablet 5 mg PO Q8H PRN #20 tab 06/23/21 07/09/21 Rx cyanocobalamin (vitamin B-12) 2,500 mcg PO QAM 07/08/21 07/09/21 History 2,500 mcg tablet levothyroxine 88 mcg tablet 88 mcg PO QAM 07/08/21 07/09/21 History zoledronic acid 5 mg/100 mL in See Rx Instructions IV .COMPLEX 07/08/21 07/09/21 History mannitol 5 %-water intravenous piggybck (Reclast) ciprofloxacin HCl 500 mg tablet 500 mg PO BID #6 tab 07/09/21 Rx (Cipro) Past Med/Surg History Medical History Atrophic vaginitis Mosqueda's esophagus Cervical facet joint syndrome Cervical stenosis of spine Chronic rhinitis Coronary heart disease Listed in records (? added in error- pt does have family hx of CAD listed) Normal coronary arteries per cardiac cath (2013) and no mention of coronary heart disease per cardiology office visit 01/21/21 Coronavirus infection 01/2020 Gastroparesis Irritable bowel syndrome with constipation Nausea with headaches daily. following with [facility] Pancreatitis post ERCP (06/09/21) Peripheral neuropathy Surgical History H/O: hysterectomy NISH History of cardiac cath 2013 > "Normal coronary arteries" History of [place] fundoplication S/P appendectomy S/P cataract surgery unilateral S/P cholecystectomy S/P ERCP (06/09/21) d/t CBD stone --> pt woke up from initial ERCP in [place] shaking uncontrollably, stuttering. Dr Woodson sent patient to ER at [facility] where she then had the second ERCP with stent the following day without trouble. S/P ERCP (06/10/21) d/t post ERCP pancreatitis, noted sludge/blood in CBD, stent placed S/P eye surgery macular hole repair S/P foot surgery S/P rotator cuff surgery R shoulder x 2, 2006, 2008 Family History Brother Lung cancer Brain tumor Mother Colorectal cancer Liver cancer Sister Diabetes Breast cancer FH: stomach cancer Father Myocardial infarction Brother Bladder cancer Denies family history of Ovarian cancer Prostate cancer Social History Smoking Status: Never smoker Second Hand Exposure: No; Do You Dip or Chew Tobacco: No; Tobacco Cessation Education Requested by Patient: No Hx Alcohol Use: No Hx Substance Use: No Preferred Language: Bengali Communication Ability: Effective Visual Impairment: No Limitations Hearing Ability: Normal Shoe Stitcher Odd Required: No Beliefs That Will Affect Care: None marital status: Current Living Situation: Spouse current occupational status: retired Other Information That Helps Us Care for You: No Feels Safe at Home: Yes Safety Concerns: Feels Safe At This Time Childhood Exposure to Second-Hand Smoke: No caffeine: No during the past year weight has: remained stable Dental Care, Regularly: No Physical Activity Frequency: 5-6 Times per Week Seatbelt Use: always Sunscreen Use: Yes Assistive Devices: None Review of Systems Review of Systems: Constitutional: No fever/chills, weakness, fatigue, myalgias, anorexia, night sweats Eyes: No diplopia, no worsening or blurred vision ENT: normal hearing, no trouble swallowing Respiratory: No cough, sputum, dyspnea at rest or on exertion Cardiovascular: No chest pain, tightness or palpitations Abdomen: No pain, nausea, vomiting, diarrhea or constipation : Denies dysuria, hematuria, increased urgency/frequency, urinary retention Musculoskeletal: No joint pain, calf pain, swelling Neurologic: No weakness, numbness/tingling, or balance problems Psychiatric: No anxiety or depression Skin: No rash or itch Physical Exam Physical Exam: General: awake, alert, no apparent distress Head: Normocephalic, atraumatic ENT: PERRL, EOMI, no pharyngeal exudate, mucous membranes moist Chest: Clear to auscultation, on room air, no adventitious breath sounds Cardiac: Regular rate and rhythm, no murmur, no JVD, normal peripheral pulses, good capillary refill Abdominal: NABS x 4 quadrants, soft, nontender to palpation, no rebound, guarding or tenderness Extremities: Normal inspection, no peripheral edema or erythema, calfs nontender to palpation Psych: Normal mood and affect Neuro: AAO x 3, strength intact bilaterally and rated 5/5, no motor deficits, speech is clear, no peripheral sensory deficits Skin: no rash or erythema Results & Data Results & Data ([facility]) Vital Signs (Past 12 Hours) Vital Signs Temp Pulse Resp BP Pulse Ox 07/09/21 14:00 98 H 18 141/94 H 97 07/09/21 13:50 99 H 18 138/63 96 07/09/21 13:40 95 H 21 133/78 97 07/09/21 13:30 94 H 21 122/70 98 07/09/21 13:20 94 H 18 128/69 98 07/09/21 13:10 91 H 17 128/74 99 07/09/21 13:00 36.3 C L 73 16 119/67 99 07/09/21 12:50 94 H 16 126/67 99 07/09/21 12:40 98 H 16 131/64 95 07/09/21 12:30 97 H 16 115/68 95 07/09/21 12:20 85 16 123/69 98 07/09/21 12:13 36.1 C L 91 H 16 117/65 98 07/09/21 10:03 36.9 C 77 18 137/75 96 Laboratory Results Abnormal lab results 07/09/21 Range/Units 09:50 POC Glucose 112 H (70-99) mg/dl Diagnostic Findings Endo Retro Cholangiopancreatogram 07/09/21 00:00 [place] ERCP biliary ductal CLINICAL HISTORY: ERCP with stent removal COMPARISON STUDY: Abdomen and pelvis CT 06/17/2021. FLUOROSCOPY TIME: 1 minute and 15 seconds. FINDINGS: 14 fluoroscopic spot images of the right upper quadrant were submitted for review. Contrast was injected into the dilated common bile duct. A balloon sweep was performed. IMPRESSION: Fluoroscopic assistance provided for ERCP. ACT 112: Negative or not required by law. Electronically signed by: Kiko Kong M.D. 07/09/2021 12:35 PM ECG Additional Comments: Normal sinus rhythm Prolonged QT Abnormal ECG When compared with ECG of 17-JUN-2021 12:19, No significant change was found. Code Status & VTE Plan Code Status Full code. VTE Prophylaxis Plan VTE Prophylaxis will be ordered: Yes Supervising Physician Co-Signing Physician Notes I reviewed SHANNAN note, agree with her assessment. I discussed the case with Dr. Woodson as soon after procedure. Patient was here for elective removal of biliary stent placed from previous ERCP. After she woke up from procedure, she was stuttering and shaking. There is concern that she may have had a neurological event. SHANNAN does know the patient from previous admission in told me that she had a similar reaction postanesthesia. Work-up so far has been negative. I will check MRI to ensure no new supravascular event. Placed in observation overnight, likely discharge in the morning if patient resolved and work-up negative. PG Care Time/CCT Total # of Minutes Spent Total Time Spent with Patient: Total time spent is greater than 50% in coordination of care (as documented) at patient's floor/unit and/or counseling patient: Coding Level of Care Code INT OBSERVATION CARE 70M LVL 3 Diagnoses Encounter for removal of biliary stent Z46.89 Mosqueda's esophagus K22.70 Hypothyroidism E03.9 Anxiety F41.9 Hyperlipidemia E78.5 Celiac disease K90.0 Post-operative complication T81.9XXA
[2021-07-09] MEDS ORDERED: POLYETHYLENE (MIRALAX) 17 GM PACK PO PRN (14:54)
--- NOTE | 2021-07-09 15:07 | CT Scan Report ---
CT head/brain wo con CLINICAL HISTORY: 71 years-old Female with post-ercp with mental status changes. Acutely altered men cristian status TECHNIQUE: Multiple axial CT images of the head were obtained without contrast. A dose lowering tech nique was utilized adhering to the principles of ALARA. CT DOSE: 870.50 mGycm COMPARISON: Head CT 06/09/2021 FINDINGS: No acute intracranial hemorrhage, midline shift, intracranial mass, hydrocephalus, territorial ischem ia or abnormal extra-axial collection. Mild white matter hypodensities are redemonstrated suggestive of chronic microvascular ischemic disease. Cerebral vascular calcifications. The calvarium is intact. The mastoid air cells are clear. Minimal mucosal thickening of the paranasa l sinuses. Prior left-sided lens replacement. IMPRESSION: No acute intracranial abnormality. ACT 112: Negative or not required by law. The above report was generated using voice recognition software. It may contain grammatical, syntax o r spelling errors. Electronically signed by: Jd Lr M.D. 07/09/2021 3:04 PM
[2021-07-09 15:31] LABS: Basophils # (auto) 0.01 K/uL (0-0.2); Basophils % (auto) 0.1 %; Hematocrit (blood only) 35.7 % (37-47); Hemoglobin 11.9 g/dL (12.0-16.0); Immature Granulocytes # (auto) 0.02 K/uL (0.00-0.02); Immature Granulocytes % (auto) 0.3 %; Lymphocytes # (auto) 0.47 K/uL (1.2-3.4); Mean Corpuscular Hemoglobin 30.3 pg (25-34); Mean Corpuscular Volume 90.8 fL (80-100); Mean Platelet Volume 9.5 fL (7.4-10.4); Monocytes # (auto) 0.07 K/uL (0.11-0.59); Monocytes % (auto) 0.9 %; Neutrophils % (auto) 92.7 %; Platelet Count 302 K/uL (130-400); RDW Coefficient of Variation 13.5 % (11.5-14.5); RDW Standard Deviation 44.9 fL (36.4-46.3); Red Blood Count 3.93 M/uL (4.2-5.4); White Blood Count 7.87 K/uL (4.8-10.8)
[2021-07-09 15:52] LABS: Albumin Globulin Ratio 1.5 (0.9-2); Albumin Level 3.7 gm/dl (3.4-5.0); BUN Creatinine Ratio 21.8 (10-20); Bilirubin,Total 0.5 mg/dl (0.2-1.0); Calcium 8.8 mg/dl (8.5-10.1); Creatinine Clr Calc Pharmacy 49.2 ml/min; Globulin 2.5 gm/dl (2.5-4.0); Potassium 3.9 mmol/L (3.5-5.1); Total Protein 6.2 gm/dl (6.0-8.3)
[2021-07-09 16:13] LABS: Mean Corpuscular Hgb Conc 33.3 g/dL (32-36)
[2021-07-09] MEDS: LACTATED RINGER'S 1,000 ML IV SCH (17:14)
[2021-07-09] MEDS: CIPROFLOXACIN / D5W 400 MG/200 ML BAG IV SCH (17:45)
[2021-07-10] MEDS: CIPROFLOXACIN / D5W 400 MG/200 ML BAG IV SCH (03:24)
[2021-07-10] MEDS: LACTATED RINGER'S 1,000 ML IV SCH ×2 (05:17→07:16)
--- NOTE | 2021-07-10 08:14 | Magnetic Resonance Report ---
MRI OF THE BRAIN WITHOUT CONTRAST CLINICAL HISTORY: ray anderson s/p anesthesia COMPARISON STUDY: Head CT July 09, 2021. Head CT June 09, 2021. TECHNIQUE: Utilizing a 1.5 Karyn magnet and dedicated coil, multiplanar, multiecho imaging of the bra in was performed without IV contrast. FINDINGS: There are no foci of restricted diffusion to suggest acute infarct. No acute intracranial h emorrhage, midline shift or mass effect is present. Brain volume is normal. Ventricular system is unr emarkable. Basal cisterns are patent. There are no extra-axial collections. Flow-voids for the major intracranial vessels are present. No intracranial masses identified on this unenhanced examination. M ultiple white matter T2 hyperintense foci suggest small vessel disease. Calvarial signal is normal. IMPRESSION: No acute intracranial findings. ACT 112: Negative or not required by law. Electronically signed by: Ankush Hampton M.D. 07/10/2021 8:13 AM
--- NOTE | 2021-07-10 11:09 | Discharge Summary ---
Date of Service July 10, 2021 Admission HPI Per Admitting Provider Patient is a 71 y/o female with a PMH of GERD, Mosqueda's esophagus, celiac disease, IBS, hypothyroidism, hyperlipidemia, peripheral neuropathy, C-spine stenosis, and insomnia who presents today after ERCP for biliary stent removal this afternoon with general anesthesia. The procedure lasted approximately 20 to 25 minutes and was performed without difficulty. Biliary stent and several stones were removed from her common bile duct. In the postoperative unit the patient was noted to have a rhythmic tremor and shakiness. She describes the events to me as having a stutter, shaking all over, and feeling as though she wa s moving in slow motion. Denies dizziness, global or focal weakness, numbness, tingling, word finding difficulty, nausea, vomiting, headache, or visual changes. This was initially treated with an additional dose of an Ativan by the anesthesia service. Unfortunately the patient continues to have this type of symptom postoperatively. Of note the same symptoms occurred after her initial ERCP 3 weeks ago requiring an overnight hospitalization, however patient does not have good memory of last event so it is hard for her to compare these two. At that time, patient had no CVA or other neuro diagnoses to attribute her symptoms to, but was diagnosed with pancreatitis secondary to ERCP. Prior to today, she had been in her normal state of health--has chronic nausea, c spine stenosis causing some numbness to extremities, but no change in these symptoms. Vital signs stable and within normal limits, CBC and CMP unremarkable with exception of elevated glucose 136, AST 55. Head CT showed no intracranial abnormality. Hospital service was consulted to evaluate patient for overnight observation given her post ERCP neuro changes. Principal Diagnosis Post-procedural complication, shakiness and rhythmic tremor ?related to anxiety or Ativan Discharge Exam GENERAL: 71 yo well-developed, well-nourished WF. NAD. LUNGS: Clear to auscultation bilaterally. No W/R/R. CARDIOVASCULAR: Regular rate and rhythm. No M/G/R. No JVD. ABDOMEN: Soft, non-tender and non-distended. BS normal x 4 quad. EXTREMITIES: No edema. Non-tender. Peripheral pulses +2/4. NEUROLOGIC: A&O x3. CN II-XII intact. No gross neuro deficits. PSYCHIATRIC: Cooperative. Appropriate mood and affect. SKIN: Warm, dry, intact. No rashes or lesions. Discharge Data Allergies Allergy/AdvReac Type Severity Reaction Status Date / Time latex Allergy Intermediate Rash Verified 07/09/21 09:58 morphine Allergy Intermediate Rash, Verified 07/09/21 09:58 fever, nausea gluten Allergy Unknown Unknown Verified 07/09/21 09:58 Procedures Performed Operation Date: 07/09/21 10:55 Actual Procedures p Endoscopic Retrograde Cholangiopancreato - Isra Woodson DO Ordered Studies Endo Retro Cholangiopancreatogram 07/09/21 00:00 [place] ERCP biliary ductal CLINICAL HISTORY: ERCP with stent removal COMPARISON STUDY: Abdomen and pelvis CT 06/17/2021. FLUOROSCOPY TIME: 1 minute and 15 seconds. FINDINGS: 14 fluoroscopic spot images of the right upper quadrant were submitted for review. Contrast was injected into the dilated common bile duct. A balloon sweep was performed. IMPRESSION: Fluoroscopic assistance provided for ERCP. ACT 112: Negative or not required by law. Electronically signed by: Kiko Kong M.D. 07/09/2021 12:[address] 07/09/21 13:53 CT head/brain wo con CLINICAL HISTORY: 71 years-old Female with post-ercp with mental status changes. Acutely altered mental status TECHNIQUE: Multiple axial CT images of the head were obtained without contrast. A dose lowering technique was utilized adhering to the principles of ALARA. CT DOSE: 870.50 mGycm COMPARISON: Head CT 06/09/2021 FINDINGS: No acute intracranial hemorrhage, midline shift, intracranial mass, hydrocephalus, territorial ischemia or abnormal extra-axial collection. Mild white matter hypodensities are redemonstrated suggestive of chronic microvascular ischemic disease. Cerebral vascular calcifications. The calvarium is intact. The mastoid air cells are clear. Minimal mucosal thickening of the paranasal sinuses. Prior left-sided lens replacement. IMPRESSION: No acute intracranial abnormality. ACT 112: Negative or not required by law. The above report was generated using voice recognition software. It may contain grammatical, syntax or spelling errors. Electronically signed by: Jd Lr M.D. 07/09/2021 3:04 PM Brain MRI 07/09/21 15:39 MRI OF THE BRAIN WITHOUT CONTRAST CLINICAL HISTORY: ray anderson s/p anesthesia COMPARISON STUDY: Head CT July 09, 2021. Head CT June 09, 2021. TECHNIQUE: Utilizing a 1.5 Karyn magnet and dedicated coil, multiplanar, multiecho imaging of the brain was performed without IV contrast. FINDINGS: There are no foci of restricted diffusion to suggest acute infarct. No acute intracranial hemorrhage, midline shift or mass effect is present. Brain volume is normal. Ventricular system is unremarkable. Basal cisterns are patent. There are no extra-axial collections. Flow-voids for the major intracranial vessels are present. No intracranial masses identified on this unenhanced examination. Multiple white matter T2 hyperintense foci suggest small vessel disease. Calvarial signal is normal. IMPRESSION: No acute intracranial findings. ACT 112: Negative or not required by law. Electronically signed by: Ankush Hampton M.D. 07/10/2021 8:13 AM Hospital Course (1) Post-operative complication: - Rhythmic tremor and shakiness s/p biliary stent removal, not responsive to Ativan dose. This was initially treated with an additional dose of an Ativan by the anesthesia service. The same symptoms occurred after her initial ERCP 3 weeks ago requiring an overnight hospitalization. At that time, she was diagnosed with ERCP induced pancreatitis, required - Monitored on med/surg with tele overnight for observation. - CT head, CBC, CMP ordered all largely unremarkable. - ? if this is related to underlying history of anxiety, long-term Ativan use that she is prescribed 0.5 mg every 8 hours as needed. - MRI obtained with results above (no acute findings). Neuro checks performed q4h and were unremarkable. (2) Encounter for removal of biliary stent: - Biliary stent and several stones removed from common bile duct. - Clear liquids ordered and has been tolerating, may be advanced to regular gluten free diet per GI - Cipro 400 mg twice daily per GI x3 days, rx provided (3) Mosqueda's esophagus: - Continue PPI, Pepcid, Zofran as needed. (4) Hypothyroidism: - Continue levothyroxine 88 mcg daily. (5) Anxiety: - Continue Cymbalta, Ativan 0.5 mg every 8 as needed. (6) Hyperlipidemia: - Continue pravastatin 20 mg daily. (7) Celiac disease: - Diet can be advanced to gluten free reg At this time, pt is felt to be medically and hemodynamically stable for discharge. Case d/w Dr. Dhaliwal from GI. She will f/u in office as directed and f/u with her family doctor within 1 week. Above plan of care has been d/w Dr. Soares who has also seen and evaluated this patient prior to discharge. Total Time Total Time Spent Total Time Spent (In Minutes): >30 minutes Discharge Plan Discharge Items Patient Disposition: Home - Self-Care Reason For Visit: Dilated CBD, Acquired Primary Discharge Diagnosis: Biliary stent removed, removal of 2 common bile duct stones and sludge Activity: Resume your previous activity Non-emergency contact: Primary Care Provider and [employer] Needle [employer] Operator Call non-emergency contact if: your pain is worsening, your pain is concerning for you and your temperature is above 101 Follow-up/Referrals: Cris Campos DO [Primary Care Provider] - Diet: Regular Diet Comment: Gluten Free Addtl Attending Provider Instructions: IF YOU EXPERIENCE ANY OF THE FOLLOWING SYMPTOMS AFTER YOUR PROCEDURE CALL YOUR PRIMARY CARE PHYSICIAN IMMEDIATELY OR SEEK MEDICAL ATTENTION AT YOUR NEAREST EMERGENCY ROOM: 1. SEVERE abdominal pain or bloating 2. FEVER greater than 101.1 degrees within 24 hours after the procedure 3. LARGE AMOUNTS OF BLEEDING greater than 2-3 tablespoons. If you had a polyp/s removed or have hemorrhoids, a small amount of blood from the rectum is to be expected. 4. A localized irritation of the vein may occur at the site of the IV injection. Hot moist packs to the vein applied 4-6 times per day may reduce pain and irritation. A tender lump may develop and remain for several weeks to several months, but goes away eventually. If the area continues to be painful or becomes red and hot to the touch, please contact your primary care provider. For routine questions call [facility] at [phone]. * Avoid the use of alcohol and sedatives for 24 hours. * Clear liquid diet today, regular diet on 07/10/21 * Cipro 500 mg twice daily for 3 days. Pending Studies at Discharge: No Stand-Alone Forms: My [facility], Smoking Cessation Medications and DC Order Prescriptions: New ciprofloxacin HCl [Cipro] 500 mg tablet 500 mg PO BID Qty: 6 RF: 0 Continued pravastatin 20 mg tablet 20 mg PO HS Qty: 90 RF: 3 famotidine [Pepcid] 40 mg tablet 40 mg PO HS Qty: 90 RF: 1 calcium carbonate 600 mg calcium (1,500 mg) tablet 600 mg PO BID RF: 0 oxycodone 5 mg tablet 5 mg PO Q8H PRN (Reason: pain) Qty: 20 RF: 0 ondansetron 8 mg tablet,disintegrating 8 mg PO Q8H PRN (Reason: nausea and vomiting) Qty: 20 RF: 0 duloxetine 60 mg capsule,delayed release(DR/EC) 60 mg PO BID Qty: 180 RF: 2 lorazepam [Ativan] 0.5 mg tablet 0.5 mg PO Q8H PRN (Reason: anxiety) Qty: 30 RF: 0 pantoprazole 40 mg tablet,delayed release (DR/EC) 40 mg PO BID RF: 0 levothyroxine 88 mcg tablet 88 mcg PO QAM RF: 0 zoledronic [id number] [Reclast] 5 mg/100 mL piggyback See Rx Instructions mg IV .COMPLEX RF: 0 cyanocobalamin (vitamin B-12) 2,500 mcg tablet 2,500 mcg PO QAM RF: 0 Discharge Orders: Discharge Order (Routine); Ordered 07/10/21 Ordered By: Cassidy Petty Admission Data Admit Date/Time: 07/09/21 13:36 Attending Provider: Isra Woodson Admit Provider: Lauro Barnard Primary Care Provider: Cris Campos Other Interventions: Discharge Summary Assessment (RN) Last Done: 07/10/21 13:17 Supervising Physician Co-Signing Physician Notes I personally examined the patient and verified all tracy points of history and exam, discussed case, and agree with decision making with Mary Petty PAC feeling better eating OK wants to go home, vitals noted nad breathing unlabored no accessory muscles good effort - stable for home Coding Level of Care Code 73542 OBS Care - Discharge Diagnoses Post-operative complication T81.9XXA Encounter for removal of biliary stent Z46.89 Mosqueda's esophagus K22.70 Hypothyroidism E03.9 Anxiety F41.9 Hyperlipidemia E78.5 Celiac disease K90.0
--- NOTE | 2021-07-10 13:07 | Gastroenterology Progress Note ---
Date of Service July 10, 2021 Assessment & Plan Plan: Ms. Geeta Lechuga is a 71 yr old female w/ PMhx migraines, cervical spine stenosis, recent fall w rib fx, osteoporosis and pre-DM. She has had chronic nausea, for years. S/p [place] fundoplication, she is unable to vomit. She is post distant cholecystectomy. In the recent past, she had ERCP 06/09/21 and had gallstones removed. Upon awakening she developed muscle twitching and was referred to [facility] - she had abnormal MRCP/LFTs and had repeat ERCP 06/10 - showing patent biliary sphincterotomy but some evidence of filling defects which were found to be small blood clots, likely from hemobilia from bleeding after removal of her gallstones. A covered metal stent was placed and yesterday she underwent repeat ERCP for removal; a partially occluded stent and choledocholithiasis was seen and removed. Upon awakening she again had shaking/tremor (similar to prior episode) and was admitted to the hospital overnight for monitoring. Head CT and brain MRI were nonacute. CBC, CMP unremarkable. She's afebrile. This AM she tolerated clear liquids. Denies any GI complaints. No abd pain, jaundice, fever, chills. - No GI contraindication to discharge - Would continue Cipro 500 mg PO BID x 3 days - Continue PPI BID - Advance diet as tolerated - Avoid ASA and NSAIDs x 5 days - Return to GI clinic PRN Admission and Anticipated Discharge Date Admission Date: July 09, 2021 Subjective Patient seen and examined, chart reviewed. No acute events overnight. Pt denies shaking, tremor. Labs are stable. She tolerated her clear liquid diet today. No abd pain, n/v, melena, hematochezia, hematemesis, jaundice, fever, chills, CP, SOB. + passing flatus. Review of Systems Review of Systems: All systems reviewed & are unremarkable except as noted in HPI & below Physical Exam Constitutional: WD/WN, vitals as above Eyes: PERRL, conjunctivae normal, anicteric sclerae Respiratory: normal respiratory effort, lungs clear to auscultation Cardiovascular: RRR, no murmur, no edema Gastrointestinal (Abdomen): normal bowel sounds, soft, nontender, no hepatosplenomegaly Skin: no rashes, warm and dry Psychiatric: A+Ox3, euthymic affect Results & Data ([facility]) Vital Signs (Past 12 Hours) Vital Signs Temp Pulse Resp BP BP Pulse Ox 07/10/21 07:46 36.7 C 76 18 110/63 98 07/10/21 04:09 109/60 07/10/21 03:06 36.9 C 75 18 90/46 L 98 Laboratory Results 07/09/21 07/09/21 Range/Units 15:13 15:13 WBC 7.87 (4.8-10.8) K/uL RBC 3.93 L (4.2-5.4) M/uL Hgb 11.9 L (12.0-16.0) g/dL Hct 35.7 L (37-47) % MCV 90.8 (80-100) fL MCH 30.3 (25-34) pg MCHC 33.3 (32-36) g/dL RDW Std Deviation 44.9 (36.4-46.3) fL RDW Coeff of Geri 13.5 (11.5-14.5) % Plt Count 302 (130-400) K/uL MPV 9.5 (7.4-10.4) fL Immature Gran % (Auto) 0.3 % Neut % (Auto) 92.7 % Lymph % (Auto) 6.0 % [place] % (Auto) 0.9 % Eos % (Auto) 0.0 % Baso % (Auto) 0.1 % Neut # (Auto) 7.30 H (1.4-6.5) K/uL Lymph # (Auto) 0.47 L (1.2-3.4) K/uL [place] # (Auto) 0.07 L (0.11-0.59) K/uL Eos # (Auto) 0.00 (0-0.5) K/uL Baso # (Auto) 0.01 (0-0.2) K/uL Immature Gran # (Auto) 0.02 (0.00-0.02) K/uL Sodium 139 (136-145) mmol/L Potassium 3.9 (3.5-5.1) mmol/L Chloride 107 (98-107) mmol/L Carbon Dioxide 25 (21-32) mmol/L Anion Gap 7 (3-11) BUN 17 (6-23) mg/dl Creatinine 0.78 (0.6-1.2) mg/dl Est Cr Clr Drug Dosing 49.2 ml/min Est GFR ( Amer) 88.0 ml/min Est GFR (Non-Af Amer) 76.0 ml/min BUN/Creatinine Ratio 21.8 H (10-20) Glucose 136 H (70-99(Fasting)) mg/dl Calcium 8.8 (8.5-10.1) mg/dl Total Bilirubin 0.5 (0.2-1.0) mg/dl AST 55 H (13-39) U/L ALT 46 (7-52) U/L Alkaline Phosphatase 69 (34-104) U/L Total Protein 6.2 (6.0-8.3) gm/dl Albumin 3.7 (3.4-5.0) gm/dl Globulin 2.5 (2.5-4.0) gm/dl Albumin/Globulin Ratio 1.5 (0.9-2) Diagnostic Findings ERCP 07/09/21: Impression: - One partially occluded stent from the biliary tree was seen in the major papilla. - Prior biliary sphincterotomy appeared open. - The entire main bile duct was dilated. - The patient has had a cholecystectomy. - Choledocholithiasis was found. Complete removal was accomplished by balloon extraction. - One stent was removed from the biliary tree. - The biliary tree was swept. - Indomethacin given to decrease risk of post-ERCP pancreatitis. Recommendation: - Avoid aspirin and nonsteroidal anti-inflammatory medicines for 5 days. - Clear liquid diet today. - Cipro (ciprofloxacin) 500 mg PO BID for 3 days. - Return to GI clinic PRN.
--- NOTE | 2021-07-10 13:09 | Communication Note ---
Date of Service: July 10, 2021 By CMS guidelines, a determination that the admission or continued stay is not medically necessary has been made by a member of the UR committee and a physic meena for this hospital stay, therefore a Code 44 will be completed and the Inpatient admission will be changed to outpatient. Davie Sutton MD member, Utilization Review Committee
--- NOTE | 2021-07-10 19:34 | Electrocardiogram Report ---
Test Reason : Blood Pressure : / mmHG Vent. Rate : 080 BPM Atrial Rate : 080 BPM P-R Int : 174 ms QRS Dur : 082 ms QT Int : 416 ms P-R-T Axes : 069 032 067 degrees QTc Int : 480 ms Normal sinus rhythm Prolonged QT Abnormal ECG When compared with ECG of 17-JUN-2021 12:19, No significant change was found Confirmed by Memo Gonsalez ([id number]) on 07/10/2021 7:34:27 PM Referred By: Isra Woodson Confirmed By:Memo Gonsalez
== END 2021-07-10 13:48 | disposition home or self-care (01) ==
LOC: ASU 09:12 → PACUINP 13:36 → INTOOBSV 13:36 → 3W 16:02 → 2N 07-10 06:38
DX: K80.50 Calculus of bile duct without cholangitis or cholecystitis without obstruction; K22.70 Barrett's esophagus without dysplasia; Z88.5 Allergy status to narcotic agent; Z79.899 Other long term (current) drug therapy; F41.9 Anxiety disorder, unspecified; T85.590A Other mechanical complication of bile duct prosthesis, initial encounter; E78.5 Hyperlipidemia, unspecified; Z91.040 Latex allergy status; E03.9 Hypothyroidism, unspecified; K90.0 Celiac disease; Z88.6 Allergy status to analgesic agent; Z91.018 Allergy to other foods

== ENCOUNTER 2021-12-10 04:31 | Observation (INO) ==
[2021-12-10 04:59] LABS: Basophils # (auto) 0.04 K/uL (0-0.2); Basophils % (auto) 0.3 %; Eosinophils % (auto) 0.8 %; Hematocrit (blood only) 36.4 % (34.1-44.9); Hemoglobin 12.5 g/dl (12.0-16.0); Immature Granulocytes # (auto) 0.07 K/uL (0.00-0.02); Immature Granulocytes % (auto) 0.5 %; Lymphocytes % (auto) 15.8 %; Mean Corpuscular Hemoglobin 31.6 pg (25.0-34.0); Mean Corpuscular Hgb Conc 34.3 g/dL (32.0-36.0); Mean Corpuscular Volume 91.9 fL (80.0-100.0); Mean Platelet Volume 9.3 fL (9.4-12.3); Monocytes # (auto) 1.23 K/uL (0.24-0.82); Monocytes % (auto) 9.2 %; Neutrophils # (auto) 9.79 K/uL (1.4-6.5); Neutrophils % (auto) 73.4 %; Platelet Count 301 K/uL (130-400); RDW Coefficient of Variation 13.1 % (11.5-14.5); RDW Standard Deviation 44.1 fL (36.4-46.3); Red Blood Count 3.96 M/uL (3.93-5.22); White Blood Count 13.33 K/ul (4.8-10.8)
--- NOTE | 2021-12-10 05:04 | Emergency Department Note ---
History of Present Illness General Chief complaint: Chest Pain Time Seen by Provider: 12/10/21 04:37 History of Present Illness Maximum Pain Intensity: 7 71-year-old female states substernal chest pressure that radiated to her shoulders and down her left arm that started at 1 AM this evening at rest. Patient of note had a recent ablation of nerves in her neck last week. Patient was doing well with that she has had prior injections. Patient states at rest she had substernal chest pressure radiated to both shoulders and down the left arm. Patient denies shortness of breath denies nausea vomiting diaphoresis. Patient states the pain was moderate. EMS gave the patient 4 aspirin and 25 of fentanyl prior to arrival. Patient states that the pain is still persistent. There are no other mitigating or alleviating factors Home Medications Medication Instructions Recorded Confirmed Type calcium carbonate 600 mg calcium 600 mg PO BID 11/20/20 12/03/21 History (1,500 mg) tablet pravastatin 20 mg tablet 20 mg PO HS #90 tabs 02/25/21 12/03/21 Rx duloxetine 60 mg capsule,delayed 60 mg PO BID #180 caps 05/22/21 12/03/21 Rx release pantoprazole 40 mg tablet,delayed 40 mg PO BID 06/09/21 12/03/21 History release cyanocobalamin (vitamin B-12) 2,500 mcg PO QAM 07/08/21 12/03/21 History 2,500 mcg tablet zoledronic acid 5 mg/100 mL in See Rx Instructions IV .COMPLEX 07/08/21 12/03/21 History mannitol 5 %-water intravenous piggybck (Reclast) fluticasone propionate 50 1 spray intranasal DAILY #16 grams 08/21/21 12/03/21 Rx mcg/actuation nasal spray,suspension (Flonase Allergy Relief) ondansetron 8 mg disintegrating 8 mg PO Q8H PRN nausea and 08/21/21 12/03/21 Rx tablet vomiting #20 tabs triamcinolone acetonide 0.5 % 1 applic topical TID PRN skin 08/21/21 12/03/21 Rx topical cream irritation #15 grams famotidine 40 mg tablet (Pepcid) 40 mg PO HS #90 tabs 08/28/21 12/03/21 Rx conjugated estrogens 0.625 mg/gram 0.625 mg vaginal .COMPLEX 09/22/21 12/03/21 History vaginal cream (Premarin) levothyroxine 88 mcg tablet 88 mcg PO QAM #90 tabs 10/22/21 12/03/21 Rx lorazepam 0.5 mg tablet (Ativan) 0.5 mg PO Q8H PRN anxiety #30 tabs 12/01/21 12/03/21 Rx Allergies Allergy/AdvReac Type Severity Reaction Status Date / Time latex Allergy Intermediate Rash Verified 12/03/21 13:15 morphine Allergy Intermediate Rash, Verified 12/03/21 13:15 fever, nausea gluten Allergy Unknown Unknown Verified 12/03/21 13:15 nickel AdvReac Intermediate Blister Uncoded 12/03/21 13:15 Past Med/Surg History Medical History Atrophic vaginitis Mosqueda's esophagus Cervical facet joint syndrome Cervical stenosis of spine Chronic rhinitis Coronary heart disease Listed in records (? added in error- pt does have family hx of CAD listed) Normal coronary arteries per cardiac cath (2013) and no mention of coronary heart disease per cardiology office visit 01/21/21 Coronavirus infection 01/2020 Gastroparesis Irritable bowel syndrome with constipation Nausea with headaches daily. following with [facility] Pancreatitis post ERCP (06/09/21) Peripheral neuropathy Surgical History H/O: hysterectomy NISH History of cardiac cath 2013 > "Normal coronary arteries" History of [place] fundoplication S/P appendectomy S/P cataract surgery unilateral S/P cholecystectomy S/P ERCP (06/09/21) d/t CBD stone --> pt woke up from initial ERCP in [place] shaking uncontrollably, stuttering. Dr Woodson sent patient to ER at [facility] where she then had the second ERCP with stent the following day without trouble. S/P ERCP (06/10/21) d/t post ERCP pancreatitis, noted sludge/blood in CBD, stent placed S/P ERCP 07/09/21 Dr. Isra Woodson- ERCP- Balloon extraction of choledocholithiasis, Biliary tree swept of sludge S/P eye surgery macular hole repair S/P foot surgery S/P rotator cuff surgery R shoulder x 2, [id number] Family History Brother Lung cancer Brain tumor Mother Colorectal cancer Liver cancer Sister Diabetes Breast cancer FH: stomach cancer Father Myocardial infarction Brother Bladder cancer Denies family history of Ovarian cancer Prostate cancer Social History Smoking Status: Never smoker Second Hand Exposure: No; Hx Alcohol Use: No Hx Substance Use: No Preferred Language: [place] Communication Ability: Effective Visual Impairment: No Limitations Hearing Ability: Normal Beater Boss Required: No Beliefs That Will Affect Care: None marital status: Current Living Situation: Spouse current occupational status: retired Feels Safe at Home: Yes Childhood Exposure to Second-Hand Smoke: No caffeine: No during the past year weight has: remained stable Dental Care, Regularly: No Physical Activity Frequency: 5-6 Times per Week Seatbelt Use: always Sunscreen Use: Yes Assistive Devices: None Review of Systems A total of 10 systems reviewed and were otherwise negative Constitutional: no fever Ear, Nose, Mouth, Throat: no ear pain Cardiovascular: + chest pain and + radiating jaw, neck or arm pain; no syncope Gastrointestinal: + nausea Physical Exam Vital Signs Vital Signs - 24 hr 12/10/21 04:38 12/10/21 04:41 12/10/21 05:28 Temperature 36.5 C Temperature Source Oral Pulse Rate 83 Pulse Rate [Apical] 76 Respiratory Rate 24 20 Respiratory Effort / Characteristics Non-Labored Spontaneous Respiratory Depth Shallow Normal Blood Pressure 157/88 H Blood Pressure [Left Arm] 138/76 Blood Pressure Mean 111 Blood Pressure Mean [Left Arm] 96 Pulse Oximetry 96 99 92 Oxygen Delivery Method Room Air Room Air Room Air Sepsis Recent Fever Within 48 Hours No Sepsis New/Unexplained Change in Mental Status No Sepsis Action Taken by Nursing No Action Required GENERAL: Patient is awake alert in no acute distress patient is resting comfortably and showing no signs of anxiety EYES: The conjunctivae are clear. The pupils are round and reactive. EARS, NOSE, MOUTH AND THROAT: The nose is without any evidence of any deformity. Mucous membranes are moist. Tongue is midline. NECK: The neck is nontender and supple. RESPIRATORY: Normal respiratory effort is noted there is no evidence of wheezing rhonchi or rales CARDIOVASCULAR: Regular rate and rhythm noted there no murmurs rubs or gallops normal S1 normal S2. GASTROINTESTINAL: The abdomen is soft. Abdomen is nontender. PELVIS: The Pelvis is stable. No tenderness to palpation is noted. BACK: No midline tenderness or or step-off noted range of motion in flexion extension as well as rotation no signs of muscle spasm noted MUSCULOSKELETAL/EXTREMITIES: There is no evidence of gross deformity full range of motion is noted in the hips and shoulders. SKIN: There is no obvious evidence of any rash. There are no petechiae, pallor or cyanosis noted. NEUROLOGIC: Patient is awake alert and oriented x3 strength is symmetric Course Reevaluation(s) Reevaluation #1: Patient is resting in no distress on repeat examination was given a GI cocktail fentanyl x2 and aspirin; Time: 05:36 Consultations Consultation #1: Spoke with the [facility] for admission at [facility] Time: 05:55 Administered Medications Discontinued Medications Al Hydrox/Mg Hydrox/Simethicone (Gi Cocktail Ed Use) 1 dose PO ONE ONE Stop: 12/10/21 05:14 Last Admin: 12/10/21 05:18 Dose: 1 dose Documented By: AN Fentanyl Citrate (Fentanyl Citrate 100 Mcg/2 Ml Vial) 50 mcg IV NOW STA Stop: 12/10/21 05:14 Last Admin: 12/10/21 05:18 Dose: 50 mcg Documented By: AN Medical Decision Making Medical Records Attestation: I reviewed the patient's medical records. Home Medications Current Medication List: was personally reviewed by me Laboratory Data Attestation: I reviewed the patient's lab results. Result diagrams: 12/10/21 04:42 12/10/21 04:42 Lab Results 12/10/21 12/10/21 12/10/21 Range/Units 04:42 04:42 04:42 WBC 13.33 H (4.8-10.8) K/ul RBC 3.96 (3.93-5.22) M/uL Hgb 12.5 (12.0-16.0) g/dl Hct 36.4 (34.1-44.9) % MCV 91.9 (80.0-100.0) fL MCH 31.6 (25.0-34.0) pg MCHC 34.3 (32.0-36.0) g/dL RDW Std Deviation 44.1 (36.4-46.3) fL RDW Coeff of Geri 13.1 (11.5-14.5) % Plt Count 301 (130-400) K/uL MPV 9.3 L (9.4-12.3) fL Immature Gran % (Auto) 0.5 % Neut % (Auto) 73.4 % Lymph % (Auto) 15.8 % Clinch % (Auto) 9.2 % Eos % (Auto) 0.8 % Baso % (Auto) 0.3 % Neut # (Auto) 9.79 H (1.4-6.5) K/uL Lymph # (Auto) 2.10 (1.2-3.4) K/uL Clinch # (Auto) 1.23 H (0.24-0.82) K/uL Eos # (Auto) 0.10 (0-0.50) K/uL Baso # (Auto) 0.04 (0-0.2) K/uL Immature Gran # (Auto) 0.07 H (0.00-0.02) K/uL PT 9.5 (9.0-12.0) Seconds INR 0.9 (0.9-1.1) APTT 22.6 (21.0-31.0) Seconds PTT Ratio 0.8 Sodium 139 (136-145) mmol/L Potassium 3.8 (3.5-5.1) mmol/L Chloride 106 (98-107) mmol/L Carbon Dioxide 24 (21-32) mmol/L Anion Gap 9 (3-11) BUN 19 (6-23) mg/dl Creatinine 0.81 (0.6-1.2) mg/dl Est Cr Clr Drug Dosing 55.6 ml/min Est GFR ( Amer) 84.1 ml/min Est GFR (Non-Af Amer) 72.6 ml/min BUN/Creatinine Ratio 23.5 H (10-20) Glucose 92 (70-99(Fasting)) mg/dl Calcium 9.0 (8.5-10.1) mg/dl Total Bilirubin 0.3 (0.2-1.0) mg/dl AST 18 (13-39) U/L ALT 23 (7-52) U/L Alkaline Phosphatase 52 (34-104) U/L Troponin I High Sens 3.8 (0-14) pg/ml Total Protein 6.7 (6.0-8.3) gm/dl Albumin 4.0 (3.4-5.0) gm/dl Globulin 2.7 (2.5-4.0) gm/dl Albumin/Globulin Ratio 1.5 (0.9-2) Lipase 3 L (11-82) U/L SARS-CoV-2, RNA, NAAT (NEGATIVE) 12/10/21 Range/Units 04:52 WBC (4.8-10.8) K/ul RBC (3.93-5.22) M/uL Hgb (12.0-16.0) g/dl Hct (34.1-44.9) % MCV (80.0-100.0) fL MCH (25.0-34.0) pg MCHC (32.0-36.0) g/dL RDW Std Deviation (36.4-46.3) fL RDW Coeff of Geri (11.5-14.5) % Plt Count (130-400) K/uL MPV (9.4-12.3) fL Immature Gran % (Auto) % Neut % (Auto) % Lymph % (Auto) % Clinch % (Auto) % Eos % (Auto) % Baso % (Auto) % Neut # (Auto) (1.4-6.5) K/uL Lymph # (Auto) (1.2-3.4) K/uL Clinch # (Auto) (0.24-0.82) K/uL Eos # (Auto) (0-0.50) K/uL Baso # (Auto) (0-0.2) K/uL Immature Gran # (Auto) (0.00-0.02) K/uL PT (9.0-12.0) Seconds INR (0.9-1.1) APTT (21.0-31.0) Seconds PTT Ratio Sodium (136-145) mmol/L Potassium (3.5-5.1) mmol/L Chloride (98-107) mmol/L Carbon Dioxide (21-32) mmol/L Anion Gap (3-11) BUN (6-23) mg/dl Creatinine (0.6-1.2) mg/dl Est Cr Clr Drug Dosing ml/min Est GFR ( Amer) ml/min Est GFR (Non-Af Amer) ml/min BUN/Creatinine Ratio (10-20) Glucose (70-99(Fasting)) mg/dl Calcium (8.5-10.1) mg/dl Total Bilirubin (0.2-1.0) mg/dl AST (13-39) U/L ALT (7-52) U/L Alkaline Phosphatase (34-104) U/L Troponin I High Sens (0-14) pg/ml Total Protein (6.0-8.3) gm/dl Albumin (3.4-5.0) gm/dl Globulin (2.5-4.0) gm/dl Albumin/Globulin Ratio (0.9-2) Lipase (11-82) U/L SARS-CoV-2, RNA, NAAT NEGATIVE (NEGATIVE) Imaging Data Attestation: I personally reviewed and interpreted this imaging study as follows: My Impression: Chest x-ray interpreted by me normal mediastinum negative for infiltrate ECG Data Attestation: I personally reviewed and interpreted this ECG as follows: Additional Comments: EKG normal sinus rhythm rate of 73 poor R wave progression the precordium no obvious ST segment elevation or depression as interpreted by me MDM Narrative Medical Decision making differential diagnosis angina unstable angina acute coronary syndrome acute IL acute gastritis acute pancreatitis acute anxiety. Plan is to check labs, EKG, chest x-ray; patient received aspirin and fentanyl prior to arrival Patient was evaluated for chest pain that substernal in nature radiating to both shoulders and left arm. Patient's EKG is nonischemic first troponin 0 chest x- ray is negative was given a GI cocktail fentanyl and aspirin. Patient will be admitted for further evaluation of chest pain. I do not suspect the patient have a thoracic aortic dissection or pulmonary embolism at this time. Impression & Plan Chest pain Discharge Plan Visit Data Chief Complaint: Chest Pain ED Provider: Juan F Zavala Discharge Problem: Chest pain Patient Disposition: Being Evaluated by Hospitalist Forms Stand Alone Forms: My [facility] [place] Prescriptions Prescriptions: No Action pravastatin 20 mg tablet 20 mg PO HS Qty: 90 3RF famotidine [Pepcid] 40 mg tablet 40 mg PO HS Qty: 90 1RF levothyroxine 88 mcg tablet 88 mcg PO QAM Qty: 90 1RF lorazepam [Ativan] 0.5 mg tablet 0.5 mg PO Q8H PRN (Reason: anxiety) Qty: 30 0RF ondansetron 8 mg tablet,disintegrating 8 mg PO Q8H PRN (Reason: nausea and vomiting) Qty: 20 0RF triamcinolone acetonide 0.5 % cream 1 applic topical TID PRN (Reason: skin irritation) Qty: 15 0RF fluticasone propionate [Flonase Allergy Relief] 50 mcg/actuation spray,kirk spension 1 spray intranasal DAILY Qty: 16 2RF Rx Instructions: administer into each nostril calcium carbonate 600 mg calcium (1,500 mg) tablet 600 mg PO BID duloxetine 60 mg capsule,delayed release(DR/EC) 60 mg PO BID Qty: 180 2RF Premarin 0.625 mg/gram cream 0.625 mg vaginal .COMPLEX Rx Instructions: 0.625 mg vaginally 2-3 times per week; pantoprazole 40 mg tablet,delayed release (DR/EC) 40 mg PO BID zoledronic [id number] [Reclast] 5 mg/100 mL piggyback See Rx Instructions IV .COMPLEX Rx Instructions: IV INFUSE 5MG INTRAVENOUSLY OVER 15 MINUTES DIRECTED; cyanocobalamin (vitamin B-12) 2,500 mcg tablet 2,500 mcg PO QAM Referrals Referrals: Cris Campos DO [Primary Care Provider] -
[2021-12-10 05:12] LABS: INR 0.9 (0.9-1.1); Partial Thromboplastin Ratio 0.8; Partial Thromboplastin Time 22.6 Seconds (21.0-31.0); Prothrombin Time 9.5 Seconds (9.0-12.0)
[2021-12-10] MEDS ORDERED: GI COCKTAIL ED USE PO ONE (05:13)
[2021-12-10] MEDS ORDERED: fentaNYL citrate 100 MCG/2 ML VIAL IV STA (05:13)
[2021-12-10 05:31] LABS: Albumin Globulin Ratio 1.5 (0.9-2); BUN Creatinine Ratio 23.5 (10-20); Bilirubin,Total 0.3 mg/dl (0.2-1.0); Creatinine Clr Calc Pharmacy 55.6 ml/min; Est GFR (African American) 84.1 ml/min; Est GFR (Non-African American) 72.6 ml/min; Globulin 2.7 gm/dl (2.5-4.0); Potassium 3.8 mmol/L (3.5-5.1); Total Protein 6.7 gm/dl (6.0-8.3)
[2021-12-10 05:32] LABS: Troponin I High Sensitivity 3.8 pg/ml (0-14)
[2021-12-10] MEDS ORDERED: LORazepam 2 MG/2 ML SYR IV STA (06:20)
--- NOTE | 2021-12-10 06:36 | History & Physical Report ---
Date of Service December 10, 2021 Assessment & Plan (1) Chest pain radiating to jaw: Plan: Mid sternal chest pain radiating to bilateral neck, jaws and arms- The patient will be admitted to telemetry for serial cardiac enzymes, serial EKG's, cardiac rhythm monitoring and a 2-D echocardiogram with Dopplers. Family history of coronary artery disease Patient has had negative cardiac catheterization in 2013 Differential includes but is not limited to cardiac, GI, pulmonary, anxiety (2) Chest pain radiating to arm: Plan: See above (3) Gastroparesis: Plan: Gastroparesis/esophageal obstruction/Mosqueda's esophagus/history of [place] fundoplication- Will address cardiac issues first, however, esophageal spasm and symptoms related to these diagnoses are of significant consideration Continue pantoprazole 40 mg p.o. twice daily Hold oral famotidine [address] on famotidine 20 mg IV twice daily If cardiac work-up is negative, additional GI work-up may be indicated (4) Esophageal obstruction: Plan: See above Patient does not describe any obstruction symptoms at this time (5) Mosqueda's esophagus: Plan: See above (6) Cervical stenosis of spine: Plan: Patient is status post left-sided cervical spine injection by Dr. Cherry last week, but had different posterior left-sided neck symptoms postprocedure, that had for the most part resolved (7) Hyperlipidemia: Plan: Continue pravastatin 20 mg daily Check a fasting lipid panel (8) Anxiety: Plan: Continue lorazepam 0.5 mg p.o. every 8 hours as needed, duloxetine 60 mg p.o. twice daily Give lorazepam 0.5 mg IV x1 now (9) Hypothyroidism: Plan: Continue levothyroxine 88 mcg every morning History of Present Illness Chief Complaint: The patient presents to the emergency department with acute onset at 1:00 this morning of midsternal chest pain which radiated to her neck and jaws and bilateral arms Primary Care Provider: Cris Campos DO The patient is a 71-year-old female with a past medical history including cervical spinal stenosis, osteoporosis, celiac disease, hyperlipidemia, anxiety, hypothyroidism, esophageal obstruction, vitamin D deficiency, gastroparesis, atypical chest pain, family history of coronary artery disease, positive VINCENT, cervical facet joint syndrome, cervicogenic headache, irritable bowel syndrome with constipation, atrophic vaginitis, Mosqueda's esophagus, chronic rhinitis and coronary artery disease. Patient reports the development of symptoms as noted above, which she has not experienced before. She has recently undergone a cervical spine injection last week, but had different symptoms postinjection, radiating up the posterior left side of her neck. She denies any recent travels or sick exposures. She denies any change in physical activities which may have triggered the symptoms. She has had chronic nausea and headaches for 2 years, but reports no change in symptoms associated with her current chest discomfort symptoms. Allergies Allergy/AdvReac Type Severity Reaction Status Date / Time latex Allergy Intermediate Rash Verified 12/03/21 13:15 morphine Allergy Intermediate Rash, Verified 12/03/21 13:15 fever, nausea gluten Allergy Unknown Unknown Verified 12/03/21 13:15 nickel AdvReac Intermediate Blister Uncoded 12/03/21 13:15 Home Medications Medication Instructions Recorded Confirmed Type calcium carbonate 600 mg calcium 600 mg PO BID 11/20/20 12/03/21 History (1,500 mg) tablet pravastatin 20 mg tablet 20 mg PO HS #90 tabs 02/25/21 12/03/21 Rx duloxetine 60 mg capsule,delayed 60 mg PO BID #180 caps 05/22/21 12/03/21 Rx release pantoprazole 40 mg tablet,delayed 40 mg PO BID 06/09/21 12/03/21 History release cyanocobalamin (vitamin B-12) 2,500 mcg PO QAM 07/08/21 12/03/21 History 2,500 mcg tablet zoledronic acid 5 mg/100 mL in See Rx Instructions IV .COMPLEX 07/08/21 12/03/21 History mannitol 5 %-water intravenous piggybck (Reclast) fluticasone propionate 50 1 spray intranasal DAILY #16 grams 08/21/21 12/03/21 Rx mcg/actuation nasal spray,suspension (Flonase Allergy Relief) ondansetron 8 mg disintegrating 8 mg PO Q8H PRN nausea and 08/21/21 12/03/21 Rx tablet vomiting #20 tabs triamcinolone acetonide 0.5 % 1 applic topical TID PRN skin 08/21/21 12/03/21 Rx topical cream irritation #15 grams famotidine 40 mg tablet (Pepcid) 40 mg PO HS #90 tabs 08/28/21 12/03/21 Rx conjugated estrogens 0.625 mg/gram 0.625 mg vaginal .COMPLEX 09/22/21 12/03/21 History vaginal cream (Premarin) levothyroxine 88 mcg tablet 88 mcg PO QAM #90 tabs 10/22/21 12/03/21 Rx lorazepam 0.5 mg tablet (Ativan) 0.5 mg PO Q8H PRN anxiety #30 tabs 12/01/21 12/03/21 Rx Past Med/Surg History Medical History Atrophic vaginitis Mosqueda's esophagus Cervical facet joint syndrome Cervical stenosis of spine Chronic rhinitis Coronary heart disease Listed in records (? added in error- pt does have family hx of CAD listed) Normal coronary arteries per cardiac cath (2013) and no mention of coronary heart disease per cardiology office visit 01/21/21 Coronavirus infection 01/2020 Gastroparesis Irritable bowel syndrome with constipation Nausea with headaches daily. following with [facility] Pancreatitis post ERCP (06/09/21) Peripheral neuropathy Surgical History H/O: hysterectomy NISH History of cardiac cath 2013 > "Normal coronary arteries" History of [place] fundoplication S/P appendectomy S/P cataract surgery unilateral S/P cholecystectomy S/P ERCP (06/09/21) d/t CBD stone --> pt woke up from initial ERCP in [place] shaking uncontrollably, stuttering. Dr Woodson sent patient to ER at [facility] where she then had the second ERCP with stent the following day without trouble. S/P ERCP (06/10/21) d/t post ERCP pancreatitis, noted sludge/blood in CBD, stent placed S/P ERCP 07/09/21 Dr. Isra Woodson- ERCP- Balloon extraction of choledocholithiasis, Biliary tree swept of sludge S/P eye surgery macular hole repair S/P foot surgery S/P rotator cuff surgery R shoulder x 2, 2006, 2008 Family History Brother Lung cancer Brain tumor Mother Colorectal cancer Liver cancer Sister Diabetes Breast cancer FH: stomach cancer Father Myocardial infarction Brother Bladder cancer Denies family history of Ovarian cancer Prostate cancer Social History Smoking Status: Never smoker Second Hand Exposure: No; Hx Alcohol Use: No Hx Substance Use: No Preferred Language: Welsh Communication Ability: Effective Visual Impairment: No Limitations Hearing Ability: Normal Mis Manager Required: No Beliefs That Will Affect Care: None marital status: Current Living Situation: Spouse current occupational status: retired Feels Safe at Home: Yes Childhood Exposure to Second-Hand Smoke: No caffeine: No during the past year weight has: remained stable Dental Care, Regularly: No Physical Activity Frequency: 5-6 Times per Week Seatbelt Use: always Sunscreen Use: Yes Assistive Devices: None Review of Systems Review of Systems: The patient denies palpitations, shortness of breath, dyspnea on exertion, cough, lower extremity swelling, sore throat, fevers, chills, sweats, vomiting, diarrhea , constipation, abdominal pain, pelvic pain, blood in urine or stool, dysuria, urinary frequency or urgency, lightheadedness, dizziness, memory loss, loss of consciousness, rash, abnormal bruising or bleeding, imbalance, focal weakness, numbness or tingling in arms or legs, or night sweats. The review of systems is otherwise negative other than for that already noted above, and at least 10 systems have been reviewed. Physical Exam Physical Exam: The patient is awake, alert and oriented 3, well developed and well nourished, normocephalic and atraumatic, lying in bed and in no acute distress. HEENT--PERRL, EOMI, mucous membranes and oropharynx mildly dry. Neck--supple. No JVD. No bruits. Thyroid normal, trachea midline, no adenopathy. Heart--normal S1 and S2. No murmurs, rubs or gallops. Lungs--clear bilaterally, no respiratory distress, no accessory muscle use. Abdomen--normal bowel sounds and soft. Nontender. Nondistended, no hernias or masses, no organomegaly. Extremities--no cyanosis or clubbing. No edema. Dermatologic--normal skin turgor, normal color, no abnormal lymph nodes, no rash. Neurologic--cranial nerves II through XII grossly intact. Rheumatologic--normal range of motion. Psychiatric--normal affect. Results & Data Results & Data ([facility]) Vital Signs (Past 12 Hours) Vital Signs Temp Pulse Pulse Resp BP BP Pulse Ox 12/10/21 06:00 91 H 18 127/84 99 12/10/21 05:28 76 20 138/76 92 12/10/21 04:41 99 12/10/21 04:38 36.5 C 83 24 157/88 H 96 O2 Del Method 12/10/21 06:00 Room Air 12/10/21 05:28 Room Air 12/10/21 04:41 Room Air 12/10/21 04:38 Room Air Laboratory Results Laboratory Results WBC 13.33 K/ul (4.8-10.8) H 12/10/21 04:42 RBC 3.96 M/uL (3.93-5.22) 12/10/21 04:42 Hgb 12.5 g/dl (12.0-16.0) 12/10/21 04:42 Hct 36.4 % (34.1-44.9) 12/10/21 04:42 MCV 91.9 fL (80.0-100.0) 12/10/21 04:42 MCH 31.6 pg (25.0-34.0) 12/10/21 04:42 MCHC 34.3 g/dL (32.0-36.0) 12/10/21 04:42 RDW Std Deviation 44.1 fL (36.4-46.3) 12/10/21 04:42 RDW Coeff of Geri 13.1 % (11.5-14.5) 12/10/21 04:42 Plt Count 301 K/uL (130-400) 12/10/21 04:42 MPV 9.3 fL (9.4-12.3) L 12/10/21 04:42 Immature Gran % (Auto) 0.5 % 12/10/21 04:42 Neut % (Auto) 73.4 % 12/10/21 04:42 Lymph % (Auto) 15.8 % 12/10/21 04:42 Posey % (Auto) 9.2 % 12/10/21 04:42 Eos % (Auto) 0.8 % 12/10/21 04:42 Baso % (Auto) 0.3 % 12/10/21 04:42 Neut # (Auto) 9.79 K/uL (1.4-6.5) H 12/10/21 04:42 Lymph # (Auto) 2.10 K/uL (1.2-3.4) 12/10/21 04:42 Posey # (Auto) 1.23 K/uL (0.24-0.82) H 12/10/21 04:42 Eos # (Auto) 0.10 K/uL (0-0.50) 12/10/21 04:42 Baso # (Auto) 0.04 K/uL (0-0.2) 12/10/21 04:42 Immature Gran # (Auto) 0.07 K/uL (0.00-0.02) H 12/10/21 04:42 PT 9.5 Seconds (9.0-12.0) 12/10/21 04:42 INR 0.9 (0.9-1.1) 12/10/21 04:42 APTT 22.6 Seconds (21.0-31.0) 12/10/21 04:42 PTT Ratio 0.8 12/10/21 04:42 Sodium 139 mmol/L (136-145) 12/10/21 04:42 Potassium 3.8 mmol/L (3.5-5.1) 12/10/21 04:42 Chloride 106 mmol/L (98-107) 12/10/21 04:42 Carbon Dioxide 24 mmol/L (21-32) 12/10/21 04:42 Anion Gap 9 (3-11) 12/10/21 04:42 BUN 19 mg/dl (6-23) 12/10/21 04:42 Creatinine 0.81 mg/dl (0.6-1.2) 12/10/21 04:42 Est Cr Clr Drug Dosing 55.6 ml/min 12/10/21 04:42 Est GFR ( Amer) 84.1 ml/min 12/10/21 04:42 Est GFR (Non-Af Amer) 72.6 ml/min 12/10/21 04:42 BUN/Creatinine Ratio 23.5 (10-20) H 12/10/21 04:42 Glucose 92 mg/dl (70-99(Fasting)) 12/10/21 04:42 Calcium 9.0 mg/dl (8.5-10.1) 12/10/21 04:42 Total Bilirubin 0.3 mg/dl (0.2-1.0) 12/10/21 04:42 AST 18 U/L (13-39) 12/10/21 04:42 ALT 23 U/L (7-52) 12/10/21 04:42 Alkaline Phosphatase 52 U/L (34-104) 12/10/21 04:42 Troponin I High Sens 3.8 pg/ml (0-14) 12/10/21 04:42 Total Protein 6.7 gm/dl (6.0-8.3) 12/10/21 04:42 Albumin 4.0 gm/dl (3.4-5.0) 12/10/21 04:42 Globulin 2.7 gm/dl (2.5-4.0) 12/10/21 04:42 Albumin/Globulin Ratio 1.5 (0.9-2) 12/10/21 04:42 Lipase 3 U/L (11-82) L 12/10/21 04:42 SARS-CoV-2, RNA, NAAT NEGATIVE (NEGATIVE) 12/10/21 04:52 Code Status & VTE Plan Code Status Full code VTE Prophylaxis Plan VTE Prophylaxis will be ordered: Yes PG Care Time/CCT Total # of Minutes Spent Total Time Spent with Patient: Total time spent is greater than 50% in coordination of care (as documented) at patient's floor/unit and/or counseling patient: Coding Level of Care Code INT OBSERVATION CARE 70M LVL 3 Diagnoses Chest pain radiating to jaw R07.9 Chest pain radiating to arm R07.89 Gastroparesis K31.84 Esophageal obstruction K22.2 Mosqueda's esophagus K22.70 Cervical stenosis of spine M48.02 Hyperlipidemia E78.5 Anxiety F41.9 Hypothyroidism E03.9
--- NOTE | 2021-12-10 09:16 | XRay Report ---
XR chest 1V portable HISTORY: Atypical Chest Pain COMPARISON: Chest 06/17/2021. FINDINGS: No pneumothorax. No pleural effusions. The heart is top normal in size. The lungs are mildl y hyperexpanded with apical predominant emphysematous changes. There are healing/healed left-sided ri b fractures. No new focal lung consolidations to suggest a pneumonia. No evidence for pulmonary edema . IMPRESSION: No acute process. ACT 112: Negative or not required by law. Electronically signed by: Kiko Kong M.D. 12/10/2021 9:14 AM
[2021-12-10] MEDS ORDERED: NSS + 20MEQ KCL 20 MEQ/1,000 ML BAG IV SCH (09:50)
[2021-12-10] MEDS ORDERED: MAGNESIUM HYDROXIDE SUSP 30 ML UDC PO PRN (09:50)
[2021-12-10] MEDS ORDERED: ACETAMINOPHEN 325 MG TAB PO PRN (09:50)
[2021-12-10] MEDS ORDERED: ONDANSETRON INJ 2 MG/ML 2 ML VIAL IV PRN (09:50)
[2021-12-10] MEDS ORDERED: ALUMINUM/MAGNESIUM SUSP 30 ML UDC PO PRN (09:50)
[2021-12-10] MEDS ORDERED: LORazepam 0.5 MG TAB PO PRN (09:50)
[2021-12-10] MEDS ORDERED: ACETAMINOPHEN 325 MG TAB ONE (09:56)
[2021-12-10] MEDS ORDERED: INFLUENZA VACCINE HIGH DOSE PF 65+ 0.7 ML SYR IM ONE (10:02)
--- NOTE | 2021-12-10 10:09 | Hospitalist Progress Note ---
Date of Service December 10, 2021 Assessment & Plan (1) Chest pain radiating to jaw: Plan: Acute chest pain -Known strong family history of CAD, pt has had negative cardiac catheterization in 2014 -EKG without acute ST change, serial troponins negative -Sinus rhythm on monitor, hemodynamically stable -Echocardiogram unremarkable -Does not appear as though pt's chest pain is cardiac in nature based on negative workup, I suspect GI etiology to be primarily driving her pain- there is a palpable abdominal trigger point which may also be contributing to pain, can be treated with outpatient f/u -Will continue observation for now, anticipating discharge tomorrow pending stability (2) Chest pain radiating to arm: Plan: See above (3) Gastroparesis: Plan: Gastroparesis/esophageal obstruction/Mosqueda's esophagus/history of [place] fundoplication- -Will address cardiac issues first, however, esophageal spasm and symptoms related to these diagnoses are of significant consideration -Continue pantoprazole 40 mg p.o. twice daily -Famotidine 20 mg IV twice daily -Supportive care for now (4) Esophageal obstruction: Plan: See above Patient does not describe any obstruction symptoms at this time (5) Mosqueda's esophagus: Plan: See above (6) Cervical stenosis of spine: Plan: Patient is status post left-sided cervical spine injection by Dr. Cherry last week, but had different posterior left-sided neck symptoms postprocedure, that had for the most part resolved (7) Hyperlipidemia: Plan: Continue pravastatin 20 mg daily Lipid panel pending (8) Anxiety: Plan: Continue lorazepam 0.5 mg p.o. every 8 hours PRN, duloxetine 60 mg p.o. twice daily (9) Hypothyroidism: Plan: Continue levothyroxine 88 mcg every morning Admission and Anticipated Discharge Date Admission Date: December 10, 2021 Supervising Physician Co-Signing Physician Notes I personally examined the patient and verified all tracy points of history and exam, discussed case, and agree with decision making with Dr Chen. Relieved that her cardiac work-up looks good. Still has significant epigastric and chest pain and nausea. Would like improved symptom management. Vitals noted, in general she is awake and alert pleasant no distress. HEENT normocephalic atraumatic mucous membranes moist. Breathing unlabored no accessory muscle use good effort. Skin shows no rashes no pallor or icterus. Abdomen is soft nondistended she has mild epigastric tenderness but a very focal tender trigger point in her left upper abdominal wall. Skin shows no rashes no pallor or icterus. Chest pain/nauseaagree with cardiology and is likely of GI origin. She has multiple reasons for GI distressfor now trying to improve symptoms with Protonix twice daily, Pepcid twice daily, Tums twice daily, Carafate 4 times daily, Zofran as needed. Additionally, she has an abdominal wall trigger point that is likely a perpetuating factor for her nauseafor that we will start Voltaren gel 4 times daily, lidocaine patch nightly, and give trial to a trigger point injection tomorrow. Extensive discussion with patient and son in this respect. otherwise as above Subjective No acute events overnight. Pt still reporting chest pain- describes it as midsternal, aching with radiation to back of neck. She also reports considerable anxiety related to her pain. Den ies any dyspnea or other symptoms. Review of Systems Review of Systems: Per subjective Physical Exam Physical Exam: General: in moderate distress, anxious HEENT-- moist mucous membranes Neck--supple. No JVD. No bruits. Trachea midline, no adenopathy. Heart--normal S1 and S2. No murmurs, rubs or gallops. Lungs--clear bilaterally, no respiratory distress, no accessory muscle use. Abd: soft, nondistended, +diffusely tender, no guarding or rebound Extremities--no cyanosis or clubbing. No edema. MSK: tenderness to palpation of sternum Psychiatric--anxious affect Results & Data Results & Data ([facility]) Vital Signs (Past 12 Hours) Vital Signs Temp Pulse Pulse Resp BP BP Pulse Ox 12/10/21 09:11 12/10/21 09:07 91 H 18 133/86 95 12/10/21 08:17 97 H 18 141/74 H 96 12/10/21 07:30 98 H 18 135/70 97 12/10/21 07:02 98 H 18 139/74 96 12/10/21 06:37 92 H 18 146/71 H 96 12/10/21 06:00 91 H 18 127/84 99 12/10/21 05:28 76 20 138/76 92 12/10/21 04:41 99 12/10/21 04:38 36.5 C 83 24 157/88 H 96 O2 Del Method 12/10/21 09:11 Room Air 12/10/21 09:07 Room Air 12/10/21 08:17 Room Air 12/10/21 07:30 Room Air 12/10/21 07:02 Room Air 12/10/21 06:37 Room Air 12/10/21 06:00 Room Air 12/10/21 05:28 Room Air 12/10/21 04:41 Room Air 12/10/21 04:38 Room Air Resident Activity Tracking Resident Involvement: Resident Care Provided Care Provided: Adult Hospital Medicine
[2021-12-10] MEDS: PANTOprazole 40 MG TAB PO SCH ×2 (10:58→20:44)
[2021-12-10] MEDS: FAMOTIDINE 20 MG in SYRINGE 3 ML IV SCH ×2 (10:58→20:44)
[2021-12-10] MEDS: CYANOCOBALAMIN (B-12) 500 MCG TABLET PO SCH (11:08)
[2021-12-10] MEDS ORDERED: HYDROmorphone INJ 0.5 MG/0.5 ML SYR IV STA (11:08)
[2021-12-10] MEDS: LEVOTHYROXINE SODIUM 88 MCG TABLET PO SCH (11:09)
[2021-12-10] MEDS: CALCIUM CARBONATE 500 MG CHEWABLE TAB PO SCH ×2 (11:09→20:44)
[2021-12-10] MEDS: DULoxetine HCL 60 MG CAP PO SCH ×2 (11:09→20:44)
[2021-12-10] MEDS ORDERED: NITROGLYCERIN 2% OINTMENT 30GM TUBE EXT SCH (12:00)
--- NOTE | 2021-12-10 12:59 | XCELERA ---
[id number]
--- NOTE | 2021-12-10 15:06 | Cardiology Consultation ---
Date of Consultation December 10, 2021 Assessment & Plan (1) Atypical chest pain: (2) Hyperlipidemia: (3) Epigastric abdominal pain: Plan ASSESSMENT/PLAN: 1. Atypical chest pain: Her pain initiated in the epigastric area and radiated upward. She has negative high sensitivity troponin x3, despite ongoing chest discomfort since 1:00 a.m.. Chest pain is not consistent with ischemic heart disease. Given that her symptoms worsened with swallowing, her documented GI issues, and the fact that she is tender in the epigastric area, reproducing her pain, would consider further GI evaluation. Will defer to primary hospitalist team. 2. Dyslipidemia: Can continue statin therapy as an outpatient for risk factor modification. 3. Epigastric pain: Today symptoms initiated as epigastric pain and she is tender on exam in the epigastric area. Consider GI etiology for her symptoms as above. Defer to primary hospitalist service. 4. Disposition: She follows with Dr. Lewis in the outpatient setting. Please call on-call Cardiology for any further questions or concerns. Cardiology will otherwise sign off at this time. Patient care communicated with Dr. Luz for the primary hospitalist service. Today's visit was 43 minutes in duration, which includes [id number] time, counseling patient, coordinating care, reviewing records and reviewing studies as noted above. Thank you for allowing me to participate in the care of your patient. Please call for any other questions or concerns. Sincerely, Santos Gonsalez M.D. History of Present Illness Reason for Consultation: Chest pain Requesting Physician: Natty Chen Attending Physician: Sarmad Burrell MD History of Present Illness Mrs. Lechuga is a very pleasant 71-year-old female my history significant for Mosqueda's esophagus, dyslipidemia, possible gastroparesis, celiac disease and cervical spine stenosis. Her primary winder hand is Dr. Lewis. She was admitted on 12/10/2021 for chest pain. She underwent a cardiac catheterization in 2013 [place] and was told that she had no coronary artery disease at that time. This was done for chest heaviness. At 1:00 a.m. this morning, while in bed but already awake, she developed significant epigastric pain that radiated upward into her chest, neck, face, ears, and left arm. The pain in her neck worsens when she swallows. The pain has been constant since 1:00 a.m. although there was a transient our were the symptoms improved but did not completely resolved. She is nauseated but states she has had nausea for approximately 2 years. She describes the discomfort as a heaviness and pain. There is no associated shortness of breath or diaphoresis. Upon entering the room this afternoon, she states that she has noted recent improvement following Dilaudid. One week ago she underwent neck injection and states that she was told that it could be painful for days. She denies syncope, near-syncope, palpitations, edema, calf pain, vomiting, melena, hematochezia, or hematuria. Review of systems: As above. Review of systems otherwise negative/unremarkable. Family history: Father at 42 with DC. Social history: She denies tobacco, alcohol, or drug abuse. She lives at home with her . She has 1 son. She was unaccompanied in her hospital room. Allergies Allergy/AdvReac Type Severity Reaction Status Date / Time latex Allergy Intermediate Rash Verified 12/03/21 13:15 morphine Allergy Intermediate Rash, Verified 12/03/21 13:15 fever, nausea gluten Allergy Unknown Unknown Verified 12/03/21 13:15 nickel AdvReac Intermediate Blister Uncoded 12/03/21 13:15 Home Medications Medication Instructions Recorded Confirmed Type calcium carbonate 600 mg calcium 600 mg PO BID 11/20/20 12/03/21 History (1,500 mg) tablet pravastatin 20 mg tablet 20 mg PO HS #90 tabs 02/25/21 12/03/21 Rx duloxetine 60 mg capsule,delayed 60 mg PO BID #180 caps 05/22/21 12/03/21 Rx release pantoprazole 40 mg tablet,delayed 40 mg PO BID 06/09/21 12/03/21 History release cyanocobalamin (vitamin B-12) 2,500 mcg PO QAM 07/08/21 12/03/21 History 2,500 mcg tablet zoledronic acid 5 mg/100 mL in See Rx Instructions IV .COMPLEX 07/08/21 12/03/21 History mannitol 5 %-water intravenous piggybck (Reclast) fluticasone propionate 50 1 spray intranasal DAILY #16 grams 08/21/21 12/03/21 Rx mcg/actuation nasal spray,suspension (Flonase Allergy Relief) ondansetron 8 mg disintegrating 8 mg PO Q8H PRN nausea and 08/21/21 12/03/21 Rx tablet vomiting #20 tabs triamcinolone acetonide 0.5 % 1 applic topical TID PRN skin 08/21/21 12/03/21 Rx topical cream irritation #15 grams famotidine 40 mg tablet (Pepcid) 40 mg PO HS #90 tabs 08/28/21 12/03/21 Rx conjugated estrogens 0.625 mg/gram 0.625 mg vaginal .COMPLEX 09/22/21 12/03/21 H istory vaginal cream (Premarin) levothyroxine 88 mcg tablet 88 mcg PO QAM #90 tabs 10/22/21 12/03/21 Rx lorazepam 0.5 mg tablet (Ativan) 0.5 mg PO Q8H PRN anxiety #30 tabs 12/01/21 12/03/21 Rx Patient History Medical History Atrophic vaginitis Mosqueda's esophagus Cervical facet joint syndrome Cervical stenosis of spine Chronic rhinitis Coronavirus infection 01/2020 Gastroparesis Hyperlipidemia Irritable bowel syndrome with constipation Nausea with headaches daily. following with [facility] Pancreatitis post ERCP (06/09/21) Peripheral neuropathy Surgical History H/O: hysterectomy NISH History of cardiac cath 2013 > "Normal coronary arteries" History of [place] fundoplication S/P appendectomy S/P cataract surgery unilateral S/P cholecystectomy S/P ERCP (06/09/21) d/t CBD stone --> pt woke up from initial ERCP in [place] shaking uncontrollably, stuttering. Dr Woodson sent patient to ER at [facility] where she then had the second ERCP with stent the following day without trouble. S/P ERCP (06/10/21) d/t post ERCP pancreatitis, noted sludge/blood in CBD, stent placed S/P ERCP 07/09/21 Dr. Isra Woodson- ERCP- Balloon extraction of choledocholithiasis, Biliary tree swept of sludge S/P eye surgery macular hole repair S/P foot surgery S/P rotator cuff surgery R shoulder x 2, 2006, 2008 Family History Brother Lung cancer Brain tumor Mother Colorectal cancer Liver cancer Sister Diabetes Breast cancer FH: stomach cancer Father Myocardial infarction Brother Bladder cancer Denies family history of Ovarian cancer Prostate cancer Social History Smoking Status: Never smoker Second Hand Exposure: No; Hx Alcohol Use: No Hx Substance Use: No Preferred Language: [place]an Communication Ability: Effective Visual Impairment: No Limitations Hearing Ability: Normal [employer] Required: No Beliefs That Will Affect Care: None marital status: Current Living Situation: Spouse current occupational status: retired Feels Safe at Home: Yes Safety Concerns: Feels Safe At This Time Childhood Exposure to Second-Hand Smoke: No caffeine: No during the past year weight has: remained stable Dental Care, Regularly: No Physical Activity Frequency: 5-6 Times per Week Seatbelt Use: always Sunscreen Use: Yes Assistive Devices: None Physical Exam Physical Exam: Gen.: No acute distress. Alert and oriented. HEENT: Anicteric sclera. Neck: No JVD. No bruits. Normal carotid upstrokes bilaterally. Cardiac: PMI was nondisplaced. No ventricular heave. Regular. Normal S1-S2. No murmurs, rubs, or gallops. Pulmonary: Clear to auscultation bilaterally without wheezes, rales, or rhonchi. Abdomen: Quite tender to palpation in epigastric area, reproducing her pain described in HPI. Soft, nondistended, with normoactive bowel sounds. No bruits noted. Extremities: 2+ radial pulses bilaterally. 2+ posterior tibialis pulses bilaterally. No edema or cyanosis. Psychiatric: Affect appears appropriate. Results & Data ([facility]) Vital Signs (Past 12 Hours) Vital Signs Temp Pulse Pulse Resp BP BP Pulse Ox 12/10/21 09:50 12/10/21 11:44 36.6 C 71 18 124/67 97 12/10/21 12:13 89 12/10/21 09:50 12/10/21 09:11 12/10/21 09:07 91 H 18 133/86 95 12/10/21 08:17 97 H 18 141/74 H 96 12/10/21 07:30 98 H 18 135/70 97 12/10/21 07:02 98 H 18 139/74 96 12/10/21 06:37 92 H 18 146/71 H 96 12/10/21 06:00 91 H 18 127/84 99 12/10/21 05:28 76 20 138/76 92 12/10/21 04:41 99 12/10/21 04:38 36.5 C 83 24 157/88 H 96 Pulse Ox O2 Del Method O2 Del Method 12/10/21 09:50 97 Room Air 12/10/21 11:44 12/10/21 12:13 12/10/21 09:50 Room Air 12/10/21 09:11 Room Air 12/10/21 09:07 Room Air 12/10/21 08:17 Room Air 12/10/21 07:30 Room Air 12/10/21 07:02 Room Air 12/10/21 06:37 Room Air 12/10/21 06:00 Room Air 12/10/21 05:28 Room Air 12/10/21 04:41 Room Air 12/10/21 04:38 Room Air Laboratory Results Laboratory Results - last 24 hr 12/10/21 12/10/21 12/10/21 04:42 04:42 04:42 WBC 13.33 H RBC 3.96 Hgb 12.5 Hct 36.4 MCV 91.9 MCH 31.6 MCHC 34.3 RDW Std Deviation 44.1 RDW Coeff of Geri 13.1 Plt Count 301 MPV 9.3 L Immature Gran % (Auto) 0.5 Neut % (Auto) 73.4 Lymph % (Auto) 15.8 Rowan % (Auto) 9.2 Eos % (Auto) 0.8 Baso % (Auto) 0.3 Neut # (Auto) 9.79 H Lymph # (Auto) 2.10 Rowan # (Auto) 1.23 H Eos # (Auto) 0.10 Baso # (Auto) 0.04 Immature Gran # (Auto) 0.07 H PT 9.5 INR 0.9 APTT 22.6 PTT Ratio 0.8 Sodium 139 Potassium 3.8 Chloride 106 Carbon Dioxide 24 Anion Gap 9 BUN 19 Creatinine 0.81 Est Cr Clr Drug Dosing 55.6 Est GFR ( Amer) 84.1 Est GFR (Non-Af Amer) 72.6 BUN/Creatinine Ratio 23.5 H Glucose 92 Calcium 9.0 Total Bilirubin 0.3 AST 18 ALT 23 Alkaline Phosphatase 52 Troponin I High Sens 3.8 Total Protein 6.7 Albumin 4.0 Globulin 2.7 Albumin/Globulin Ratio 1.5 Lipase 3 L SARS-CoV-2, RNA, NAAT 12/10/21 12/10/21 12/10/21 04:52 08:20 14:44 WBC RBC Hgb Hct MCV MCH MCHC RDW Std Deviation RDW Coeff of Geri Plt Count MPV Immature Gran % (Auto) Neut % (Auto) Lymph % (Auto) Rowan % (Auto) Eos % (Auto) Baso % (Auto) Neut # (Auto) Lymph # (Auto) Rowan # (Auto) Eos # (Auto) Baso # (Auto) Immature Gran # (Auto) PT INR APTT PTT Ratio Sodium Potassium Chloride Carbon Dioxide Anion Gap BUN Creatinine Est Cr Clr Drug Dosing Est GFR ( Amer) Est GFR (Non-Af Amer) BUN/Creatinine Ratio Glucose Calcium Total Bilirubin AST ALT Alkaline Phosphatase Troponin I High Sens 3.0 2.8 Total Protein Albumin Globulin Albumin/Globulin Ratio Lipase SARS-CoV-2, RNA, NAAT NEGATIVE Diagnostic Findings ECG personally reviewed 12/10/2021 at 4:52 a.m.: Sinus rhythm 73 beats per minute. Possible septal infarct. Echo 12/10/2021: Normal LV size, wall motion, systolic function. EF 60 65%. Mild LVH. No significant valvular abnormalities. Normal RVSP. Chest x-ray 12/10/2021: No acute process per Radiology. Telemetry personally reviewed: Sinus rhythm. No arrhythmia. Medications Administered Current Inpatient Medications Acetaminophen (Acetaminophen 325 Mg Tab) 650 mg PO Q4H PRN PRN Reason: Pain or Fever Stop: 01/09/22 09:49 Al Hydrox/Mg Hydrox/Simethicone (Aluminum/Magnesium Susp 30 Ml Udc) 15 ml PO Q4H PRN PRN Reason: Dyspepsia Stop: 01/09/22 09:49 Calcium Carbonate (Calcium Carbonate 500 Mg Chewable Tab) 500 mg PO BID SHAYLA Stop: 01/09/22 09:49 Last Admin: 12/10/21 11:09 Dose: 500 mg Cyanocobalamin (Cyanocobalamin (B-12) 500 Mcg Tablet) 2,500 mcg PO QAM SHAYLA Stop: 01/09/22 10:14 Last Admin: 12/10/21 11:08 Dose: 2,500 mcg Diclofenac Sodium (Diclofenac Sod 1% Gel 100 Gm Tube) 2 gm EXT TID PRN; Protocol PRN Reason: abdominal trigger point pain Stop: 01/09/22 20:59 Duloxetine HCl (Duloxetine Hcl 60 Mg Cap) 60 mg PO BID SHAYLA Stop: 01/09/22 10:14 Last Admin: 12/10/21 11:09 Dose: 60 mg Famotidine 20 mg/ Syringe 5 mls @ 2.5 mls/min IV Q12 SHAYLA Stop: 01/09/22 09:49 Last Admin: 12/10/21 10:58 Dose: 2.5 mls/min Levothyroxine Sodium (Levothyroxine Sodium 88 Mcg Tablet) 88 mcg PO QAM [facility] Stop: 01/09/22 10:14 Last Admin: 12/10/21 11:09 Dose: 88 mcg Lidocaine (Lidocaine 5% 1 Patch) 1 patch TD QAM SHAYLA Stop: 01/09/22 20:59 Lorazepam (Lorazepam 0.5 Mg Tab) 0.5 mg PO Q8H PRN PRN Reason: anxiety Stop: 01/09/22 09:49 Magnesium Hydroxide (Magnesium Hydroxide Susp 30 Ml Udc) 30 ml PO Q12H PRN PRN Reason: Constipation Stop: 01/09/22 09:49 Mirtazapine (Mirtazapine Tab 15 Mg Tab) 15 mg PO HS [facility] Stop: 01/09/22 20:59 Miscellaneous (Remove Lidoderm Patch) 1 each N/A DAILY@2100 [facility] Stop: 01/09/22 20:59 Nitroglycerin (Nitroglycerin 2% Ointment 30gm Tube) 1 inch EXT Q6 [facility] Stop: 01/09/22 11:59 Last Admin: 12/10/21 11:44 Dose: 1 inch Ondansetron HCl (Ondansetron Inj 2 Mg/Ml 2 Ml Vial) 4 mg IV Q6H PRN PRN Reason: Nausea Stop: 01/09/22 09:49 Pantoprazole Sodium (Pantoprazole 40 Mg Tab) 40 mg PO BID [facility] Stop: 01/09/22 10:14 Last Admin: 12/10/21 10:58 Dose: 40 mg Pravastatin Sodium (Pravastatin Sod 20 Mg Tab) 20 mg PO HS [facility] Stop: 01/09/22 20:59 PG Care Time/CCT Total # of Minutes Spent Total Time Spent with Patient: Total time spent is greater than 50% in coordination of care (as documented) at patient's floor/unit and/or counseling patient: Coding Level of Care Code 09534 Initial Inpt Care Lvl 2 Diagnoses Atypical chest pain R07.89 Hyperlipidemia E78.5 Epigastric abdominal pain R10.13
[2021-12-10] MEDS ORDERED: DICLOFENAC SOD 1% GEL 100 GM TUBE EXT PRN (15:35)
--- NOTE | 2021-12-10 16:19 | Billing Data ---
Date of Service December 10, 2021 Coding Level of Care Code 90011 Subseq Hosp Care Lvl 3
[2021-12-10] MEDS: DICLOFENAC SOD 1% GEL 100 GM TUBE EXT SCH ×2 (17:17→20:46)
[2021-12-10] MEDS: SUCRALFATE 1 GM/10 ML UDC PO SCH ×2 (18:18→20:44)
[2021-12-10] MEDS ORDERED: MIRTAZAPINE TAB 15 MG TAB PO SCH (21:00)
[2021-12-10] MEDS ORDERED: LIDOCAINE 5% 1 PATCH TD SCH ×2 (21:00)
[2021-12-10] MEDS ORDERED: PRAVASTATIN SOD 20 MG TAB PO SCH (21:00)
--- NOTE | 2021-12-11 05:37 | Electrocardiogram Report ---
Test Reason : Blood Pressure : / mmHG Vent. Rate : 073 BPM Atrial Rate : 073 BPM P-R Int : 180 ms QRS Dur : 074 ms QT Int : 430 ms P-R-T Axes : 053 052 063 degrees QTc Int : 473 ms Normal sinus rhythm Septal infarct , age undetermined Abnormal ECG When compared with ECG of 09-JUL-2021 15:38, Septal infarct is now Present Confirmed by Memo Gonsalez ([id number]) on 12/11/2021 5:37:27 AM Referred By: REFERRED SELF Confirmed By:Memo Gonsalez
--- NOTE | 2021-12-11 05:52 | Electrocardiogram Report ---
Test Reason : Blood Pressure : / mmHG Vent. Rate : 098 BPM Atrial Rate : 098 BPM P-R Int : 182 ms QRS Dur : 076 ms QT Int : 362 ms P-R-T Axes : 064 044 064 degrees QTc Int : 462 ms Normal sinus rhythm Normal ECG When compared with ECG of 10-DEC-2021 04:52, Criteria for Septal infarct are no longer Present Confirmed by Memo Gonsalez ([id number]) on 12/11/2021 5:52:07 AM Referred By: REFERRED SELF Confirmed By:Memo Gonsalez
[2021-12-11] MEDS: SUCRALFATE 1 GM/10 ML UDC PO SCH ×2 (08:30→12:41)
[2021-12-11] MEDS: CALCIUM CARBONATE 500 MG CHEWABLE TAB PO SCH (08:30)
[2021-12-11] MEDS: CYANOCOBALAMIN (B-12) 500 MCG TABLET PO SCH (08:30)
[2021-12-11] MEDS: LEVOTHYROXINE SODIUM 88 MCG TABLET PO SCH (08:30)
[2021-12-11] MEDS: FAMOTIDINE 20 MG in SYRINGE 3 ML IV SCH (08:30)
[2021-12-11] MEDS: DULoxetine HCL 60 MG CAP PO SCH (08:30)
[2021-12-11] MEDS: PANTOprazole 40 MG TAB PO SCH (08:30)
[2021-12-11] MEDS: DICLOFENAC SOD 1% GEL 100 GM TUBE EXT SCH ×2 (08:31→12:41)
[2021-12-11] MEDS ORDERED: LIDOCAINE 2% 2 ML VIAL/AMP(20MG/ML) INFIL ONE (09:34)
--- NOTE | 2021-12-11 12:37 | Discharge Summary ---
Date of Service December 11, 2021 Admission HPI Per Admitting Provider The patient is a 71-year-old female with a past medical history including cervical spinal stenosis, osteoporosis, celiac disease, hyperlipidemia, anxiety, hypothyroidism, esophageal obstruction, vitamin D deficiency, gastroparesis, atypical chest pain, family history of coronary artery disease, positive VINCENT, cervical facet joint syndrome, cervicogenic headache, irritable bowel syndrome with constipation, atrophic vaginitis, Mosqueda's esophagus, chronic rhinitis and coronary artery disease. Patient reports the development of symptoms as noted above, which she has not experienced before. She has recently undergone a cervical spine injection last week, but had different symptoms postinjection, radiating up the posterior left side of her neck. She denies any recent travels or sick exposures. She denies any change in physical activities which may have triggered the symptoms. She has had chronic nausea and headaches for 2 years, but reports no change in symptoms associated with her current chest discomfort symptoms. Admission Exam Per Admitting Provider The patient is awake, alert and oriented 3, well developed and well nourished, normocephalic and atraumatic, lying in bed and in no acute distress. HEENT--PERRL, EOMI, mucous membranes and oropharynx mildly dry. Neck--supple. No JVD. No bruits. Thyroid normal, trachea midline, no adenopathy. Heart--normal S1 and S2. No murmurs, rubs or gallops. Lungs--clear bilaterally, no respiratory distress, no accessory muscle use. Abdomen--normal bowel sounds and soft. Nontender. Nondistended, no hernias or masses, no organomegaly. Extremities--no cyanosis or clubbing. No edema. Dermatologic--normal skin turgor, normal color, no abnormal lymph nodes, no rash. Neurologic--cranial nerves II through XII grossly intact. Rheumatologic--normal range of motion. Psychiatric--normal affect. Principal Diagnosis Esophageal irritation, abdominal wall trigger points Discharge Exam General: no acute distress HEENT-- moist mucous membranes Neck--supple. No JVD. No bruits. Trachea midline, no adenopathy. Heart--normal S1 and S2. No murmurs, rubs or gallops. Lungs--clear bilaterally, no respiratory distress, no accessory muscle use. Abd: soft, nondistended, +tender around 3 palpable trigger points, no guarding or rebound Extremities--no cyanosis or clubbing. No edema. MSK: tenderness to palpation of sternum Psychiatric--anxious affect Discharge Data Allergies Allergy/AdvReac Type Severity Reaction Status Date / Time latex Allergy Intermediate Rash Verified 12/03/21 13:15 morphine Allergy Intermediate Rash, Verified 12/03/21 13:15 fever, nausea gluten Allergy Unknown Unknown Verified 12/03/21 13:15 nickel AdvReac Intermediate Blister Uncoded 12/03/21 13:15 Consultations 12/10/21 05:57 ED Decision to Admit Stat 12/10/21 11:03 Consult Cardiology Routine Hospital Course (1) Chest pain radiating to jaw: Acute chest pain -Cardiac cause ruled out after negative workup and consultation- EKG without acute ST change, serial troponins negative, sinus rhythm on monitor, hemodynamically stable, echocardiogram unremarkable -Ultimately concluded pt's pain was likely of GI origin- possible esophageal irritation/spasm. Additionally, she had multiple abdominal wall trigger points which may be contributing to her persistent nausea and pain -Three trigger points of abdominal wall were treated with 2% lidocaine injection- risks/benefits discussed with pt, she tolerated procedure well and reported some relief of pain as a result of the intervention. F/u abdominal exam was benign. -Pt discharged with instructions to continue pantoprazole 40 mg BID, famotidine 20 mg BID, sucralfate 1g QID, Voltaren gel QID, and lidocaine patch nightly for relief of her GI-induced pain and trigger points. She was instructed to start weaning acid suppressive medications pending her symptom improvement and with PCP guidance -Discharged in stable condition on 12/11 (2) Chest pain radiating to arm: See above (3) Gastroparesis: Gastroparesis/esophageal obstruction/Mosqueda's esophagus/history of [place] fundoplication- -Will address cardiac issues first, however, esophageal spasm and symptoms relat ed to these diagnoses are of significant consideration. See above. (4) Esophageal obstruction: See above Patient does not describe any obstruction symptoms at this time (5) Mosqueda's esophagus: See above (6) Cervical stenosis of spine: Patient is status post left-sided cervical spine injection by Dr. Cherry last week, but had different posterior left-sided neck symptoms postprocedure, that had for the most part resolved (7) Hyperlipidemia: Continued pravastatin 20 mg daily (8) Anxiety: Continued lorazepam 0.5 mg p.o. every 8 hours PRN, duloxetine 60 mg p.o. twice daily (9) Hypothyroidism: Continued levothyroxine 88 mcg every morning Total Time Total Time Spent Total Time Spent (In Minutes): <30 Discharge Plan Discharge Items Patient Disposition: Home - Self-Care Reason For Visit: CHEST PAIN TO NECK AND ARMS Discharge Diagnosis: Esophageal spasm, abdominal trigger point pain Activity: Resume your previous activity Non-emergency contact: Primary Care Provider Call non-emergency contact if: you have any medication questions, your symptoms worsen and your pain is worsening Follow-up/Referrals: Cris Campos DO [Primary Care Provider] - 12/21/21 9:20 am Diet: Regular Addtl Attending Provider Instructions: You were admitted to the hospital for chest pain. Our workup revealed your heart was not the cause of the chest pain and it was more likely due to irritation of your esophagus as well as pain from trigger points in your belly. Trigger points are like knots of muscle which can be very easily irritated and cause pain. We treated your trigger points with some anesthetic to numb them and hopefully reduce the pain sensation. We also gave you acid suppressive medications in the hospital to reduce irritation to your esophagus. A discharge summary will be sent to your primary care physician to ensure continuity of care. Please bring this discharge summary with you to your next office appointment so that your provider can review it at that time. Follow-up appointments: Make a follow-up appointment with your PCP within the next week. It is very important that you follow up with them shortly after discharge from the hospital. Medications: Your medication list has been reviewed and reconciled upon discharge to ensure accuracy and continuity of care. An updated list of all your medications is included with your hospital discharge paperwork. Please review this list closely, and make note of any changes. We sent several medications to the pharmacy as described below. -Pantoprazole 40 mg twice a day -Famotidine 20 mg twice a day. I do see you take famotidine 40 mg at night, but I recommend at least for the next few weeks trying famotidine 20 mg twice a day instead and see if this helps your pain control more. For now, please avoid the usual 40 mg famotidine at night and instead take famotidine 20 mg in morning and evening. -Sucralfate 1 g (liquid) three times a day -Voltaren gel 2 g four times a day over the abdomen where your pain is In general we try not to have people on acid suppressive medications for very long because it can cause stomach issues later and even affect bone health. For now, take the pantoprazole, famotidine and sucralfate as directed. If you notice you aren't having much pain anymore in 1-2 weeks, then I recommend stopping the sucralfate first and then stopping the pantoprazole and finally the famotidine. Please ask Dr. Campos for her guidance in when to stop taking these medications. Take your medications as instructed; do not skip a dose of your medicines. Make sure all of your doctors know every medicine you are taking (including crfg-lpd-cdcqvmd medicines, vitamins, and supplements). Call your primary care provider before taking any new medicine s (including hbgt-dpo-tgewjxq medicines, vitamins, and supplements), because some of these may interact with your current medications, or may make your symptoms worse. Tell your primary care provider if you cannot afford your medications. CONTACT YOUR PRIMARY CARE PROVIDER if you experience any of the following: Nausea/vomiting Chest pain Lightheadedness Palpitations Abdominal pain Difficulty following your treatment plan, or difficulty taking medications CALL 911 OR GO TO THE EMERGENCY DEPARTMENT if you experience any of the following: Sudden, severe abdominal pain or nausea/vomiting Severe chest pain, or chest pain that radiates (moves) to your jaw or arm Sudden, severe shortness of breath or difficulty breathing Thank you for allowing us to participate in your care. Pending Studies at Discharge: No Stand-Alone Forms: My [facility] Medications and DC Order Prescriptions: New diclofenac sodium [Voltaren Arthritis Pain] 1 % Gel 2 g EXT QID Qty: 100 0RF pantoprazole 40 mg Tablet,Delayed Release (Dr/Ec) 40 mg PO BID 30 Days Qty: 60 0RF sucralfate 100 mg/mL Suspension 1 g PO QID Qty: 1000 0RF lidocaine 5 % Adhesive Patch,Medicated 1 patch transdermal HS Qty: 15 0RF famotidine 20 mg tablet 20 mg PO BID 30 Days Qty: 60 0RF Continued pravastatin 20 mg tablet 20 mg PO HS Qty: 90 3RF famotidine [Pepcid] 40 mg tablet 40 mg PO HS Qty: 90 1RF levothyroxine 88 mcg tablet 88 mcg PO QAM Qty: 90 1RF lorazepam [Ativan] 0.5 mg tablet 0.5 mg PO Q8H PRN (Reason: anxiety) Qty: 30 0RF ondansetron 8 mg tablet,disintegrating 8 mg PO Q8H PRN (Reason: nausea and vomiting) Qty: 20 0RF triamcinolone acetonide 0.5 % cream 1 applic topical TID PRN (Reason: skin irritation) Qty: 15 0RF fluticasone propionate [Flonase Allergy Relief] 50 mcg/actuation spray,suspension 1 spray intranasal DAILY Qty: 16 2RF Rx Instructions: administer into each nostril calcium carbonate 600 mg calcium (1,500 mg) tablet 600 mg PO BID duloxetine 60 mg capsule,delayed release(DR/EC) 60 mg PO BID Qty: 180 2RF Premarin 0.625 mg/gram cream 0.625 mg vaginal .COMPLEX Rx Instructions: 0.625 mg vaginally 2-3 times per week; pantoprazole 40 mg tablet,delayed release (DR/EC) 40 mg PO BID zoledronic [id number]-[id number]-meytd [Reclast] 5 mg/100 mL piggyback See Rx Instructions IV .COMPLEX Rx Instructions: IV INFUSE 5MG INTRAVENOUSLY OVER 15 MINUTES DIRECTED; cyanocobalamin (vitamin B-12) 2,500 mcg tablet 2,500 mcg PO QAM Discharge Orders: Discharge Order (Routine); Ordered 12/11/21 Ordered By: Natty Chen Admission Data Admit Date/Time: 12/10/21 06:22 Attending Provider: Russ Soares Admit Provider: Sarmad Burrell Primary Care Provider: Cris Campos Other Providers: Sarmad Burrell ; Memo Gonsalez Other Interventions: Discharge Summary Assessment (RN) Last Done: 12/11/21 12:34 Supervising Physician Co-Signing Physician Notes I personally examined the patient and verified all tracy points of history and exam, discussed case, and agree with decision making with Dr Cehn. Generally feeling better. Mildly pretrigger point injection, even better postfollowed up about 3 hours post injections. Feeling good enough to want to go home. Answered all questions the best my ability. See procedure note separately. Son present whenever I revisited in the afternoon. Chest pain/nausea-while she does have enough upper GI chronic pathology that GERD, and/or gastroparesis may be part of the picture, the discomfort from palpation of her abdominal wall trigger points, and the degree of relief immediately affected after injection suggest that at least a decent portion of her pain and nausea were actually somatic visceral reflex mediated due to upper abdominal wall trigger points. See procedure note separately. -Safe/stable for home -Aggressive acid suppression and Carafate (Mylanta if Carafate is needlessly costly) and slowly peel back treatment as her symptoms improve -Abdominal wall trigger point injections as per separate procedure note, can repeat in the office if needed, Voltaren gel 4 times daily for the foreseeable futureat least until things have improved -Discussed with patient that after injections things do sometimes get worse before betterand in either direction (worse, better, or worse followed by better) following her symptom pattern over the next few days will help her be able to start to tease apart how much of her symptoms may be trigger point related, versus how much is her more "organic" upper GI pathology -Consider Remeron as an outpatienttrial dose went reasonably well here in the hospital, refrained from sending her with that as well, simply because of so many other changes at once otherwise as above Resident Activity Tracking Resident Involvement: Resident Care Provided Care Provided: Adult Hospital Medicine
--- NOTE | 2021-12-11 17:01 | Billing Data ---
Date of Service December 11, 2021 Coding Level of Care Code 01854 OBS Care - Discharge Comment disregard <30mins dc - is observation, thanks!
--- NOTE | 2021-12-11 17:01 | Billing Data ---
Date of Service December 11, 2021 Coding Level of Care Code D/C DAY MANAGEMENT <30 MINS
--- NOTE | 2021-12-11 17:06 | Hospitalist Progress Note ---
Date of Service December 11, 2021 Assessment & Plan (1) Trigger point of abdomen: Plan: Informed consent obtained, reiterated discussions from yesterday, and then specifically discussed risk/benefit of doing trigger point injectionsbenefit being possible improvement in her epigastric pain and nausea, risk of being small but potentially infection or perforation, as well as the discomfort of the procedure and possible postprocedure bruising, as well as a reasonable likelihood of feeling worse before feeling better for a few days. Patient consented. Of note, I was unable to find a truly "generic" consent form, the closest being 1 for radiologic procedures such as a venogramdiscussed with patient openly that the form was not exactly what I wanted, and crossed out sections to match what we discussed. She expressed a good understanding of this and had no hesitation about signing after we discussed risk/benefit. Upper abdominal wall cleansed with alcohol swabs and then Betadine, 2% lidocaine without epi drawn up into a syringe, Dr. Chen under my direct supervision injected 3 upper abdominal wall trigger point successfully, feeling granularity with the needle confirming placement, and patient noting a different sensation in her abdomen as he hit the trigger points. 1 cc of lidocaine injected above each trigger point after dry needling. Patient tolerated well, area cleaned again and dressed. Reassessed several hours later. Abdomen soft nondistended nontender no masses organomegaly no guarding or rebound and she was feeling better. 3 abdominal wall trigger pointsinjected each with 1 cc of lidocaine by Dr. Chen under my direct supervision. Admission and Anticipated Discharge Date Admission Date: December 10, 2021 Results & Data Results & Data ([facility]) Vital Signs (Past 12 Hours) Vital Signs Temp Pulse Pulse Resp BP Pulse Ox O2 Del Method 12/11/21 12:34 98.4 F 86 18 104/63 95 12/11/21 11:16 98.4 F 86 18 104/63 95 Room Air 12/11/21 07:48 98.6 F 89 19 124/80 97 Room Air 12/11/21 07:46 74 PG Care Time/CCT Total # of Minutes Spent Total Time Spent with Patient: Total time spent is greater than 50% in coordination of care (as documented) at patient's floor/unit and/or counseling patient: Coding Level of Care Code None Diagnoses Trigger point of abdomen R10.9 Comment trigger point injection x3
--- NOTE | 2021-12-12 10:54 | Electrocardiogram Report ---
Test Reason : Blood Pressure : / mmHG Vent. Rate : 080 BPM Atrial Rate : 080 BPM P-R Int : 176 ms QRS Dur : 082 ms QT Int : 396 ms P-R-T Axes : 064 025 062 degrees QTc Int : 456 ms Normal sinus rhythm Normal ECG When compared with ECG of 10-DEC-2021 08:45, No significant change was found Confirmed by Jeff Sin ([id number]) on 12/12/2021 10:54:02 AM Referred By: REFERRED SELF Confirmed By:Jeff Sin
== END 2021-12-11 17:37 | disposition home or self-care (01) ==
LOC: ED 04:31 → 2S 06:22 → SUATTDRO 06:22 → INTOOBSV 06:22 → 2S 09:11
DX: Z91.040 Latex allergy status; Z79.899 Other long term (current) drug therapy; K22.2 Esophageal obstruction; E03.9 Hypothyroidism, unspecified; Z88.5 Allergy status to narcotic agent; M48.02 Spinal stenosis, cervical region; K22.70 Barrett's esophagus without dysplasia; R07.9 Chest pain, unspecified; E78.5 Hyperlipidemia, unspecified; K31.84 Gastroparesis

== ENCOUNTER 2022-06-22 05:31 | Observation (INO) ==
--- NOTE | 2022-06-03 13:20 | PAT Medication Instructions ---
Medication Instructions Date of Service June 03, 2022 Home Medications Medication Instructions Recorded ondansetron 8 mg disintegrating 8 mg PO Q8H PRN nausea and 08/21/21 tablet vomiting #20 tabs triamcinolone acetonide 0.5 % 1 applic topical TID PRN skin 08/21/21 topical cream irritation #15 grams lorazepam 0.5 mg tablet (Ativan) 0.5 mg PO Q8H PRN anxiety #30 tabs 12/01/21 mirtazapine 15 mg tablet (Remeron) 15 mg PO HS #30 tabs 12/21/21 zoledronic acid 5 mg/100 mL in 5 mg IV UD #100 mL 01/11/22 mannitol 5 %-water intravenous piggybck (Reclast) duloxetine 60 mg capsule,delayed 60 mg PO BID #180 caps 02/05/22 release famotidine 40 mg tablet (Pepcid) 40 mg PO HS #90 tabs 02/05/22 pravastatin 20 mg tablet 20 mg PO HS #90 tabs 02/08/22 pantoprazole 40 mg tablet,delayed See Rx Instructions .Route 03/15/22 release .COMPLEX #180 tabs levothyroxine 88 mcg tablet 88 mcg PO QAM #90 tabs 04/12/22 baclofen 10 mg tablet 10 mg PO BID PRN pain 30 days #60 06/02/22 tabs calcium carbonate 600 mg calcium (1,500 mg) tablet 600 mg PO BID cyanocobalamin (vitamin B-12) 2,500 mcg tablet 2,500 mcg PO QAM ondansetron 8 mg disintegrating tablet 8 mg PO Q8H PRN nausea and vomiting triamcinolone acetonide 0.5 % topical cream 1 applic topical TID PRN skin irritation conjugated estrogens 0.625 mg/gram vaginal cream (Premarin) 0.625 mg vaginal UD lorazepam 0.5 mg tablet (Ativan) 0.5 mg PO Q8H PRN anxiety mirtazapine 15 mg tablet (Remeron) 15 mg PO HS aluminum-mag hydroxide-simethicone 400 mg-400 mg-40 mg/5 mL oral susp (Mylanta Maximum Strength) 5 ml PO QID PRN Indigestion diclofenac sodium 1 % topical gel (Voltaren Arthritis Pain) 2 g topical QID PRN Pain fluticasone propionate 50 mcg/actuation nasal spray,suspension (Flonase Allergy Relief) 1 spray intranasal QAM PRN Congestion zoledronic acid 5 mg/100 mL in mannitol 5 %-water intravenous piggybck (Reclast) 5 mg IV UD duloxetine 60 mg capsule,delayed release 60 mg PO BID famotidine 40 mg tablet (Pepcid) 40 mg PO HS pravastatin 20 mg tablet 20 mg PO HS pantoprazole 40 mg tablet,delayed release See Rx Instructions levothyroxine 88 mcg tablet 88 mcg PO QAM baclofen 10 mg tablet 10 mg PO BID PRN pain biotin 2,500 mcg capsule 2,500 mcg PO QAM Continue as directed zoledronic acid 5 mg/100 mL in mannitol 5 %-water intravenous piggybck (Reclast) 5 mg IV UD ASK your surgeon for instructions diclofenac sodium 1 % topical gel (Voltaren Arthritis Pain) 2 g topical QID PRN Pain ASK your prescriber and surgeon conjugated estrogens 0.625 mg/gram vaginal cream (Premarin) 0.625 mg vaginal UD mirtazapine 15 mg tablet (Remeron) 15 mg PO HS STOP taking 2 weeks before surgery biotin 2,500 mcg capsule 2,500 mcg PO QAM STOP taking 24 hours before surgery triamcinolone acetonide 0.5 % topical cream 1 applic topical TID PRN skin irritation DO NOT take the morning of surgery calcium carbonate 600 mg calcium (1,500 mg) tablet 600 mg PO BID cyanocobalamin (vitamin B-12) 2,500 mcg tablet 2,500 mcg PO QAM aluminum-mag hydroxide-simethicone 400 mg-400 mg-40 mg/5 mL oral susp (Mylanta Maximum Strength) 5 ml PO QID PRN Indigestion baclofen 10 mg tablet 10 mg PO BID PRN pain Take morning of surgery With a small sip of water, OTHERWISE NOTHING TO EAT OR DRINK AFTER MIDNIGHT: ondansetron 8 mg disintegrating tablet 8 mg PO Q8H PRN nausea and vomiting (if needed) lorazepam 0.5 mg tablet (Ativan) 0.5 mg PO Q8H PRN anxiety (if needed) fluticasone propionate 50 mcg/actuation nasal spray,suspension (Flonase Allergy Relief) 1 spray intranasal QAM PRN Congestion (if needed) duloxetine 60 mg capsule,delayed release 60 mg PO BID levothyroxine 88 mcg tablet 88 mcg PO QAM pantoprazole 40 mg tablet,delayed release See Rx Instructions Take evening before surgery calcium carbonate 600 mg calcium (1,500 mg) tablet 600 mg PO BID ondansetron 8 mg disintegrating tablet 8 mg PO Q8H PRN nausea and vomiting (if needed) lorazepam 0.5 mg tablet (Ativan) 0.5 mg PO Q8H PRN anxiety (if needed) aluminum-mag hydroxide-simethicone 400 mg-400 mg-40 mg/5 mL oral susp (Mylanta Maximum Strength) 5 ml PO QID PRN Indigestion (if needed) duloxetine 60 mg capsule,delayed release 60 mg PO BID famotidine 40 mg tablet (Pepcid) 40 mg PO HS pravastatin 20 mg tablet 20 mg PO HS baclofen 10 mg tablet 10 mg PO BID PRN pain (if needed) pantoprazole 40 mg tablet,delayed release See Rx Instructions Other Notes If you have any questions please call us at [phone] or [phone] or [phone] or [phone]
--- NOTE | 2022-06-04 11:10 | Anesthesiology Consultation ---
Date of Service June 04, 2022 Assessment & Plan (1) Encounter for pre-operative examination: Plan - Case discussed in detail with Dr. Webster who advised sending note to [facility] as FYI that patient is scheduled for this procedure several days before planned MRCP and to GI discretion if needs done prior to cervical spine surgery or if it can wait until she is recovered post-op. Form completed, to be faxed to [facility]. He advised otherwise patient is acceptable to proceed from this aspect and overall from his anesthesia standpoint. - choledocholithiasis: right upper quadrant ultrasound does indicate that the bile duct is larger than in past studies. Her liver enzymes are within normal limits for the present time. Thus I would recommend we do an MRCP to better evaluate the common bile duct. If the patient is unable to tolerate an MRI we would then make arrangements for endoscopic ultrasound with possible ERCP in the same setting..." - anesthesia reaction: has woken up "shaking uncontrollably and stuttering" per pt. 07/09/21 records: surgeon note"...patient was noted to have a rhythmic tremor and shakiness. This was initially treated with an additional dose of an Ativan by the anesthesia service. Fortunately the patient continues to have this type of symptom postoperatively. Of note the same symptoms occurred after her initial ERCP 3 weeks ago requiring an overnight hospitalization. I wonder if this may be related to the patient's underlying history of anxiety and long-term Ativan use..." hospitalist note "Rhythmic tremor and shakiness s/p biliary stent removal, not responsive to Ativan dose. This was initially treated with an additional dose of an Ativan by the anesthesia service. The same symptoms occurred after her initial ERCP 3 weeks ago requiring an overnight hospitalization. At that time, she was diagnosed with ERCP induced pancreatitis, required- Monitored on med/surg with tele overnight for observation- CT head, CBC, CMP ordered all largely unremarkable- ? if this is related to underlying history of anxiety, long-term Ativan use that she is prescribed 0.5 mg every 8 hours as needed- MRI obtained with results above (no acute findings). Neuro checks performed q4h and were unremarkable...." Chart Review Chart Review: Acceptable Risk for Surgery and Patient seen in Pre Admission Testing Teaching & Discussion Pre-Anesthesia Teaching/Discussion Notes: Instructed NPO after midnight before surgery, except medications with 15 cc of water. Medication instructions provided according to the PAT guidelines. History Surgery Operation Date: 06/22/22 13:35 Proposed Procedures p C5-C6 Cervical Disc Arthroplasty - Paramjit Olivo MD Height/Weight Height: 5 ft 2 in Weight: 61.689 kg Allergies Allergy/AdvReac Type Severity Reaction Status Date / Time latex Allergy Intermediate Rash Verified 06/03/22 10:17 morphine Allergy Intermediate Rash, Verified 06/03/22 10:17 fever, nausea gluten Allergy Unknown celiac Verified 06/03/22 10:43 disease simvastatin Allergy Unknown Uncoded 06/04/22 11:25 nickel AdvReac Intermediate Blister Uncoded 06/03/22 10:17 Medications Home Medications Medication Instructions Recorded Confirmed Last Taken calcium carbonate 600 mg calcium 600 mg PO BID 11/20/20 06/03/22 01/05/22 08:00 (1,500 mg) tablet cyanocobalamin (vitamin B-12) 2,500 mcg PO QAM 07/08/21 06/03/22 01/05/22 08:00 2,500 mcg tablet ondansetron 8 mg disintegrating 8 mg PO Q8H PRN nausea and 08/21/21 06/03/22 Unknown tablet vomiting #20 tabs triamcinolone acetonide 0.5 % 1 applic topical TID PRN skin 08/21/21 06/03/22 01/05/22 08:00 topical cream irritation #15 grams conjugated estrogens 0.625 mg/gram 0.625 mg vaginal UD 09/22/21 06/03/22 01/04/22 22:00 vaginal cream (Premarin) lorazepam 0.5 mg tablet (Ativan) 0.5 mg PO Q8H PRN anxiety #30 tabs 12/01/21 06/03/22 Unknown mirtazapine 15 mg tablet (Remeron) 15 mg PO HS #30 tabs 12/21/21 06/03/22 01/05/22 22:00 aluminum-mag hydroxide-simethicone 5 ml PO QID PRN Indigestion 12/31/21 06/03/22 Unknown 400 mg-400 mg-40 mg/5 mL oral susp (Mylanta Maximum Strength) diclofenac sodium 1 % topical gel 2 g topical QID PRN Pain 12/31/21 06/03/22 01/04/22 08:00 (Voltaren Arthritis Pain) fluticasone propionate 50 1 spray intranasal QAM PRN 12/31/21 06/03/22 01/06/22 06:00 mcg/actuation nasal Congestion spray,suspension (Flonase Allergy Relief) zoledronic acid 5 mg/100 mL in 5 mg IV UD #100 mL 01/11/22 06/03/22 Unknown mannitol 5 %-water intravenous piggybck (Reclast) duloxetine 60 mg capsule,delayed 60 mg PO BID #180 caps 02/05/22 06/03/22 Unknown release famotidine 40 mg tablet (Pepcid) 40 mg PO HS #90 tabs 02/05/22 06/03/22 Unknown pravastatin 20 mg tablet 20 mg PO HS #90 tabs 02/08/22 06/03/22 Unknown pantoprazole 40 mg tablet,delayed See Rx Instructions .Route 03/15/22 06/03/22 Unknown release .COMPLEX #180 tabs levothyroxine 88 mcg tablet 88 mcg PO QAM #90 tabs 04/12/22 06/03/22 Unknown baclofen 10 mg tablet 10 mg PO BID PRN pain 30 days #60 06/02/22 06/03/22 Unknown tabs biotin 2,500 mcg capsule 2,500 mcg PO QAM 06/03/22 06/03/22 Unknown Past Medical History Medical History (Updated 06/04/22 @ 11:25 by Ariana Busby PA-C) Anxiety Mosqueda's esophagus Celiac disease Cervical stenosis of spine Choledocholithiasis follows with [facility], upcoming procedure 06/26/22 Chronic rhinitis Depression Dysphagia GERD (gastroesophageal reflux disease) controlled, stable per pt History of anesthesia complications "woke up shaking uncontrollably and stuttering." History of COVID-19 late fall 2019, test at [facility], not hosp; ear pain, sore throat, cough, congestion, fatigue>resolve. Hx of chest pain 12/10/2021, "woke up with chest pain, taken to [facility] ER, spent night in hospital; found pain to be from my stomach and acid reflux, and esophagus." Hyperlipidemia Hypothyroidism Irritable bowel syndrome with constipation Nausea with headaches daily. following with [facility] Osteoporosis Pancreatitis post ERCP (06/09/21) Peripheral neuropathy feet Prediabetes Patient denies h/o stroke, seizures, heart attack, heart failure, HTN, blood clots or blood transfusions. Exercise / Class Metabolic Activity II 4-5 Yardwork/Stairs/Walk up hill (denies chest discomfort or shortness of breath with 1 FOS) Past Family History Family History Brother Lung cancer Brain tumor Mother Colorectal cancer Liver cancer Sister Diabetes Breast cancer FH: stomach cancer Father Myocardial infarction Brother Bladder cancer Other Cervical stenosis of spine Denies family history of Ovarian cancer Prostate cancer Past Surgical History Surgical History (Updated 06/04/22 @ 11:07 by Ariana Busby PA-C) H/O: hysterectomy [facility]> "Normal coronary arteries" History of [place] fundoplication History of radiofrequency ablation (RFA) of nerve of cervical spine Hx of right cataract extraction S/P appendectomy S/P cholecystectomy S/P epidural steroid injection S/P ERCP (06/09/21) d/t CBD stone --> pt woke up from initial ERCP in [place] shaking uncontrollably, stuttering. Dr Woodson sent patient to ER at [facility] where she then had the second ERCP with stent the following day without trouble. S/P ERCP (06/10/21) d/t post ERCP pancreatitis, noted sludge/blood in CBD, stent placed S/P ERCP 07/09/21 Dr. Isra Woodson- ERCP- Balloon extraction of choledocholithiasis, Biliary tree swept of sludge S/P eye surgery macular hole repair S/P foot surgery left bunionectomy S/P rotator cuff surgery R shoulder x 2, 2006, 2008 Past Anesthesia History No Family Hx of Anesthesia Complications and Other (see above) History of PONV No Hx of PONV and No Hx of Motion Sickness Social History Smoking Status: Never smoker Do You Dip or Chew Tobacco: No Hx Alcohol Use: No Hx Substance Use: No substance use type: does not use Review of Systems Occasional snoring, denies witnessed apneas. Patient denies chest pain, shortness of breath, dyspnea on exertion, fever, chills, cough, wheezing, or palpitations. Physical Exam Vital Signs Vitals BP 138/77 P 86 TEMP 98.2 SP02 98% on RA RESP 18 Physical Full cervical extension range of motion without pain TMD 3.5 finger breadths Mallampati Score 2 Dentition: intact, denies chipped or loose teeth, caps/crowns, implants or bridges Lungs: normal respiratory effort. Clear throughout to auscultation, no adventitious breath sounds Cardiac: regular rate and rhythm, no murmurs noted Carotid arteries: negative bruit bilat Lab Results Anesthesia Preop Results Results Anesthesia Widget: WBC 4.70 K/ul (4.8-10.8) L 06/04/22 Hgb 12.2 g/dl (12.0-16.0) 06/04/22 Hct 36.7 % (37.0-47.0) L 06/04/22 Plt 339 K/uL (130-400) 06/04/22 PT 9.8 Seconds (9.0-12.0) 06/04/22 PTT 25.4 Seconds (21.0-31.0) 06/04/22 INR 0.9 (0.9-1.1) 06/04/22 Blood Type A Positive 06/04/22 Antibody Screen NEGATIVE 06/04/22 Testing Laboratory Results 05/17/2022 SODIUM: 140 POTASSIUM: 4.5 CHLORIDE: 104 CO2: 30 BUN: 14 CREATININE: 0.8 GLUCOSE: 70 Electrocardiogram Date: 12/11/21 NSR, rate 80 bpm Chest X-Ray Date: 06/04/22 No pneumothorax. No pleural effusions. The cardiac silhouette is normal in size. The lungs are clear. There are old, healed left-sided rib fractures again noted. The lungs remain hyperexpanded with mild apical predominant emphysematous changes. There is a metallic anchor again noted within the right humeral head. IMPRESSION: No significant change compared to the prior study. No acute process. Echocardiogram Date: 12/10/21 EF 60-65% No regional wall motion abnormalities Mild cLVH No significant valvular abnormalities Stress Test Date: 03/01/19 MPHR 90% METS 4.6 Probable negative ECG stress test at a low workload Cervical Spine Date: 05/18/22 MRI 1. Multilevel cervical spondylosis as detailed above. See discussion for detailed level by level analysis. 2. The cervical cord is normal in morphology and signal intensity. 3. No destructive bony process is seen. Other Testing US abdomen 05/27/22 The common bile duct is dilated measuring up to 1.2 cm, previously 0.7 cm, increased in size. The distal common bile duct is not well seen. If there is clinical concern for a distally obstructive stone, consider MRCP for further evaluation. Brain MRI 07/09/21 No acute intracranial findings. Head CT 07/09/21 No acute intracranial abnormality. Abdomen pelvis CT 06/17/21 Pneumobilia status post placement of a biliary stent. No acute abnormalities are seen. COVID-19 Risk Screen Screening Information COVID-19 Screen Date: 06/04/22 Exposure 21 Days Family/Household +COVID Last 21 Days: No Exposure 10 Days Any COVID Exposure Last 10 Days: No Symptoms Last 10 Days Experienced COVID Sx Last 10 Days: No + COVID 0-90 Days COVID + in Last 0-90 Days: No
[2022-06-22] MEDS ORDERED: LR 60ML/HR IV SCH (06:00)
[2022-06-22] MEDS ORDERED: ceFAZolin 2000MG 2,000 MG/15 ML SYR IV SCH (06:00)
[2022-06-22] MEDS ORDERED: LR 15ML/HR IV SCH (06:00)
[2022-06-22] MEDS ORDERED: DEXAMETHASONE SOD INJ 4 MG/ML VIAL ONE (06:56)
[2022-06-22] MEDS ORDERED: PROPOFOL IV EMULSION 10 MG/ML 20 ML VIAL IV ONE (06:56)
[2022-06-22] MEDS ORDERED: ONDANSETRON INJ 2 MG/ML 2 ML VIAL ONE (06:56)
[2022-06-22] MEDS ORDERED: ROCURONIUM BROMIDE 10 MG/ML 5 ML VIAL IV ONE ×6 (06:56→08:08)
[2022-06-22] MEDS ORDERED: LIDOCAINE 2% MPF LOCAL 5 ML VIAL ONE (06:56)
[2022-06-22] MEDS ORDERED: fentaNYL citrate PF 100 MCG/2 ML VIAL ONE (06:57)
[2022-06-22] MEDS ORDERED: MIDAZOLAM HCL 1 MG/ML 2ML VIAL ONE (06:57)
[2022-06-22] MEDS ORDERED: ePHEDrine sulfate 50 MG/ML AMP IV PRN (07:00)
[2022-06-22] MEDS ORDERED: DEXAMETHASONE SOD INJ 4 MG/ML VIAL IV PRN (07:00)
[2022-06-22] MEDS ORDERED: ONDANSETRON INJ 2 MG/ML 2 ML VIAL IV PRN ×2 (07:00→13:43)
[2022-06-22] MEDS ORDERED: fentaNYL citrate PF 100 MCG/2 ML VIAL IV PRN (07:00)
[2022-06-22] MEDS ORDERED: ATROPINE SULFATE 0.1 MG/ML 10ML SYR IV PRN (07:00)
[2022-06-22] MEDS ORDERED: HYDROmorphone INJ 1 MG/ML SYRINGE IV PRN (07:00)
[2022-06-22] MEDS ORDERED: THROMBIN 5000 UNITS KIT ONE (07:17)
[2022-06-22] MEDS ORDERED: VANCOMYCIN HCL 1000MG/20ML VIAL ONE (07:17)
--- NOTE | 2022-06-22 07:17 | History & Physical Bridge Note ---
Date of Service June 22, 2022 History & Physical Bridge Note I have examined the patient, reviewed the History & Physical and in the interval since the performance of the History & Physical I have noted the following changes of clinical significance: no changes noted
[2022-06-22] MEDS ORDERED: GELATIN SPONGE SZ 100 ONE (07:18)
[2022-06-22] MEDS ORDERED: HYDROmorphone INJ 2 MG/ML SYR/VIAL ONE (08:08)
[2022-06-22] MEDS ORDERED: ePHEDrine sulfate 50 MG/ML AMP ONE (08:16)
[2022-06-22] MEDS ORDERED: FLOSEAL HEMOSTATIC MATRIX 10ML TOP ONE (09:48)
[2022-06-22] MEDS ORDERED: NEOSTIGMINE METHYLSULFATE 1 MG/ML 10ML VIAL ONE (10:14)
[2022-06-22] MEDS ORDERED: GLYCOPYRROLATE 0.2 MG/ML VIAL ONE (10:14)
[2022-06-22] MEDS ORDERED: KETOROLAC 30 MG/ML VIAL ONE (10:26)
--- NOTE | 2022-06-22 10:36 | Post Operative Brief Note ---
PG Immediate Post Op with CF Date of Surgery June 22, 2022 Pre & Post Diagnosis Operation Date: 06/22/22 07:15 Pre-Op Diagnosis: Cervical Disc Degeneration: C5-C6 Level Post-Op Diagnosis: Cervical Disc Degeneration: C5-C6 Level I identified the patient and participated in the time-out.: Yes Procedure Operation Date: 06/22/22 07:15 Actual Procedures p C5-C6 Cervical Disc Arthroplasty(Not Applicable) - Paramjit Olivo MD Surgeon Paramjit Olivo MD Ekg Tech none Estimated Blood Loss 20 Findings Consistent with Post-Op Diagnosis
--- NOTE | 2022-06-22 11:47 | Anesthesiology Progress Note ---
Date of Service June 22, 2022 Anesthesia Post Procedure Vital Signs Vital Signs: Temp Pulse Pulse Resp BP Pulse Ox O2 Del Method 06/22/22 11:45 91 H 18 117/50 L 97 Nasal Cannula 06/22/22 11:35 37.2 C 90 20 123/54 L 97 Nasal Cannula 06/22/22 11:30 36.4 C L 89 20 125/53 L 97 Nasal Cannula 06/22/22 11:20 36.4 C L 97 H 20 128/59 L 97 Nasal Cannula 06/22/22 11:10 36.4 C L 102 H 19 127/62 92 Room Air 06/22/22 11:00 36.4 C L 99 H 21 141/68 H 98 Nasal Cannula 06/22/22 10:50 36.4 C L 97 H 19 146/70 H 100 Nasal Cannula 06/22/22 10:39 36.4 C L 117 H 17 147/69 H 100 Oxymask 06/22/22 05:58 36.6 C 80 16 154/80 H 98 Room Air O2 Flow Rate 06/22/22 11:45 2 06/22/22 11:35 2 06/22/22 11:30 2 06/22/22 11:20 2 06/22/22 11:10 06/22/22 11:00 2 06/22/22 10:50 2 06/22/22 10:39 6 06/22/22 05:58 Pain Intensity Head: Pain Intensity: 0 Transfer of Care Handoff Completed per policy Notes Mental Status: alert / awake / arousable and participated in evaluation Nausea / Vomiting: adequately controlled Pain: adequately controlled Airway Patency, RR, SpO2: stable & adequate BP & HR: stable & adequate Hydration State: stable & adequate Anesthetic Complications: no major complications apparent and Pt Satisfied with anesthetic care
--- NOTE | 2022-06-22 11:56 | Fluoroscopy Report ---
FL cervical 2-3V CLINICAL HISTORY: C5-C6 CERVICAL DISC ARTHROPLASTY TECHNIQUE: 10 views were obtained with the C-arm in the OR with the above procedure. Total fluoroscop y time was 94.3 seconds. Radiation dose was 13.07 mGy. Comparison: Comparison is made to cervical spine radiographs 05/17/2022 FINDINGS/IMPRESSION: Intraoperative images were obtained of C5-C6 arthroplasty. Please correlate with intraoperative fluoroscopy and operative report. ACT 112: Negative or not required by law. Electronically signed by: Yared Hernandez M.D. 06/22/2022 11:55 AM
[2022-06-22] MEDS ORDERED: ONDANSETRON 8MG OD TAB PO PRN (13:43)
[2022-06-22] MEDS ORDERED: diphenhydrAMINE Capsule 25 MG CAP PO PRN (13:43)
[2022-06-22] MEDS ORDERED: LORazepam 2 MG/1 ML VIAL IV PRN (13:43)
[2022-06-22] MEDS ORDERED: METOCLOPRAMIDE HCL INJ 5 MG/ML 2 ML VIAL IV PRN (13:43)
[2022-06-22] MEDS ORDERED: dexAMETHasone 8 MG in SYRINGE 0 ML IV PRN (13:43)
[2022-06-22] MEDS ORDERED: ALUMINUM/MAGNESIUM/SIMETH (MAALOX MAX) 30 ML UDC PO PRN (13:43)
[2022-06-22] MEDS ORDERED: ACETAMINOPHEN 1,000 MG/100 ML VIAL IV PRN (13:43)
[2022-06-22] MEDS ORDERED: DO NOT ADMINISTER FLU VACCINE PRN (13:43)
[2022-06-22] MEDS ORDERED: BACLOFEN 10 MG TAB PO PRN (13:43)
[2022-06-22] MEDS ORDERED: HYDROmorphone INJ 0.5 MG/0.5 ML SYR IV PRN (13:43)
[2022-06-22] MEDS ORDERED: RACEPINEPHRINE 2.25% NEBU SOLN 0.5 ML VIAL INH PRN (13:43)
[2022-06-22] MEDS ORDERED: ONDANSETRON 4 MG OD TAB PO PRN (13:43)
[2022-06-22] MEDS ORDERED: MAGNESIUM HYDROXIDE SUSP 30 ML UDC PO PRN (13:43)
[2022-06-22] MEDS ORDERED: DO NOT ADMINISTER PNEUMOCOCCAL VACCINE PRN (13:43)
[2022-06-22] MEDS ORDERED: ACETAMINOPHEN 500 MG TAB PO PRN (13:43)
[2022-06-22] MEDS ORDERED: SOD PHOSPHATE/SOD BIPHOSPHATE ENEMA 132 ML BTL PR PRN (13:43)
[2022-06-22] MEDS ORDERED: LORazepam 0.5 MG TAB PO PRN ×2 (13:43)
[2022-06-22] MEDS ORDERED: traMADol HCL 50 MG TABLET PO PRN (13:43)
[2022-06-22] MEDS ORDERED: bisacodyL 10 MG SUPP PR PRN (13:43)
[2022-06-22] MEDS ORDERED: FAMOTIDINE 20 MG TAB PO PRN (13:43)
[2022-06-22] MEDS ORDERED: ALUMINUM/MAGNESIUM SUSP 30 ML UDC PO PRN (13:43)
[2022-06-22] MEDS ORDERED: PROMETHAZINE HCL 12.5 MG in SODIUM CHLORIDE 0.9% 50 ML IV PRN (13:43)
[2022-06-22] MEDS ORDERED: hydrOXYzine HCl 25 MG TAB PO PRN (13:43)
[2022-06-22] MEDS ORDERED: NALOXONE HCL 0.4 MG/1 ML VIAL/CARP IV PRN (13:43)
[2022-06-22] MEDS ORDERED: ACETAMINOPHEN 1000 MG/100 ML IV IV ONE (13:44)
--- NOTE | 2022-06-22 15:10 | Operative Report ---
PG Post Operative Report Pre & Post Diagnosis Operation Date: 06/22/22 07:15 Pre-Op Diagnosis: Cervical Disc Degeneration: C5-C6 Level Post-Op Diagnosis: Cervical Disc Degeneration: C5-C6 Level I identified the patient and participated in the time-out.: Yes Procedure Operation Date: 06/22/22 07:15 Actual Procedures p C5-C6 Cervical Disc Arthroplasty(Not Applicable) - Paramjit Olivo MD Surgeon Paramjit Olivo MD Nut Culler none Estimated Blood Loss 20 Findings Consistent with Post-Op Diagnosis Specimens None. Description of Procedure Patient was taken to the operating room and after adequate anesthesia was positioned on the OSI flat top table. Adjustments were made to her position and she was secured in routine fashion for anterior approach of the cervical spine. Reprep was performed followed by bringing in fluoroscopy where I then marked for the incision to approach the C5-6 level. Prep and drape was performed, I then began the procedure with a transverse incision on the left in standard fashion mobilizing down to the anterior aspect of the cervical spine and confirming our position fluoroscopically. I then mobilized the tissue in the area followed by then insertion of distractor pins in C5 and C6. Retractors were then set along with distraction, and I began the procedure within incision in the anterior aspect of the annulus. From here I was able to work into the disc base removing disc material and continue this process mobilizing the level using distractor paddle and then the distractor device to expose the interspace. Once completed, I then performed decompression with removal of cartilage from the endplates and then moving posteriorly using the high-speed bur to thin and remove a significant overhanging osteophyte causing much of the stenosis at this level. This was thinned and carefully removed and I then completed a decompression down to the dura across to the uncinates on both sides. With this completed some thrombin and Gelfoam was placed, later I placed some Floseal for a limited amount of intermittent bleeding. Once dry, I then inserted a trial and measured on AP and lateral views selecting a 17 x 17 mm Mobi-C artificial disc. This device was then obtained, and using fluoroscopic control is able to tap it in the proper position at the C5-6 level. The distractor pins were then removed, bone wax was applied to the openings followed by then a follow-up inspection no issues were noted, I placed vancomycin powder and then used 3-0 Vicryl sutures to close the operative site in layers followed by benzoin and Steri-Strips. Sterile dressing was applied, patient tolerated procedure well was taken recovery room satisfied condition. I attest to the content of the Intraoperative Record and any orders documented therein. Any exceptions are noted below.
[2022-06-22] MEDS: LACTATED RINGER'S 1,000 ML IV SCH ×2 (16:12→22:10)
[2022-06-22] MEDS: ceFAZolin 1000MG 1,000 MG/7.5 ML SYR IV SCH (17:59)
[2022-06-22] MEDS: oxyCODONE/ACETAMINOPHEN 5mg/325mg TAB PO PRN ×2 (18:01→22:09)
[2022-06-22] MEDS ORDERED: DOCUSATE SODIUM/SENNA 50/8.6MG TAB PO SCH (21:00)
[2022-06-22] MEDS ORDERED: MIRTAZAPINE TAB 15 MG TAB PO SCH (21:00)
[2022-06-23] MEDS: ceFAZolin 1000MG 1,000 MG/7.5 ML SYR IV SCH (00:24)
[2022-06-23] MEDS: oxyCODONE/ACETAMINOPHEN 5mg/325mg TAB PO PRN ×2 (05:27→12:23)
[2022-06-23] MEDS: POLYETHYLENE (MIRALAX) 17 GM PACK PO SCH ×2 (05:27→12:25)
--- NOTE | 2022-06-23 10:46 | Orthopedic Progress Note ---
Date of Service June 23, 2022 Assessment & Plan (1) Other cervical disc degeneration at C5-C6 level: Subjective Patient awake and alert, incision site unremarkable. Limited cervical axial symptoms. Patient is cleared OT and PT. Impression/plan: Postop day 1 status post C5-6 anterior decompression artificial disc replacement. We will discharge the patient today with follow-up in 2 weeks, postoperative care and instructions were reviewed. Review of Systems All systems reviewed & are unremarkable except as noted in HPI & below. Physical Exam . Results & Data Results & Data Laboratory Results . Diagnostic Findings . PG Care Time/CCT Total # of Minutes Spent Total Time Spent with Patient: Total time spent is greater than 50% in coordination of care (as documented) at patient's floor/unit and/or counseling patient: Coding Level of Care Code 90878 Post Operative Follow-Up Diagnoses Other cervical disc degeneration at C5-C6 level M50.322
--- NOTE | 2022-06-30 15:16 | Discharge Summary ---
Date of Service June 30, 2022 Admission HPI (Per Admitting) cervical stenosis Principal Diagnosis Same as "Discharge Diagnosis" noted below under Discharge Instructions. Discharge Exam . Discharge Data Procedures Performed Operation Date: 06/22/22 07:15 Actual Procedures p C5-C6 Cervical Disc Arthroplasty(Not Applicable) - Paramjit Olivo MD Ordered Studies 06/22/22 07:15 FL cervical 2-3V Routine Hospital Course (1) Other cervical disc degeneration at C5-C6 level: (2) Cervical stenosis of spine: Plan C5-6 decompression, artificial disc replacement PG Care Time/CCT Total # of Minutes Spent Total Time Spent with Patient: Total time spent is greater than 50% in coordination of care (as documented) at patient's floor/unit and/or counseling patient: Discharge Plan Discharge Items Patient Disposition: Home - Self-Care Reason For Visit: SURGERY Discharge Diagnosis: s/p ACDF Activity: Per Instructions section Lifting: No more than 10 pounds Bathing: No limitations Driving/Machine Use: Resume 3 days after discharge Weightbearing: Full weightbearing Non-emergency contact: Surgeon Call non-emergency contact if: your symptoms worsen Follow-up/Referrals: Cris Campos DO [Primary Care Provider] - Diet: Regular Diet Texture: Easy to Chew Addtl Attending Provider Instructions: Instructions given in hospital. Pending Studies at Discharge: No Stand-Alone Forms: [employer], Smoking Cessation Medications and DC Order Prescriptions: Continued lorazepam [Ativan] 0.5 mg tablet 0.5 mg PO Q8H PRN (Reason: anxiety) Qty: 30 0RF zoledronic [id number] [Reclast] 5 mg/100 mL piggyback 5 mg IV UD Qty: 100 0RF Rx Instructions: IV INFUSE 5MG INTRAVENOUSLY OVER 15 MINUTES DIRECTED; ONCE PER YEAR. duloxetine 60 mg capsule,delayed release(DR/EC) 60 mg PO BID Qty: 180 2RF famotidine [Pepcid] 40 mg tablet 40 mg PO HS Qty: 90 1RF pravastatin 20 mg tablet 20 mg PO HS Qty: 90 3RF pantoprazole 40 mg tablet,delayed release (DR/EC) See Rx Instructions .ROUTE .COMPLEX Qty: 180 3RF Dose Instruction: TAKE 1 TABLET TWICE A DAY Rx Instructions: TAKE 1 TABLET TWICE A DAY levothyroxine 88 mcg tablet 88 mcg PO QAM Qty: 90 1RF ondansetron 8 mg tablet,disintegrating 8 mg PO Q8H PRN (Reason: nausea and vomiting) Qty: 20 0RF triamcinolone acetonide 0.5 % cream 1 applic topical TID PRN (Reason: skin irritation) Qty: 15 0RF mirtazapine [Remeron] 15 mg tablet 15 mg PO HS Qty: 30 3RF calcium carbonate 600 mg calcium (1,500 mg) tablet 600 mg PO BID Premarin 0.625 mg/gram cream 0.625 mg vaginal UD Rx Instructions: 0.625 mg vaginally 2-3 times per week; fluticasone propionate [Flonase Allergy Relief] 50 mcg/actuation spray,suspension 1 spray intranasal QAM PRN (Reason: Congestion) Rx Instructions: administer into each nostril alum-mag hydroxide-simeth [Mylanta Maximum Strength] 400-400-40 mg/5 mL suspension 5 ml PO QID PRN (Reason: Indigestion) Rx Instructions: Pt reports that she spoke with someone [facility]P D[facility] about sucralfate being too expensive, she was told to take this in its place. I cannot locate documentation on this? -ELIZABETH RN diclofenac sodium [Voltaren Arthritis Pain] 1 % gel 2 g topical QID PRN (Reason: Pain) biotin 2,500 mcg Capsule 2,500 mcg PO QAM cyanocobalamin (vitamin B-12) 2,500 mcg tablet 2,500 mcg PO QAM No Action oxycodone 5 mg tablet 5 mg PO Q6H PRN (Reason: severe ) Qty: 20 0RF baclofen 10 mg tablet 10 mg PO BID PRN (Reason: pain) 90 Days Qty: 180 2RF Discharge Orders: Discharge Order (Routine); Ordered 06/23/22 Ordered By: Paramjit Mccoy/Other Patient Handouts: Cervical Spine Tx Admission Data Admit Date/Time: 06/22/22 11:22 Attending Provider: Paramjit Olivo Admit Provider: Paramjit Olivo Primary Care Provider: Cris Campos Other Interventions: Discharge Summary Assessment (RN) Last Done: 06/23/22 12:42
== END 2022-06-23 12:52 | disposition home or self-care (01) ==
LOC: 3E 05:31 → ASU 05:31

== ENCOUNTER 2024-09-16 13:23 | Inpatient (IN) ==
--- NOTE | 2024-09-16 13:44 | Emergency Department Note ---
Impression & Plan Acute hyponatremia, Generalized muscle weakness, Fracture closed, nasal bone, Fever of unknown origin, Pancytopenia ED Provider Note NAME: MARILU DAVIS AGE: 74 SEX: F : 1950 ARRIVES VIA: Ambulance INFORMANT: Patient, ED PROVIDER(S): Kamlesh Bueno DO CHIEF COMPLAINT: Weakness HPI: The patient is a 74-year-old female who presented to the emergency department for generalized weakness. The patient states when she stands she feels though she is having generalized weakness. She has been falling recently. She fell most recently on Tuesday. She struck her face. She was seen at a different emergency department recently diagnosed with urinary tract infection. She denies having any abdominal pain or chest pain. She denies having any back pain. Patient does complain of facial pain. ROS: See above HPI for pertinent positives & negatives. A total of 10 systems reviewed and were otherwise negative. PAST MEDICAL HISTORY: See Below PAST SURGICAL HISTORY: See Below FAMILY HISTORY: See Below SOCIAL HISTORY: See Below HOME MEDICATIONS: See Below ALLERGIES: See Below VITALS: See Below PHYSICAL EXAMINATION: Primary Survey Airway: Intact Breathing: Normal, breath sounds equal bilaterally Circulation: Skin warm, distal pulses 2+, capillary refill less than 2 seconds Disability Pupils: Equal and reactive to light, 3mm, brisk GCS: 15, Motor Function: Moves all extremities. Sensory: No deficits Secondary Survey GEN: Well developed and well-nourished HEAD: There was swelling and ecchymosis over the bridge of the nose. No active bleeding was noted. EYES: Pupils round reactive to light, conjunctiva clear, extraocular movements intact, no raccoons eyes ENT: oropharynx was clear. NECK: No JVD, midline trachea, no cervical spine tenderness, C-collar in place HEART: Regular rate and rhythm LUNGS: Clear to auscultation bilaterally. CHEST: Chest wall non-tender, no bruising/deformity ABD: There is no tenderness guarding rigidity noted. BACK: No step offs or deformities, T-L spine non tender EXT: 2+ global pulses, moving all extremities well, +5/5 muscle strength globally NEURO: The patient is awake alert and oriented x 3. Strength is symmetric. MEDICAL DECISION MAKING: The patient is a 74-year-old female who presented to the emergency department for an evaluation of difficulty ambulating and frequent falls. The patient was found have a fever in the emergency department. Further laboratory and radiographic studies were obtained including radiographic imaging. I discussed the patient's laboratory and radiographic studies with her. She was treated with IV fluids and IV antibiotics in emergency department. She was reevaluated multiple times. She was also found to be pancytopenic. Given her findings the patient was felt to be a better candidate for inpatient management. I discussed her condition with the on-call [facility]. They have agreed to evaluate the patient in the emergency department for further management and disposition. Triage Nursing notes reviewed. Prior medical records reviewed Vital Signs: reviewed and remarkable for episodes of hypotension. Differential diagnosis: Infection, dehydration, metabolic abnormality, hypo/hyperglycemia, electrolyte disturbance, anemia, hypoxia, cardiac sources, intracerebral event, toxicologic, neurologic, as well as other pathologies. ER treatment provided: See below Diagnostics interpreted by me: ECG: EKG was obtained in the emergency department. My interpretation is normal sinus rhythm at 74 bpm. There is no ectopy. There was no acute ST segment abnormalities noted. This was compared to a tracing from December 11, 2021. No changes were noted. Cardiac Monitoring: An order was placed for continuous cardiac monitoring. The monitor shows a rate of 66 bpm with sinus rhythm. Laboratory studies: As stated above and show below. Imaging studies: See below. Radiographic imaging was reviewed by myself Consultation(s): Nadeem was notified about the patient. He was on for the [facility]. Cervical spine was clinically cleared on my initial evaluation. Cervical spine was also radiographically cleared. Past Med/Surg History Problem List (Updated 09/16/24 @ 18:09 by Kamlesh Bueno DO) Pancytopenia (Acute) Fever of unknown origin (Acute) Fracture closed, nasal bone (Acute) Acute hyponatremia (Acute) Generalized muscle weakness (Acute) Hyponatremia Depression Iron deficiency Prediabetes Migraine without aura Facet arthropathy, cervical Mild mitral regurgitation Cervical radiculopathy Anxiety Esophageal obstruction Vitamin D deficiency Atrophic vaginitis Positive VINCENT (antinuclear antibody) Hypothyroidism Celiac disease Osteoporosis Insomnia Occipital neuralgia of left side Chronic daily headache Small fiber neuropathy Other cervical disc degeneration at C5-C6 level Hyperlipidemia Cervical stenosis of spine Gastroparesis Irritable bowel syndrome with constipation Mosqueda's esophagus Chronic rhinitis Medical History Neck pain on left side Pain in right shoulder Trigger point of abdomen Burning sensation of feet Family history of coronary artery disease Dyspnea on exertion Dysphagia History of anesthesia complications "woke up shaking uncontrollably and stuttering." Hx of chest pain 12/10/2021, "woke up with chest pain, taken to [facility] ER, spent night in hospital; found pain to be from my stomach and acid reflux, and esophagus." History of COVID-19 late fall 2019, test at [facility], not hosp; ear pain, sore throat, cough, congestion, fatigue>resolve. Choledocholithiasis follows with [facility], upcoming procedure 06/26/22 Pancreatitis post ERCP (06/09/21) Nausea with headaches daily. following with [facility] Peripheral neuropathy feet Celiac disease Hypothyroidism Osteoporosis GERD (gastroesophageal reflux disease) controlled, stable per pt Surgical History Hx of cervical spine surgery (05/2022) C5-6 anterior decompression and disc arthroplasty 06/22/22 Hx of right cataract extraction History of radiofrequency ablation (RFA) of nerve of cervical spine S/P epidural steroid injection S/P ERCP 07/09/21 Dr. Isra Woodson- ERCP- Balloon extraction of choledocholithiasis, Biliary tree swept of sludge History of cardiac cath 2013, [facility] [place], no stents> "Normal coronary arteries" S/P ERCP (06/10/21) d/t post ERCP pancreatitis, noted sludge/blood in CBD, stent placed S/P ERCP (06/09/21) d/t CBD stone --> pt woke up from initial ERCP in [place] shaking uncontrollably, stuttering. Dr Woodson sent patient to ER at [facility] where she then had the second ERCP with stent the following day without trouble. S/P eye surgery macular hole repair S/P rotator cuff surgery R shoulder x 2, 2006, 2008 H/O: hysterectomy NISH S/P foot surgery left bunionectomy S/P cholecystectomy S/P appendectomy History of [place] fundoplication Family History Brother Lung cancer Brain tumor Mother Colorectal cancer Liver cancer Sister Diabetes Breast cancer FH: stomach cancer Father Myocardial infarction Brother Bladder cancer Other Cervical stenosis of spine Denies family history of Ovarian cancer Prostate cancer Social History Smoking Status: Never smoker Second Hand Exposure: No; Do You Dip or Chew Tobacco: No; Hx Alcohol Use: No Hx Substance Use: No Preferred Language: Sami Communication Ability: Effective Visual Impairment: No Limitations Hearing Ability: Hard of Hearing Allopathic Doctor Required: No Beliefs That Will Affect Care: None marital status: Current Living Situation: Spouse current occupational status: retired Feels Safe at Home: Yes Childhood Exposure to Second-Hand Smoke: No Diet: gluten free caffeine: No during the past year weight has: remained stable Dental Care, Regularly: No Physical Activity Frequency: 5-6 Times per Week Seatbelt Use: always Sunscreen Use: Yes Assistive Devices: None Allergies Allergies Allergy/AdvReac Type Severity Reaction Status Date / Time latex Allergy Intermediate Rash Verified 09/16/24 16:55 morphine Allergy Intermediate Rash, Verified 09/16/24 16:55 fever, nausea nickel Allergy Intermediate Blister Verified 09/16/24 16:55 gluten Allergy Unknown celiac Verified 09/16/24 16:55 disease simvastatin Allergy Unknown Unknown Verified 09/16/24 16:55 sumatriptan AdvReac Intermediate Nausea Verified 09/16/24 16:55 Home Meds Home Medications Medication Instructions Recorded Confirmed calcium carbonate 600 mg PO BID 11/20/20 09/16/24 cyanocobalamin (vitamin B-12) 2,500 mcg PO QAM 07/08/21 09/16/24 2,500 mcg tablet diclofenac sodium 1 % topical gel 2 g topical QID PRN Pain 12/31/21 09/16/24 (Voltaren Arthritis Pain) riboflavin (vitamin B2) 400 mg 400 mg PO DAILY 05/21/24 09/16/24 tablet aluminum-mag hydroxide-simethicone 5 ml PO QID PRN Indigestion 06/08/24 09/16/24 400 mg-400 mg-40 mg/5 mL oral susp (Mylanta Maximum Strength) diclofenac sodium 1 % topical gel 2 g topical QID PRN Pain 09/16/24 09/16/24 levothyroxine 75 mcg tablet 75 mcg PO .5XW/UD 09/16/24 09/16/24 pantoprazole 40 mg tablet,delayed 40 mg PO BID 09/16/24 09/16/24 release Previous Rx's Medication Instructions Recorded triamcinolone acetonide 0.5 % 1 applic topical TID PRN skin 08/21/21 topical cream irritation #15 grams zoledronic acid 5 mg/100 mL in 5 mg IV UD #100 mL 03/08/23 mannitol 5 %-water intravenous piggybck (Reclast) magnesium glycinate 400 mg (4 x 100 mg magnesium) PO 04/20/23 DAILY #30 caps famotidine 40 mg tablet (Pepcid) 40 mg PO HS #90 tabs 04/13/24 duloxetine 60 mg capsule,delayed 60 mg PO BID #180 caps 04/19/24 release propranolol 60 mg capsule,24 60 mg PO DAILY #90 caps 05/21/24 hr,extended release pravastatin 40 mg tablet 40 mg PO DAILY #90 tabs 06/26/24 mirtazapine 15 mg tablet (Remeron) 15 mg PO HS #30 tabs 09/13/24 lorazepam 0.5 mg tablet (Ativan) 0.5 mg PO Q8H PRN anxiety #10 tabs 09/14/24 Results & Data (ED) Vital Signs Vital Signs - 24 hr 09/16/24 13:30 09/16/24 13:37 09/16/24 14:09 Temperature 38.2 C H Temperature Source Oral Pulse Rate - Lying 74 Pulse Rate - Sitting 81 Pulse Rate - Standing 92 H Pulse Rate 75 Pulse Rate [Apical] Respiratory Rate 16 Respiratory Effort / Characteristics Respiratory Depth Respiratory Pattern Blood Pressure - Lying 121/64 Blood Pressure - Sitting 119/66 Blood Pressure- Standing 92/47 L Blood Pressure 125/66 Blood Pressure [Left Arm] Blood Pressure Mean 85 Blood Pressure Mean [Left Arm] Pulse Oximetry 94 98 Oxygen Delivery Method Room Air Room Air Sepsis Recent Fever Within 48 Hours Yes Sepsis New/Unexplained Change in Mental Status No Sepsis Action Taken by Nursing No Action Required 09/16/24 14:23 09/16/24 15:30 09/16/24 15:52 Temperature 37.2 C Temperature Source Oral Pulse Rate - Lying Pulse Rate - Sitting Pulse Rate - Standing Pulse Rate 69 Pulse Rate [Apical] 70 66 Respiratory Rate 21 20 Respiratory Effort / Characteristics Non-Labored Spontaneous Respiratory Depth Normal Respiratory Pattern Regular Blood Pressure - Lying Blood Pressure - Sitting Blood Pressure- Standing Blood Pressure Blood Pressure [Left Arm] 124/61 118/59 L Blood Pressure Mean Blood Pressure Mean [Left Arm] 82 78 Pulse Oximetry 96 94 Oxygen Delivery Method Room Air Room Air Sepsis Recent Fever Within 48 Hours Sepsis New/Unexplained Change in Mental Status Sepsis Action Taken by Nursing 09/16/24 16:30 Temperature Temperature Source Pulse Rate - Lying Pulse Rate - Sitting Pulse Rate - Standing Pulse Rate Pulse Rate [Apical] 66 Respiratory Rate 12 Respiratory Effort / Characteristics Respiratory Depth Respiratory Pattern Blood Pressure - Lying Blood Pressure - Sitting Blood Pressure- Standing Blood Pressure Blood Pressure [Left Arm] 91/47 L Blood Pressure Mean Blood Pressure Mean [Left Arm] 61 Pulse Oximetry 94 Oxygen Delivery Method Room Air Sepsis Recent Fever Within 48 Hours Sepsis New/Unexplained Change in Mental Status Sepsis Action Taken by [facility] Medications Current Medication List: was personally reviewed by me Laboratory Data Attestation: I reviewed the patient's lab results. 09/16/24 17:44 09/16/24 16:52 Lab Results 09/16/24 09/16/24 09/16/24 Range/Units 13:37 14:05 14:28 WBC 3.21 L (4.8-10.8) K/ul RBC 3.66 L (4.20-5.40) M/uL Hgb 11.5 L (12.0-16.0) g/dl Hct 33.0 L (37.0-47.0) % MCV 90.2 (80.0-100.0) fL MCH 31.4 (25.0-34.0) pg MCHC 34.8 (32.0-36.0) g/dL RDW Std Deviation 40.3 (36.4-46.3) fL RDW Coeff of Geri 12.2 (11.5-14.5) % Plt Count 81 L (130-400) K/uL MPV 11.0 (9.4-12.4) fL Immature Gran % (Auto) 0.6 % Neut % (Auto) 72.6 % Lymph % (Auto) 15.9 % [place]upe % (Auto) 10.3 % Eos % (Auto) 0.0 % Baso % (Auto) 0.6 % Neut # (Auto) 2.33 (1.40-6.50) K/uL Lymph # (Auto) 0.51 L (1.20-3.40) K/uL [place] # (Auto) 0.33 (0.11-0.59) K/uL Eos # (Auto) 0.00 (0.00-0.50) K/uL Baso # (Auto) 0.02 (0.00-0.20) K/uL Immature Gran # (Auto) 0.02 (0.01-0.20) K/uL Absolute Nucleated RBC Nucleated RBC % (auto) Platelet Estimate Decreased L (Normal) Giant Platelets 1+ PT 10.3 (9.0-12.0) Seconds INR 0.9 (0.9-1.1) Sodium 127 L (136-145) mmol/L Potassium 4.0 (3.5-5.1) mmol/L Chloride 97 L (98-107) mmol/L Carbon Dioxide 24 (21-32) mmol/L Anion Gap 6 (3-11) BUN 10 (6-23) mg/dl Creatinine 0.96 (0.6-1.2) mg/dl Est Cr Clr Drug Dosing 48.0 ml/min eGFR 61.70 BUN/Creatinine Ratio 10.4 (10-20) Glucose 119 H (70-99(Fasting)) mg/dl Osmolality 268 L (280-300) mOsm/kg Lactate 1.2 (0.4-2.0) mmol/L Calcium 8.0 L (8.6-10.3) mg/dl Magnesium 1.8 (1.7-2.4) mg/dl Total Bilirubin 0.6 (0.2-1.0) mg/dl AST 54 H (13-39) U/L ALT 42 (7-52) U/L Alkaline Phosphatase 44 (34-104) U/L Total Creatine Kinase 174 (26-192) U/L Troponin I High Sens 6.6 (0-14) pg/ml C-Reactive Protein 8.40 H (0-0.5) mg/dl Total Protein 6.3 (6.0-8.3) gm/dl Albumin 3.7 (3.4-5.0) gm/dl Globulin 2.6 (2.5-4.0) gm/dl Albumin/Globulin Ratio 1.4 (0.9-2) Procalcitonin Cancelled 0.62 H TSH 0.706 (0.300-4.500) uIu/ml Urine Color Yellow Urine Appearance Clear (Clear) Urine pH 6.0 (4.5-7.5) Ur Specific Dilworth 1.013 (1.000-1.030) Urine Protein 1+ H (Negative) Urine Glucose (UA) Negative (Negative) Urine Ketones Trace H (Negative) Urine Blood Trace H (Negative) Urine Nitrite Negative (Negative) Urine Bilirubin Negative (Negative) Urine Urobilinogen Negative (Negative) Ur Leukocyte Esterase Negative (Negative) Urine WBC (Auto) 0-5 (0-5) /hpf Urine RBC (Auto) 0-2 (0-2) /hpf U Hyaline Cast (Auto) 0-2 (0-2) /lpf U Epithel Cells (Auto) 0-2 (0-2) /hpf Urine Bacteria (Auto) None Seen (None Seen) Urine Osmolality 393 L (500-800) mOsm/kg Ur Random Sodium 53 mmol/L Urine Comment Anaplasma Smear See Comment Babesia Smear See Comment Lyme Disease Screen Negative (Negative) 09/16/24 09/16/24 09/16/24 Range/Units 14:28 16:52 17:44 WBC Cancelled 2.56 L (4.8-10.8) K/ul RBC Cancelled 3.34 L (4.20-5.40) M/uL Hgb Cancelled 10.5 L (12.0-16.0) g/dl Hct Cancelled 30.6 L (37.0-47.0) % MCV Cancelled 91.6 (80.0-100.0) fL MCH Cancelled 31.4 (25.0-34.0) pg MCHC Cancelled 34.3 (32.0-36.0) g/dL RDW Std Deviation Cancelled 41.6 (36.4-46.3) fL RDW Coeff of Geri Cancelled 12.4 (11.5-14.5) % Plt Count Cancelled 74 L (130-400) K/uL MPV Cancelled 11.0 (9.4-12.4) fL Immature Gran % (Auto) % Neut % (Auto) % Lymph % (Auto) % [place] % (Auto) % Eos % (Auto) % Baso % (Auto) % Neut # (Auto) (1.40-6.50) K/uL Lymph # (Auto) (1.20-3.40) K/uL [place] # (Auto) (0.11-0.59) K/uL Eos # (Auto) (0.00-0.50) K/uL Baso # (Auto) (0.00-0.20) K/uL Immature Gran # (Auto) (0.01-0.20) K/uL Absolute Nucleated RBC Cancelled Nucleated RBC % (auto) Cancelled Platelet Estimate Cancelled (Normal) Giant Platelets PT (9.0-12.0) Seconds INR (0.9-1.1) Sodium TNP (136-145) mmol/L Potassium TNP (3.5-5.1) mmol/L Chloride 102 (98-107) mmol/L Carbon Dioxide 20 L (21-32) mmol/L Anion Gap TNP (3-11) BUN 10 (6-23) mg/dl Creatinine 0.87 (0.6-1.2) mg/dl Est Cr Clr Drug Dosing 53.0 ml/min eGFR 69.44 BUN/Creatinine Ratio 11.5 (10-20) Glucose 109 H (70-99(Fasting)) mg/dl Osmolality (280-300) mOsm/kg Lactate (0.4-2.0) mmol/L Calcium 7.1 L (8.6-10.3) mg/dl Magnesium (1.7-2.4) mg/dl Total Bilirubin (0.2-1.0) mg/dl AST (13-39) U/L ALT (7-52) U/L Alkaline Phosphatase (34-104) U/L Total Creatine Kinase (26-192) U/L Troponin I High Sens (0-14) pg/ml C-Reactive Protein (0-0.5) mg/dl Total Protein (6.0-8.3) gm/dl Albumin (3.4-5.0) gm/dl Globulin (2.5-4.0) gm/dl Albumin/Globulin Ratio (0.9-2) Procalcitonin TSH (0.300-4.500) uIu/ml Urine Color Urine Appearance (Clear) Urine pH (4.5-7.5) Ur Specific Dil[place] (1.000-1.030) Urine Protein (Negative) Urine Glucose (UA) (Negative) Urine Ketones (Negative) Urine Blood (Negative) Urine Nitrite (Negative) Urine Bilirubin (Negative) Urine Urobilinogen (Negative) Ur Leukocyte Esterase (Negative) Urine WBC (Auto) (0-5) /hpf Urine RBC (Auto) (0-2) /hpf U Hyaline Cast (Auto) (0-2) /lpf U Epithel Cells (Auto) (0-2) /hpf Urine Bacteria (Auto) (None Seen) Urine Osmolality (500-800) mOsm/kg Ur Random Sodium mmol/L Urine Comment Anaplasma Smear Babesia Smear Lyme Disease Screen Cancelled (Negative) Administered Medications Discontinued Medications Acetaminophen (Acetaminophen 325 Mg Tab) 650 mg PO NOW STA Stop: 09/16/24 14:05 Last Admin: 09/16/24 14:25 Dose: 650 mg Documented By: KATEY Sodium Chloride (Nss) 500 mls @ 999 mls/hr IV .Q31M SHAYLA Stop: 09/16/24 14:15 Last Infusion: 09/16/24 15:53 Dose: Infused Documented By: Admin: 09/16/24 14:00 Dose: 999 mls/hr Documented By: KATEY Sodium Chloride (Nss) 500 mls @ 999 mls/hr IV .Q31M ONE Stop: 09/16/24 14:06 Last Infusion: 09/16/24 15:32 Dose: Infused Documented By: Admin: 09/16/24 14:00 Dose: 999 mls/hr Documented By: KATEY Sodium Chloride (Nss) 500 mls @ 999 mls/hr IV .Q31M ONE Stop: 09/16/24 17:08 Last Infusion: 09/16/24 17:54 Dose: Infused Documented By: Admin: 09/16/24 17:26 Dose: 999 mls/hr Documented By: KATEY Imaging Data Attestation: I personally reviewed and interpreted this imaging study as follows: My Impression: CT of the brain was obtained in the emergency department. My interpretation is no intracranial hemorrhage or mass effect, final report below. Radiologist's Impression: Cervical Spine CT 09/16/24 13:36 Exam: CT cervical spine without contrast. Reason for exam: Fall Previous studies: Plain film study cervical spine 05/09/2023. FINDINGS: There is evidence of previous surgery. Body disc prosthesis at the C5-C6 level. Marked abnormal disc space narrowing is present at C3-4 and C6/7 with endplate sclerosis and spurring. Moderate degenerative facet arthropathy is present throughout the entire mid and lower cervical spine. This does create some mild bony neural foraminal encroachments at the C4 through the C7 levels. IMPRESSION: 1. Negative for acute bony trauma. 2. Status post interbody spacer placement at C5-C6. 3. Moderately extensive degenerative spondylolisthesis at the C3 through the T1 levels with bony neural foraminal encroachments bilaterally. Electronically signed by Juan F Jones 09-16-2024 3:[address] 09/16/24 13:36 Exam: CT facial bones without contrast. Reason for exam: Fall. Previous studies: None FINDINGS: Mild diffuse mucosal thickening is seen in the maxillary and ethmoid sinuses bilaterally without air-fluid level or obstruction. Bony steen of the sinuses appear intact. The intraorbital contents appear intact. The mandible shows no evidence of acute bony trauma. This appear to be mildly depressed fracture in the distal nasal bone of uncertain age. Correlation with acute trauma recommended. Nasal septum is intact. IMPRESSION: 1. Mildly depressed fracture of the nasal bone. 2. Mild diffuse mucosal thickening in the paranasal sinuses without air-fluid level or other evidence of acute bony trauma. Electronically signed by Juan F Jones 09-16-2024 3:05 PM Pelvis X-Ray 09/16/24 13:36 Exam: X-ray pelvis one view routine. Reason for exam: Weakness and fall. Previous: 10/09/2021 FINDINGS: Limited single frontal view the pelvis shows no definite evidence of acute bony trauma. Hip joints and sacroiliac joints intact. IMPRESSION: Negative for acute bony trauma on this single limited view of the pelvis Electronically signed by Juan F Jones 09-16-2024 2:49 PM Chest X-Ray 09/16/24 13:37 Exam: Chest x-ray one view portable Reason for exam: Weakness and fall. Previous studies: 06/04/2022 FINDINGS: Cardiac size is top normal. There are areas of linear fibrosis/atelectasis in both lower lobes. Lungs are otherwise free of active infiltrate or edema. No pneumothorax or pleural effusion is seen. No surgical anchor seen in the right humeral head with widening of the right acromioclavicular space. IMPRESSION: Mild areas of linear atelectasis/fibrosis in both lower lobes. Otherwise negative for active cardiopulmonary disease. Electronically signed by Juan F Jones 09-16-2024 2:[address] 09/16/24 13:37 Exam: CT head/brain without contrast. Reason for exam: Fall. Previous study: 06/21/2024 MRI brain FINDINGS: No intracranial mass, hemorrhage or edema is evident. No midline shift, ventriculomegaly or extra-axial blood/fluid collection is indicated. Some mild diffuse symmetric lucency in the deep white matter seen compatible with the changes also present on the MRI study of 06/21/2024. Mild mucosal thickening seen in the maxillary and ethmoid sinuses bilaterally. No acute process of the bony calvarium is noted. IMPRESSION: 1. Negative for acute intracranial process on unenhanced head CT study. 2. Stable diffuse white matter lucency most compatible with chronic microvascular ischemia. 3. Mild mucosal thickening maxillary and ethmoid sinuses. Electronically signed by Juan F Jones 09-16-2024 3:01 PM Discharge Plan Visit Data Chief Complaint: Fall Stated Complaint: FALL, ECCHYMOSIS AROUND EYS & TO NOSE ED Provider: Kamlesh Bueno Discharge Problem: Acute hyponatremia, Generalized muscle weakness, Fracture closed, nasal bone, Fever of unknown origin, Pancytopenia Patient Disposition: Being Evaluated by Hospitalist Condition: Fair Forms Stand Alone Forms: My [facility] [employer] [employer] Prescriptions Prescriptions: No Action zoledronic lzlb-cptfiwyr-tlaff [Reclast] 5 mg/100 mL piggyback 5 mg IV UD Qty: 100 0RF Rx Instructions: IV INFUSE 5MG INTRAVENOUSLY OVER 15 MINUTES DIRECTED; ONCE PER YEAR. famotidine [Pepcid] 40 mg tablet 40 mg PO HS Qty: 90 3RF duloxetine 60 mg capsule,delayed release(DR/EC) 60 mg PO BID Qty: 180 1RF pravastatin 40 mg tablet 40 mg PO DAILY Qty: 90 3RF triamcinolone acetonide 0.5 % cream 1 applic topical TID PRN (Reason: skin irritation) Qty: 15 0RF calcium carbonate 600 mg calcium (1,500 mg) tablet 600 mg PO BID magnesium glycinate 100 mg magnesium capsule 400 mg PO DAILY Qty: 30 0RF riboflavin (vitamin B2) 400 mg tablet 400 mg PO DAILY propranolol 60 mg capsule,extended release 24 hr 60 mg PO DAILY Qty: 90 3RF mirtazapine [Remeron] 15 mg tablet 15 mg PO HS Qty: 30 5RF lorazepam [Ativan] 0.5 mg tablet 0.5 mg PO Q8H PRN (Reason: anxiety) Qty: 10 0RF diclofenac sodium [Voltaren Arthritis Pain] 1 % gel 2 g topical QID PRN (Reason: Pain) alum-mag hydroxide-simeth [Mylanta Maximum Strength] 400-400-40 mg/5 mL suspension 5 ml PO QID PRN (Reason: Indigestion) cyanocobalamin (vitamin B-12) 2,500 mcg tablet 2,500 mcg PO QAM diclofenac sodium 1 % Gel 2 g TOPICAL QID PRN (Reason: Pain) Rx Instructions: apply to single elbow, wrist or hand; for hand includes palm/fingers/back of hand levothyroxine 75 mcg Tablet 75 mcg PO .5XW/UD Rx Instructions: take this med Tuesday thru Tuesday pantoprazole 40 mg tablet,delayed release (DR/EC) 40 mg PO BID Referrals Referrals: Cris Campos DO [Primary Care Provider] -
[2024-09-16] MEDS: SODIUM CHLORIDE 0.9% 500 ML IV SCH (14:00)
[2024-09-16] MEDS: SODIUM CHLORIDE 0.9% 500 ML IV ONE ×2 (14:00→17:26)
[2024-09-16 14:03] LABS: INR 0.9 (0.9-1.1); Prothrombin Time 10.3 Seconds (9.0-12.0)
[2024-09-16 14:14] LABS: Alanine Aminotransferase 42.0 U/L (7-52); Albumin Globulin Ratio 1.4 (0.9-2); Alkaline Phosphatase 44.0 U/L (34-104); Anion Gap 6.0 (3-11); Bilirubin,Total 0.6 mg/dl (0.2-1.0); Blood Urea Nitrogen 10.0 mg/dl (6-23); Calcium 8.0 mg/dl (8.6-10.3); Carbon Dioxide 24.0 mmol/L (21-32); Chloride 97.0 mmol/L (98-107); Creatine Kinase 174.0 U/L (26-192); Creatinine Clr Calc Pharmacy 48.0 ml/min; Globulin 2.6 gm/dl (2.5-4.0); Glucose 119.0 mg/dl (70-99(Fasting)); Magnesium 1.8 mg/dl (1.7-2.4); Potassium 4.0 mmol/L (3.5-5.1); Sodium 127.0 mmol/L (136-145); Total Protein 6.3 gm/dl (6.0-8.3)
[2024-09-16 14:19] LABS: Appearance Urine Clear (Clear); Bacteria Urine Automated None Seen (None Seen); Cast Urine Automated 0-2 /lpf (0-2); Epithelial Cell Urine Auto 0-2 /hpf (0-2); Glucose Urine UA Negative (Negative); RBC Urine Automated 0-2 /hpf (0-2); WBC Urine Automated 0-5 /hpf (0-5)
[2024-09-16 14:20] LABS: Giant Platelets 1+; Hematocrit (blood only) 33.0 % (37.0-47.0); Hemoglobin 11.5 g/dl (12.0-16.0); Immature Granulocytes # (auto) 0.02 K/uL (0.01-0.20); Immature Granulocytes % (auto) 0.6 %; Mean Corpuscular Hemoglobin 31.4 pg (25.0-34.0); Mean Corpuscular Volume 90.2 fL (80.0-100.0); Platelet Count 81 K/uL (130-400); RDW Standard Deviation 40.3 fL (36.4-46.3); Red Blood Count 3.66 M/uL (4.20-5.40); White Blood Count 3.21 K/ul (4.8-10.8)
[2024-09-16] MEDS: ACETAMINOPHEN 325 MG TAB PO STA (14:25)
[2024-09-16 14:31] LABS: Thyroid Stimulating Hormone 0.706 uIu/ml (0.300-4.500)
--- NOTE | 2024-09-16 14:48 | XRay Report ---
Exam: Chest x-ray one view portable Reason for exam: Weakness and fall. Previous studies: 06/04/2022 FINDINGS: Cardiac size is top normal. There are areas of linear fibrosis/atelectasis in both lower lobes. Lungs are otherwise free of active infiltrate or edema. No pneumothorax or pleural effusion is seen. No surgical anchor seen in the right humeral head with widening of the right acromioclavicular space. IMPRESSION: Mild areas of linear atelectasis/fibrosis in both lower lobes. Otherwise negative for active cardiopulmonary disease. Electronically signed by Juan F Jones 09-16-2024 2:48 PM
--- NOTE | 2024-09-16 14:49 | XRay Report ---
Exam: X-ray pelvis one view routine. Reason for exam: Weakness and fall. Previous: 10/09/2021 FINDINGS: Limited single frontal view the pelvis shows no definite evidence of acute bony trauma. Hip joints and sacroiliac joints intact. IMPRESSION: Negative for acute bony trauma on this single limited view of the pelvis Electronically signed by Juan F Jones 09-16-2024 2:49 PM
--- NOTE | 2024-09-16 15:02 | CT Scan Report ---
Exam: CT head/brain without contrast. Reason for exam: Fall. Previous study: 06/21/2024 MRI brain FINDINGS: No intracranial mass, hemorrhage or edema is evident. No midline shift, ventriculomegaly or extra-axial blood/fluid collection is indicated. Some mild diffuse symmetric lucency in the deep white matter seen compatible with the changes also present on the MRI study of 06/21/2024. Mild mucosal thickening seen in the maxillary and ethmoid sinuses bilaterally. No acute process of the bony calvarium is noted. IMPRESSION: 1. Negative for acute intracranial process on unenhanced head CT study. 2. Stable diffuse white matter lucency most compatible with chronic microvascular ischemia. 3. Mild mucosal thickening maxillary and ethmoid sinuses. Electronically signed by Juan F Jones 09-16-2024 3:01 PM
--- NOTE | 2024-09-16 15:06 | CT Scan Report ---
Exam: CT facial bones without contrast. Reason for exam: Fall. Previous studies: None FINDINGS: Mild diffuse mucosal thickening is seen in the maxillary and ethmoid sinuses bilaterally without air-fluid level or obstruction. Bony steen of the sinuses appear intact. The intraorbital contents appear intact. The mandible shows no evidence of acute bony trauma. This appear to be mildly depressed fracture in the distal nasal bone of uncertain age. Correlation with acute trauma recommended. Nasal septum is intact. IMPRESSION: 1. Mildly depressed fracture of the nasal bone. 2. Mild diffuse mucosal thickening in the paranasal sinuses without air-fluid level or other evidence of acute bony trauma. Electronically signed by Juan F Jones 09-16-2024 3:05 PM
--- NOTE | 2024-09-16 15:10 | CT Scan Report ---
Exam: CT cervical spine without contrast. Reason for exam: Fall Previous studies: Plain film study cervical spine 05/09/2023. FINDINGS: There is evidence of previous surgery. Body disc prosthesis at the C5-C6 level. Marked abnormal disc space narrowing is present at C3-4 and C6/7 with endplate sclerosis and spurring. Moderate degenerative facet arthropathy is present throughout the entire mid and lower cervical spine. This does create some mild bony neural foraminal encroachments at the C4 through the C7 levels. IMPRESSION: 1. Negative for acute bony trauma. 2. Status post interbody spacer placement at C5-C6. 3. Moderately extensive degenerative spondylolisthesis at the C3 through the T1 levels with bony neural foraminal encroachments bilaterally. Electronically signed by Juan F Jones 09-16-2024 3:10 PM
[2024-09-16 15:14] LABS: Procalcitonin 0.62 ng/ml (0-0.5)
[2024-09-16 16:16] LABS: Lyme Screen Rflx Confirmation Negative (Negative)
[2024-09-16] MEDS ORDERED: TRIAMCINOLONE ACET 0.5% CR 15 GM TUBE TOP PRN (16:26)
[2024-09-16] MEDS ORDERED: LORazepam 0.5 MG TAB PO PRN (16:26)
--- NOTE | 2024-09-16 17:36 | History & Physical Report ---
Date of Service September 16, 2024 Assessment & Plan (1) Generalized muscle weakness: Plan: -CT head negative -Tick borne illness panel sent -may be 2nd to hyponatremia -if symptoms persistent despite corrected Na+, consider neurology consult -PT/OT (2) Hyponatremia: Plan: -Na+127, with serum osm 268,urine osm 393, urine Na+53 -possible SIADH -fluid restriction -NS IVF given in ER -nephrology consulted (3) Hypothyroidism: Plan: -levothyxroxine (4) Hyperlipidemia: Plan: -pravastatin (5) Mosqueda's esophagus: Plan: -Protonix BID (6) Anxiety: Plan: -lorazepam (7) Depression: Plan: -duloxetine Plan Heparin SQ for DVT px History of Present Illness Chief Complaint: Generalized weakness Primary Care Provider: Cris Campos DO Pt is a 74 y/o female with pmh of HLD, Mosqueda's esophagus, hypothyroidism, depression, anxiety, presents with progressively worsening generalized weakness with resulting fall yesterday in which she struck her face. Pt states her symptoms have been over the past 1 1/2 weeks. She her stated that she has not been steady on her feet for months. [place], but denies any recent tick bites. In the ER her CT head and facial showed mild nasal fracture otherwise no acute pathology. Her labs showed a Na+127, with serum osm 268,urine osm 393, urine Na+53. Her UA was negative for UTI. Tick borne illness pannel was sent.Pt was started on IVF, and will be admitted for further work up and treamtent of her generalized weakness and hyponatremia. Allergies Allergy/AdvReac Type Severity Reaction Status Date / Time latex Allergy Intermediate Rash Verified 09/16/24 16:55 morphine Allergy Intermediate Rash, Verified 09/16/24 16:55 fever, nausea nickel Allergy Intermediate Blister Verified 09/16/24 16:55 gluten Allergy Unknown celiac Verified 09/16/24 16:55 disease simvastatin Allergy Unknown Unknown Verified 09/16/24 16:55 sumatriptan AdvReac Intermediate Nausea Verified 09/16/24 16:55 Home Medications Medication Instructions Recorded Confirmed Type calcium carbonate 600 mg PO BID 11/20/20 09/16/24 History cyanocobalamin (vitamin B-12) 2,500 mcg PO QAM 07/08/21 09/16/24 History 2,500 mcg tablet triamcinolone acetonide 0.5 % 1 applic topical TID PRN skin 08/21/21 09/16/24 Rx topical cream irritation #15 grams diclofenac sodium 1 % topical gel 2 g topical QID PRN Pain 12/31/21 09/13/24 History (Voltaren Arthritis Pain) zoledronic acid 5 mg/100 mL in 5 mg IV UD #100 mL 03/08/23 09/16/24 Rx mannitol 5 %-water intravenous piggybck (Reclast) magnesium glycinate 400 mg (4 x 100 mg magnesium) PO 04/20/23 09/16/24 Rx DAILY #30 caps famotidine 40 mg tablet (Pepcid) 40 mg PO HS #90 tabs 04/13/24 09/16/24 Rx duloxetine 60 mg capsule,delayed 60 mg PO BID #180 caps 04/19/24 09/16/24 Rx release propranolol 60 mg capsule,24 60 mg PO DAILY #90 caps 05/21/24 09/16/24 Rx hr,extended release riboflavin (vitamin B2) 400 mg 400 mg PO DAILY 05/21/24 09/16/24 History tablet aluminum-mag hydroxide-simethicone 5 ml PO QID PRN Indigestion 06/08/24 09/16/24 History 400 mg-400 mg-40 mg/5 mL oral susp (Mylanta Maximum Strength) prochlorperazine maleate 5 mg 5 mg PO Q8H PRN anxiety #20 tabs 06/08/24 09/13/24 Rx tablet (Compazine) pravastatin 40 mg tablet 40 mg PO DAILY #90 tabs 06/26/24 09/16/24 Rx mirtazapine 15 mg tablet (Remeron) 15 mg PO HS #30 tabs 09/13/24 09/16/24 Rx lorazepam 0.5 mg tablet (Ativan) 0.5 mg PO Q8H PRN anxiety #10 tabs 09/14/24 09/16/24 Rx diclofenac sodium 1 % topical gel 2 g topical QID PRN Pain 09/16/24 09/16/24 History levothyroxine 75 mcg tablet 75 mcg PO .5XW/UD 09/16/24 09/16/24 History pantoprazole 40 mg tablet,delayed 40 mg PO BID 09/16/24 09/16/24 History release Past Med/Surg History Problem List (Updated 09/16/24 @ 17:29 by Sujit Hurd MD) Generalized muscle weakness Hyponatremia Depression Iron deficiency Prediabetes Migraine without aura Facet arthropathy, cervical Mild mitral regurgitation Cervical radiculopathy Anxiety Esophageal obstruction Vitamin D deficiency Atrophic vaginitis Positive VINCENT (antinuclear antibody) Hypothyroidism Celiac disease Osteoporosis Insomnia Occipital neuralgia of left side Chronic daily headache Small fiber neuropathy Other cervical disc degeneration at C5-C6 level Hyperlipidemia Cervical stenosis of spine Gastroparesis Irritable bowel syndrome with constipation Mosqueda's esophagus Chronic rhinitis Medical History Neck pain on left side Pain in right shoulder Trigger point of abdomen Burning sensation of feet Family history of coronary artery disease Dyspnea on exertion Dysphagia History of anesthesia complications "woke up shaking uncontrollably and stuttering." Hx of chest pain 12/10/2021, "woke up with chest pain, taken to [facility] ER, spent night in hospital; found pain to be from my stomach and acid reflux, and esophagus." History of COVID-19 late fall 2019, test at [facility], not hosp; ear pain, sore throat, cough, congestion, fatigue>resolve. Choledocholithiasis follows with [facility], upcoming procedure 06/26/22 Pancreatitis post ERCP (06/09/21) Nausea with headaches daily. following with [facility] Peripheral neuropathy feet Celiac disease Hypothyroidism Osteoporosis GERD (gastroesophageal reflux disease) controlled, stable per pt Surgical History Hx of cervical spine surgery (05/2022) C5-6 anterior decompression and disc arthroplasty 06/22/22 Hx of right cataract extraction History of radiofrequency ablation (RFA) of nerve of cervical spine S/P epidural steroid injection S/P ERCP 07/09/21 Dr. Isra Woodson- ERCP- Balloon extraction of choledocholithiasis, Biliary tree swept of sludge History of cardiac cath 2013, [facility] [place], no stents> "Normal coronary arteries" S/P ERCP (06/10/21) d/t post ERCP pancreatitis, noted sludge/blood in CBD, stent placed S/P ERCP (06/09/21) d/t CBD stone --> pt woke up from initial ERCP in [place] shaking uncontrollably, stuttering. Dr Woodson sent patient to ER at [facility] where she then had the second ERCP with stent the following day without trouble. S/P eye surgery macular hole repair S/P rotator cuff surgery R shoulder x 2, 2006, 2008 H/O: hysterectomy NISH S/P foot surgery left bunionectomy S/P cholecystectomy S/P appendectomy History of [place] fundoplication Family History Brother Lung cancer Brain tumor Mother Colorectal cancer Liver cancer Sister Diabetes Breast cancer FH: stomach cancer Father Myocardial infarction Brother Bladder cancer Other Cervical stenosis of spine Denies family history of Ovarian cancer Prostate cancer Social History Smoking Status: Never smoker Second Hand Exposure: No; Do You Dip or Chew Tobacco: No; Hx Alcohol Use: No Hx Substance Use: No Preferred Language: Luxembourgish Communication Ability: Effective Visual Impairment: No Limitations Hearing Ability: Hard of Hearing Demand Planning Manager Required: No Beliefs That Will Affect Care: None marital status: Current Living Situation: Spouse current occupational status: retired Feels Safe at Home: Yes Childhood Exposure to Second-Hand Smoke: No Diet: gluten free caffeine: No during the past year weight has: remained stable Dental Care, Regularly: No Physical Activity Frequency: 5-6 Times per Week Seatbelt Use: always Sunscreen Use: Yes Assistive Devices: None Review of Systems Review of Systems: CONST: generalized weakness HENT: periorbital ecchymosis EYES: Negative for discharge/pain or vision changes. RESP: Negative for cough/hemoptysis and shortness of breath. CV: Negative chest pain, difficulty breathing, palpitations. ABD: Negative pain, nausea, vomiting. : Negative increase frequency, dysuria, blood in urine or stool. MUSC: Negative for muscle aches, edema. SKIN: Negative rash, lesions/sores. NEURO: Negative headache, dizziness, weakness. Physical Exam Physical Exam: GENERAL APPEARANCE NAD, activity normal for age, well developed/ well nourished, no cyanosis, pallor, or diaphoresis. EYES lids/conjunctiva normal. EARS/NOSE/THROAT Mucous membranes moist, nares normal, lips/teeth normal uvula midline without oral pharyngeal erythema, exudate or swelling TMs normal bilaterally. No lymphangitis/lymphedema. HEAD/NECK periorbital ecchymosis RESPIRATORY respiratory effort normal, speaks in full sentences, no tripod position, no accessory muscle use. Lungs clear to auscultation without rhonchi, wheezes, rales CARDIAC Regular rate and rhythm, no edema. ABDOMINAL Soft, ND/NT. No evidence of fluid wave. No pulsatile masses on exam, rebound tenderness, Gomez sign or pain over Mcburney's point. MUSCLES/EXTREMITIES No abnormal range of motion, no swelling. SKIN Warm, pink and dry. No rashes, dermatoses, petechiae or lesions. NEUROLOGICAL Speech is clear and appropriate. Normal level of consciousness. Gait and coordination are normal. 5/5 strength in all extremities. PSYCH Normal mood and affect. Judgement/competence is appropriate Results & Data Results & Data Vital Signs (Past 12 Hours) Vital Signs Temp Pulse Pulse Resp BP BP Pulse Ox 09/16/24 16:30 66 12 91/47 L 94 09/16/24 15:52 69 09/16/24 15:30 37.2 C 66 20 118/59 L 94 09/16/24 14:23 70 21 124/61 96 09/16/24 13:37 98 09/16/24 13:30 38.2 C H 75 16 125/66 94 O2 Del Method 09/16/24 16:30 Room Air 09/16/24 15:52 09/16/24 15:30 Room Air 09/16/24 14:23 Room Air 09/16/24 13:37 Room Air 09/16/24 13:30 Room Air PG Care Time/CCT Total # of Minutes Spent Total Time Spent with Patient: Total time spent is greater than 50% in coordination of care (as documented) at patient's floor/unit and/or counseling patient: Coding Level of Care Code 26014 INT INP/OBS CARE 2/55MIN Diagnoses Generalized muscle weakness M62.81 Hyponatremia E87.1 Hypothyroidism E03.9 Pure hypercholesterolemia E78.00 Hyperlipidemia type: pure hypercholesterolemia Mosqueda's esophagus K22.70 Anxiety F41.9 Depression F32.A (4) Hyperlipidemia Hyperlipidemia type: pure hypercholesterolemia Qualified Code(s): E78.00 - Pure hypercholesterolemia, unspecified
[2024-09-16 17:44] LABS: Blood Urea Nitrogen 10 mg/dl (6-23); Calcium 7.1 mg/dl (8.6-10.3); Carbon Dioxide 20 mmol/L (21-32); Chloride 102 mmol/L (98-107); Creatinine Clr Calc Pharmacy 53.0 ml/min; Glucose 109 mg/dl (70-99(Fasting))
[2024-09-16 17:57] LABS: Hematocrit (blood only) 30.6 % (37.0-47.0); Hemoglobin 10.5 g/dl (12.0-16.0); Mean Corpuscular Hemoglobin 31.4 pg (25.0-34.0); Mean Corpuscular Volume 91.6 fL (80.0-100.0); Platelet Count 74 K/uL (130-400); RDW Standard Deviation 41.6 fL (36.4-46.3); Red Blood Count 3.34 M/uL (4.20-5.40); White Blood Count 2.56 K/ul (4.8-10.8)
[2024-09-16] MEDS: SODIUM CHLORIDE 0.9% 1,000 ML IV SCH (18:13)
[2024-09-16] MEDS: cefTRIAXone SODIUM 2,000 MG/50 ML BAG IV STA (18:13)
[2024-09-16 18:16] LABS: Potassium 4.0 mmol/L (3.5-5.1); Sodium 133.0 mmol/L (136-145)
[2024-09-16] MEDS: CALCIUM CARBONATE 1250MG TAB PO SCH (20:08)
[2024-09-16] MEDS: MIRTAZAPINE TAB 15 MG TAB PO SCH (20:08)
[2024-09-16] MEDS ORDERED: HEPARIN SOD 5,000 UNIT/0.5 ML VIAL SQ SCH (22:00)
[2024-09-16] MEDS: ACETAMINOPHEN 325 MG TAB PO PRN (23:50)
[2024-09-17] MEDS: LEVOTHYROXINE SODIUM 75 MCG TABLET PO SCH (05:47)
[2024-09-17 07:33] LABS: Hematocrit (blood only) 31.2 % (37.0-47.0); Hemoglobin 10.7 g/dl (12.0-16.0); Mean Corpuscular Hemoglobin 31.5 pg (25.0-34.0); Mean Corpuscular Volume 91.8 fL (80.0-100.0); Platelet Count 65 K/uL (130-400); RDW Standard Deviation 42.6 fL (36.4-46.3); Red Blood Count 3.40 M/uL (4.20-5.40); White Blood Count 3.50 K/ul (4.8-10.8)
[2024-09-17 07:50] LABS: Anion Gap 5.0 (3-11); Blood Urea Nitrogen 12.0 mg/dl (6-23); Calcium 7.6 mg/dl (8.6-10.3); Carbon Dioxide 22.0 mmol/L (21-32); Chloride 108.0 mmol/L (98-107); Creatinine Clr Calc Pharmacy 50.0 ml/min; Glucose 109.0 mg/dl (70-99(Fasting)); Potassium 4.2 mmol/L (3.5-5.1); Sodium 135.0 mmol/L (136-145)
[2024-09-17] MEDS: PRAVASTATIN SOD 40 MG TAB PO SCH (08:31)
[2024-09-17] MEDS: CYANOCOBALAMIN (B-12) 2,500 MCG TABLET PO SCH (08:31)
[2024-09-17] MEDS: PROPRANOLOL HCL 60 MG LA CAP PO SCH (08:31)
[2024-09-17] MEDS: DOXYCYCLINE HYCLATE 100 MG in DEXTROSE 5% MINI-B 100 ML IV SCH (09:18)
--- NOTE | 2024-09-17 09:50 | Nephrology Consultation ---
Date of Consultation September 17, 2024 Assessment & Plan (1) Hyponatremia: Chronic, mild to moderate. Sodium has improved at an acceptable rate (low risk for ODS). Electrolytes normal. Clinical presentation suggestive of hypovolemic hyponatremia in the setting of decreased PO intake. Sodium improved with iso tonic fluids. Volume status is now acceptable. Symptoms appear to be unrelated to dysnatremia. Encourage nutrition and oral fluids. Free water restriction will be held. Labs will be updated this afternoon. (2) Hypothyroidism: TSH acceptable. Remains on levothyroxine 75 mcg daily. (3) Generalized muscle weakness: Serology for tick-borne infection pending. Remains on doxycycline. Evaluation notable for cytopenias and fevers supporting this diagnosis. History of Present Illness Reason for Consultation: Hyponatremia Requesting Physician: Uzair Benjamin MD Attending Physician: Uzair Benjamin MD History of Present Illness Geeta is a 74 year-old female with hypothyroidism, Mosqueda's esophagus, NOAM/MDD, and hyperlipidemia who presented to [facility] yesterday with generalized weakness. She had sustained a fall with injury to her face the day prior to admission. Symptoms of weakness had been progressive over the past ~1-2 weeks. Evaluation demonstrated a nasal facture and mild to moderate hyponatremia. She was started on isotonic IVF. IV ceftriaxone was provided in the ER and then oral doxycycline started. Serology for possible tick-borne infection pending. Geeta recently completed outpatient treatment for a suspected UTI. She was found to be slightly volume depleted in the ER. Serum sodium on admission was 127 mmol/L. Sodium this AM 135 mmol/L. Metabolic profile is otherwise normal. Geeta does not have a prior history of dysnatremia. TSH was 0.7. There are no recent changes in her Rx medications. Geeta has been maintained on a 1.2 L fluid restriction. She reports dry mouth. She would like to stop her fluid restriction. She denies significant alcohol use. Allergies Allergy/AdvReac Type Severity Reaction Status Date / Time latex Allergy Intermediate Rash Verified 09/16/24 16:55 morphine Allergy Intermediate Rash, Verified 09/16/24 16:55 fever, nausea nickel Allergy Intermediate Blister Verified 09/16/24 16:55 gluten Allergy Unknown celiac Verified 09/16/24 16:55 disease simvastatin Allergy Unknown Unknown Verified 09/16/24 16:55 sumatriptan AdvReac Intermediate Nausea Verified 09/16/24 16:55 Home Medications Medication Instructions Recorded Confirmed Type calcium carbonate 600 mg PO BID 11/20/20 09/16/24 History cyanocobalamin (vitamin B-12) 2,500 mcg PO QAM 07/08/21 09/16/24 History 2,500 mcg tablet triamcinolone acetonide 0.5 % 1 applic topical TID PRN skin 08/21/21 09/16/24 Rx topical cream irritation #15 grams diclofenac sodium 1 % topical gel 2 g topical QID PRN Pain 12/31/21 09/16/24 History (Voltaren Arthritis Pain) zoledronic acid 5 mg/100 mL in 5 mg IV UD #100 mL 03/08/23 09/16/24 Rx mannitol 5 %-water intravenous piggybck (Reclast) magnesium glycinate 400 mg (4 x 100 mg magnesium) PO 04/20/23 09/16/24 Rx DAILY #30 caps famotidine 40 mg tablet (Pepcid) 40 mg PO HS #90 tabs 04/13/24 09/16/24 Rx duloxetine 60 mg capsule,delayed 60 mg PO BID #180 caps 04/19/24 09/16/24 Rx release propranolol 60 mg capsule,24 60 mg PO DAILY #90 caps 05/21/24 09/16/24 Rx hr,extended release riboflavin (vitamin B2) 400 mg 400 mg PO DAILY 05/21/24 09/16/24 History tablet aluminum-mag hydroxide-simethicone 5 ml PO QID PRN Indigestion 06/08/24 09/16/24 History 400 mg-400 mg-40 mg/5 mL oral susp (Mylanta Maximum Strength) pravastatin 40 mg tablet 40 mg PO DAILY #90 tabs 06/26/24 09/16/24 Rx mirtazapine 15 mg tablet (Remeron) 15 mg PO HS #30 tabs 09/13/24 09/16/24 Rx lorazepam 0.5 mg tablet (Ativan) 0.5 mg PO Q8H PRN anxiety #10 tabs 09/14/24 09/16/24 Rx diclofenac sodium 1 % topical gel 2 g topical QID PRN Pain 09/16/24 09/16/24 History levothyroxine 75 mcg tablet 75 mcg PO .5XW/UD 09/16/24 09/16/24 History pantoprazole 40 mg tablet,delayed 40 mg PO BID 09/16/24 09/16/24 History release Patient History Medical History Neck pain on left side Pain in right shoulder Trigger point of abdomen Burning sensation of feet Family history of coronary artery disease Dyspnea on exertion Dysphagia History of anesthesia complications "woke up shaking uncontrollably and stuttering." Hx of chest pain 12/10/2021, "woke up with chest pain, taken to [place] ER, spent night in hospital; found pain to be from my stomach and acid reflux, and esophagus." History of COVID-19 late fall 2019, test at [facility], not hosp; ear pain, sore throat, cough, congestion, fatigue>resolve. Choledocholithiasis follows with [facility], upcoming procedure 06/26/22 Pancreatitis post ERCP (06/09/21) Nausea with headaches daily. following with [facility] Peripheral neuropathy feet Celiac disease Hypothyroidism Osteoporosis GERD (gastroesophageal reflux disease) controlled, stable per pt Surgical History Hx of cervical spine surgery (05/2022) C5-6 anterior decompression and disc arthroplasty 06/22/22 Hx of right cataract extraction History of radiofrequency ablation (RFA) of nerve of cervical spine S/P epidural steroid injection S/P ERCP 07/09/21 Dr. Isra Woodson- ERCP- Balloon extraction of choledocholithiasis, Biliary tree swept of sludge History of cardiac cath 2013, [facility], no stents> "Normal coronary arteries" S/P ERCP (06/10/21) d/t post ERCP pancreatitis, noted sludge/blood in CBD, stent placed S/P ERCP (06/09/21) d/t CBD stone --> pt woke up from initial ERCP in [place] shaking uncontrollably, stuttering. Dr Woodson sent patient to ER at [facility] where she then had the second ERCP with stent the following day without trouble. S/P eye surgery macular hole repair S/P rotator cuff surgery R shoulder x 2, 2006, 2008 H/O: hysterectomy NISH S/P foot surgery left bunionectomy S/P cholecystectomy S/P appendectomy History of [place] fundoplication Family History Brother Lung cancer Brain tumor Mother Colorectal cancer Liver cancer Sister Diabetes Breast cancer FH: stomach cancer Father Myocardial infarction Brother Bladder cancer Other Cervical stenosis of spine Denies family history of Ovarian cancer Prostate cancer Social History Smoking Status: Never smoker Second Hand Exposure: No; Do You Dip or Chew Tobacco: No; Hx Alcohol Use: No Hx Substance Use: No Preferred Language: Pakistani Communication Ability: Effective Visual Impairment: No Limitations Hearing Ability: Hard of Hearing Supervisor [employer]iveries Required: No Beliefs That Will Affect Care: None marital status: Current Living Situation: Spouse current occupational status: retired Feels Safe at Home: Yes Childhood Exposure to Second-Hand Smoke: No Diet: gluten free caffeine: No during the past year weight has: remained stable Dental Care, Regularly: No Physical Activity Frequency: 5-6 Times per Week Seatbelt Use: always Sunscreen Use: Yes Assistive Devices: Glasses Review of Systems Review of Systems: All systems reviewed & are unremarkable except as noted in HPI & below Constitutional: + fever and + fatigue; no chills Cardiovascular: no edema Physical Exam Constitutional: well developed; no acute distress Eyes: no scleral abnormality and no corneal abnormality ENMT: Mouth: no oral mucosal abnormality and oral mucous membranes not dry Neck: normal visual inspection and trachea midline Respiratory: normal respiratory effort Auscultation: lungs clear to auscultation bilaterally Cardiovascular: Rate/Rhythm: regular rate Heart Sounds: normal S1 and asia l S2 Extremities: no edema Musculoskeletal: Extremities: no cyanosis and no clubbing Skin: normal turgor; no lesions Neurologic: Motor/Sensory: no tremor and no asterixis Psychiatric: Orientation: alert and oriented x 3 Results & Data Vital Signs (Past 12 Hours) Vital Signs Temp Pulse Pulse Resp BP Pulse Ox O2 Del Method 09/17/24 08:09 38.7 C H 76 20 119/63 92 Room Air 09/17/24 07:10 69 09/17/24 04:27 37.2 C 69 18 94/55 L 93 Room Air 09/16/24 22:00 38.2 C H 72 16 130/74 93 Room Air 09/16/24 21:59 70 Laboratory Results Laboratory Results - last 24 hr 0709/16/24 09/16/24 13:37 14:05 14:28 WBC 3.21 L RBC 3.66 L Hgb 11.5 L Hct 33.0 L MCV 90.2 MCH 31.4 MCHC 34.8 RDW Std Deviation 40.3 RDW Coeff of Geri 12.2 Plt Count 81 L MPV 11.0 Immature Gran % (Auto) 0.6 Neut % (Auto) 72.6 Lymph % (Auto) 15.9 Holt % (Auto) 10.3 Eos % (Auto) 0.0 Baso % (Auto) 0.6 Neut # (Auto) 2.33 Lymph # (Auto) 0.51 L Holt # (Auto) 0.33 Eos # (Auto) 0.00 Baso # (Auto) 0.02 Immature Gran # (Auto) 0.02 Absolute Nucleated RBC Nucleated RBC % (auto) Platelet Estimate Decreased L Giant Platelets 1+ Peripher Smr Path Cons PT 10.3 INR 0.9 Sodium 127 L Potassium 4.0 Chloride 97 L Carbon Dioxide 24 Anion Gap 6 BUN 10 Creatinine 0.96 Est Cr Clr Drug Dosing 48.0 eGFR 61.70 BUN/Creatinine Ratio 10.4 Glucose 119 H Osmolality 268 L Lactate 1.2 Calcium 8.0 L Magnesium 1.8 Total Bilirubin 0.6 AST 54 H ALT 42 Alkaline Phosphatase 44 Total Creatine Kinase 174 Troponin I High Sens 6.6 C-Reactive Protein 8.40 H Total Protein 6.3 Albumin 3.7 Globulin 2.6 Albumin/Globulin Ratio 1.4 Procalcitonin Cancelled 0.62 H TSH 0.706 Urine Color Yellow Urine Appearance Clear Urine pH 6.0 Ur Specific [place] 1.013 Urine Protein 1+ H Urine Glucose (UA) Negative Urine Ketones Trace H Urine Blood Trace H Urine Nitrite Negative Urine Bilirubin Negative Urine Urobilinogen Negative Ur Leukocyte Esterase Negative Urine WBC (Auto) 0-5 Urine RBC (Auto) 0-2 U Hyaline Cast (Auto) 0-2 U Epithel Cells (Auto) 0-2 Urine Bacteria (Auto) None Seen Urine Osmolality 393 L Ur Random Sodium 53 Urine Comment Anaplasma Smear See Comment A. phagocytophilum DNA Babesia Smear See Comment Babesia microti DNA PCR Lyme Disease Screen Negative Ehrlichia DNA (PCR) Q Fever Phase I IgG Ab Q Fever Phase I IgM Ab Q Fever Phase II IgG Ab Q Fever Phase II IgM Ab Rickettsia IgG Ab Rickettsia IgM Ab Typhus Fever IgG Ab Typhus Fever IgM Ab 09/16/24 09/16/24 09/16/24 14:28 15:48 16:52 WBC Cancelled RBC Cancelled Hgb Cancelled Hct Cancelled MCV Cancelled MCH Cancelled MCHC Cancelled RDW Std Deviation Cancelled RDW Coeff of Geri Cancelled Plt Count Cancelled MPV Cancelled Immature Gran % (Auto) Neut % (Auto) Lymph % (Auto) Holt % (Auto) Eos % (Auto) Baso % (Auto) Neut # (Auto) Lymph # (Auto) Holt # (Auto) Eos # (Auto) Baso # (Auto) Immature Gran # (Auto) Absolute Nucleated RBC Cancelled Nucleated RBC % (auto) Cancelled Platelet Estimate Cancelled Giant Platelets Peripher Smr Path Cons PT INR Sodium TNP Potassium TNP Chloride 102 Carbon Dioxide 20 L Anion Gap TNP BUN 10 Creatinine 0.87 Est Cr Clr Drug Dosing 53.0 eGFR 69.44 BUN/Creatinine Ratio 11.5 Glucose 109 H Osmolality Lactate Calcium 7.1 L Magnesium Total Bilirubin AST ALT Alkaline Phosphatase Total Creatine Kinase Troponin I High Sens C-Reactive Protein Total Protein Albumin Globulin Albumin/Globulin Ratio Procalcitonin TSH Urine Color Urine Appearance Urine pH Ur Specific [place] Urine Protein Urine Glucose (UA) Urine Ketones Urine Blood Urine Nitrite Urine Bilirubin Urine Urobilinogen Ur Leukocyte Esterase Urine WBC (Auto) Urine RBC (Auto) U Hyaline Cast (Auto) U Epithel Cells (Auto) Urine Bacteria (Auto) Urine Osmolality Ur Random Sodium Urine Comment Anaplasma Smear A. phagocytophilum DNA Pending Babesia Smear Babesia microti DNA PCR Pending Lyme Disease Screen Cancelled Ehrlichia DNA (PCR) Pending Q Fever Phase I IgG Ab Pending Q Fever Phase I IgM Ab Pending Q Fever Phase II IgG Ab Pending Q Fever Phase II IgM Ab Pending Rickettsia IgG Ab Pending Rickettsia IgM Ab Pending Typhus Fever IgG Ab Pending Typhus Fever IgM Ab Pending 09/16/24 09/17/24 17:44 07:04 WBC 2.56 L 3.50 L RBC 3.34 L 3.40 L Hgb 10.5 L 10.7 L Hct 30.6 L 31.2 L MCV 91.6 91.8 MCH 31.4 31.5 MCHC 34.3 34.3 RDW Std Deviation 41.6 42.6 RDW Coeff of Geri 12.4 12.7 Plt Count 74 L 65 L MPV 11.0 11.6 Immature Gran % (Auto) Neut % (Auto) Lymph % (Auto) Holt % (Auto) Eos % (Auto) Baso % (Auto) Neut # (Auto) Lymph # (Auto) Holt # (Auto) Eos # (Auto) Baso # (Auto) Immature Gran # (Auto) Absolute Nucleated RBC Nucleated RBC % (auto) Platelet Estimate Giant Platelets Peripher Smr Path Cons PT INR Sodium 133 L 135 L Potassium 4.0 4.2 Chloride 108 H Carbon Dioxide 22 Anion Gap 5 BUN 12 Creatinine 0.84 Est Cr Clr Drug Dosing 50.0 eGFR 72.42 BUN/Creatinine Ratio 14.3 Glucose 109 H Osmolality Lactate Calcium 7.6 L Magnesium Total Bilirubin AST ALT Alkaline Phosphatase Total Creatine Kinase Troponin I High Sens C-Reactive Protein Total Protein Albumin Globulin Albumin/Globulin Ratio Procalcitonin TSH Urine Color Urine Appearance Urine pH Ur Specific [place] Urine Protein Urine Glucose (UA) Urine Ketones Urine Blood Urine Nitrite Urine Bilirubin Urine Urobilinogen Ur Leukocyte Esterase Urine WBC (Auto) Urine RBC (Auto) U Hyaline Cast (Auto) U Epithel Cells (Auto) Urine Bacteria (Auto) Urine Osmolality Ur Random Sodium Urine Comment Anaplasma Smear A. phagocytophilum DNA Babesia Smear Babesia microti DNA PCR Lyme Disease Screen Ehrlichia DNA (PCR) Q Fever Phase I IgG Ab Q Fever Phase I IgM Ab Q Fever Phase II IgG Ab Q Fever Phase II IgM Ab Rickettsia IgG Ab Rickettsia IgM Ab Typhus Fever IgG Ab Typhus Fever IgM Ab Diagnostic Findings Chest x-ray one view portable Previous studies: 06/04/2022 FINDINGS: Cardiac size is top normal. There are areas of linear fibrosis/atelectasis in both lower lobes. Lungs are otherwise free of active infiltrate or edema. No pneumothorax or pleural effusion is seen. No surgical anchor seen in the right humeral head with widening of the right acromioclavicular space. IMPRESSION: Mild areas of linear atelectasis/fibrosis in both lower lobes. PG Care Time/CCT Total # of Minutes Spent Total Time Spent with Patient: Total time spent is greater than 50% in coordination of care (as documented) at patient's floor/unit and/or counseling patient: Coding Level of Care Code 21017 OFFICE CONSULT LVL 4/40M Diagnoses Hyponatremia E87.1 Hypothyroidism E03.9 Generalized muscle weakness M62.81
--- NOTE | 2024-09-17 11:30 | Hospitalist Progress Note ---
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 Subsequent review of blood smear updated, positive for Anaplasma Febrile 38.7 at time of bedside visit. Patient feels fatigued. PT/OT recommending return home with home health PT. Given fever, weakness and fall risk would treat with doxycycline today and evaluate fever curve and strength for potential return home on oral 09/18. While she is able to ambulate well with PT she appears weak, has just been started on coverage for Anaplasma, and has had significant falls with facial injury she would benefit from conservative management to prevent risk of fall/readmission. -Hyponatremia improved (2) Hyponatremia: Plan: -Na+127, with serum osm 268,urine osm 393, urine Na+53 on admission Hyponatremia improved with volume resuscitation, consistent with hypovolemic hyponatremia rather than SIADH although urine sodium is elevated Fluid restriction liberated Trend BMP daily (3) Hypothyroidism: Plan: -levothyxroxine (4) Hyperlipidemia: Plan: -pravastatin (5) Mosqueda's esophagus: Plan: -Protonix BID (6) Anxiety: Plan: -lorazepam (7) Depression: Plan: -duloxetine Plan Heparin SQ for DVT px Admission and Anticipated Discharge Date Admission Date: September 16, 2024 Subjective Seen the bedside Still feels weak, tired. Febrile overnight No cough Eating/drinking okay Denies chest pain, chest pressure. Denies dysuria. No abdominal pain. She is very thirsty Physical Exam Physical Exam: General: A&Ox3. NAD. Cooperative. HEENT: Periorbital and nasal bridge ecchymoses present. No active bleeding Pulm: CTAB A&P. -wheezes, -rales, -rhonchi. Symmetrical chest rise. No increase in work of breathing. No respiratory distress. Cardiac: RRR, -mrg. Radial pulses intact and symmetrical. Abdominal: Nontender, nondistended, soft. BS present. Extremities: Moves all extremities equally Results & Data Results & Data Vital Signs (Past 12 Hours) Vital Signs Temp Pulse Pulse Resp BP Pulse Ox O2 Del Method 09/17/24 08:09 38.7 C H 76 20 119/63 92 Room Air 09/17/24 07:10 69 09/17/24 04:27 37.2 C 69 18 94/55 L 93 Room Air PG Care Time/CCT Total # of Minutes Spent Total Time Spent with Patient: Total time spent is greater than 50% in coordination of care (as documented) at patient's floor/unit and/or counseling patient: Coding Level of Care Code 32816 SUB INP/OBS CARE 3/50MIN Diagnoses Generalized muscle weakness M62.81 Hyponatremia E87.1 Hypothyroidism E03.9 Pure hypercholesterolemia E78.00 Hyperlipidemia type: pure hypercholesterolemia Mosqueda's esophagus K22.70 Anxiety F41.9 Depression F32.A (4) Hyperlipidemia Hyperlipidemia type: pure hypercholesterolemia Qualified Code(s): E78.00 - Pure hypercholesterolemia, unspecified
--- NOTE | 2024-09-17 13:51 | Electrocardiogram Report ---
Test Reason : Blood Pressure : */* mmHG Vent. Rate : 74 BPM Atrial Rate : 74 BPM P-R Int : 184 ms QRS Dur : 66 ms QT Int : 384 ms P-R-T Axes : 51 8 55 degrees QTcB Int : 426 ms Normal sinus rhythm Normal ECG When compared with ECG of 11-Dec-2021 09:00, ST depression has replaced ST elevation in Inferior leads Confirmed by Leander Dockery ([id number]) on 09/17/2024 1:50:53 PM Referred By: Confirmed By: Leander Dockery
[2024-09-17 15:20] LABS: Anion Gap 9.0 (3-11); Blood Urea Nitrogen 12.0 mg/dl (6-23); Calcium 7.7 mg/dl (8.6-10.3); Carbon Dioxide 17.0 mmol/L (21-32); Chloride 102.0 mmol/L (98-107); Creatinine Clr Calc Pharmacy 46.6 ml/min; Glucose 165.0 mg/dl (70-99(Fasting)); Potassium 3.6 mmol/L (3.5-5.1); Sodium 128.0 mmol/L (136-145)
[2024-09-17] MEDS: SODIUM CHLORIDE 1 GM TABLET PO STA (18:10)
[2024-09-17] MEDS: SODIUM BICARBONATE 650 MG TAB PO SCH (20:21)
[2024-09-18 06:56] LABS: Anion Gap 5.0 (3-11); Blood Urea Nitrogen 12.0 mg/dl (6-23); Calcium 7.5 mg/dl (8.6-10.3); Carbon Dioxide 24.0 mmol/L (21-32); Chloride 107.0 mmol/L (98-107); Creatinine Clr Calc Pharmacy 55.2 ml/min; Glucose 100.0 mg/dl (70-99(Fasting)); Potassium 3.6 mmol/L (3.5-5.1); Sodium 136.0 mmol/L (136-145)
[2024-09-18 07:11] LABS: Hematocrit (blood only) 27.1 % (37.0-47.0); Hemoglobin 9.6 g/dl (12.0-16.0); Mean Corpuscular Hemoglobin 31.8 pg (25.0-34.0); Mean Corpuscular Volume 89.7 fL (80.0-100.0); Platelet Count 79 K/uL (130-400); RDW Standard Deviation 42.7 fL (36.4-46.3); Red Blood Count 3.02 M/uL (4.20-5.40); White Blood Count 4.76 K/ul (4.8-10.8)
[2024-09-18 07:53] LABS: Immature Granulocytes # (auto) 0.03 K/uL (0.01-0.20); Immature Granulocytes % (auto) 0.6 %
--- NOTE | 2024-09-18 09:56 | Nephrology Progress Note ---
Date of Service September 18, 2024 Assessment & Plan (1) Hyponatremia: Plan: Chronic, mild to moderate. Sodium initially improved acceptably with isotonic fluids consistent with hypovolemic hyponatremia. Unfortunately, it dropped once free water restriction was held. Findings support some degree of underlying SIADH (this may be transient). Electrolytes normal otherwise. Sodium is now improving following oral salt as well as restring a 1.5 L free water restriction . Volume status is now acceptable. Encourage nutrition and limit free water to 1.5 L daily. Repeat labs tomorrow AM. (2) Hypothyroidism: Plan: TSH acceptable. Remains on levothyroxine 75 mcg daily. (3) Generalized muscle weakness: Plan: Remains on doxycycline. Admission and Anticipated Discharge Date Admission Date: September 16, 2024 Subjective No acute events overnight. Geeta feels well this AM. She told me that she hopes to be discharged home tomorrow. She continues to endorse some dry mouth. Sodium dropped yesterday and oral sodium was provided with a free water restriction. Geeta tolerated this well. Sodium improving. Appetite is good. No fluid retention or edema. Review of Systems Review of Systems: All systems reviewed & are unremarkable except as noted in HPI & below Physical Exam Constitutional: well developed; no acute distress Eyes: no scleral abnormality and no corneal abnormality ENMT: Mouth: no oral mucosal abnormality and oral mucous membranes not dry Neck: normal visual inspection and trachea midline Respiratory: normal respiratory effort Auscultation: lungs clear to auscultation bilaterally Cardiovascular: Rate/Rhythm: regular rate Heart Sounds: normal S1 and normal S2 Extremities: no edema Musculoskeletal: Extremities: no cyanosis and no clubbing Skin: normal turgor; no lesions Neurologic: Motor/Sensory: no tremor and no asterixis Psychiatric: Orientation: alert and oriented x 3 Results & Data Vital Signs (Past 12 Hours) Vital Signs Temp Pulse Resp BP BP Pulse Ox O2 Del Method 09/18/24 08:09 36.5 C 75 18 164/100 H 94 Room Air 09/18/24 03:37 36.7 C 63 16 105/61 91 Room Air 09/17/24 23:59 36.5 C 64 16 106/63 90 Room Air Laboratory Results Laboratory Results - last 24 hr 09/17/24 09/17/24 09/18/24 14:43 23:02 06:02 WBC 4.76 L RBC 3.02 L Hgb 9.6 L Hct 27.1 L MCV 89.7 MCH 31.8 MCHC 35.4 RDW Std Deviation 42.7 RDW Coeff of Geri 12.9 Plt Count 79 L MPV 11.1 Immature Gran % (Auto) 0.6 Neut % (Auto) 52.5 Lymph % (Auto) 30.5 Ida % (Auto) 15.8 Eos % (Auto) 0.2 Baso % (Auto) 0.4 Neut # (Auto) 2.50 Lymph # (Auto) 1.45 Ida # (Auto) 0.75 H Eos # (Auto) 0.01 Baso # (Auto) 0.02 Immature Gran # (Auto) 0.03 Sodium 128 L 133 L 136 Potassium 3.6 3.6 Chloride 102 107 Carbon Dioxide 17 L 24 Anion Gap 9 5 BUN 12 12 Creatinine 0.90 0.76 Est Cr Clr Drug Dosing 46.6 55.2 eGFR 66.67 81.67 BUN/Creatinine Ratio 13.3 15.8 Glucose 165 H 100 H POC Glucose Calcium 7.7 L 7.5 L 09/18/24 07:17 WBC RBC Hgb Hct MCV MCH MCHC RDW Std Deviation RDW Coeff of Geri Plt Count MPV Immature Gran % (Auto) Neut % (Auto) Lymph % (Auto) Ida % (Auto) Eos % (Auto) Baso % (Auto) Neut # (Auto) Lymph # (Auto) Ida # (Auto) Eos # (Auto) Baso # (Auto) Immature Gran # (Auto) Sodium Potassium Chloride Carbon Dioxide Anion Gap BUN Creatinine Est Cr Clr Drug Dosing eGFR BUN/Creatinine Ratio Glucose POC Glucose 116 H Calcium PG Care Time/CCT Total # of Minutes Spent Total Time Spent with Patient: Total time spent is greater than 50% in coordination of care (as documented) at patient's floor/unit and/or counseling patient: Coding Level of Care Code 01013 SUB INP/OBS CARE 3/50MIN Diagnoses Hyponatremia E87.1 Hypothyroidism E03.9 Generalized muscle weakness M62.81
--- NOTE | 2024-09-18 13:48 | Hospitalist Progress Note ---
Date of Service September 18, 2024 Assessment & Plan (1) Generalized muscle weakness: Plan: Weakness due to anaplasmosis -CT head negative -Tick borne illness initially negative, blood smear was negative, however, subsequent review showed that she indeed has Anaplasmosis -Continue PO Doxycycline for at least 1 week to 10 days PT/OT recommending return home with home health PT. (2) Hyponatremia: Plan: Now resolved Appreciate nephrology (3) Hypothyroidism: Plan: -levothyxroxine (4) Hyperlipidemia: Plan: -pravastatin (5) Mosqueda's esophagus: Plan: -Protonix BID (6) Anxiety: Plan: -lorazepam (7) Depression: Plan: -duloxetine Plan Heparin SQ for DVT px Admission and Anticipated Discharge Date Admission Date: September 16, 2024 hopefully discharge home tomorrow Subjective Patient seen and examined, states she feels a lot better, her strength has returned and she wishes to go home probably tomorrow Review of Systems Review of Systems: All systems reviewed are negative, apart from the ones contained in the history. Physical Exam Physical Exam: General: A&Ox3. NAD. Cooperative. HEENT: Periorbital and nasal bridge ecchymoses present. No active bleeding Pulm: CTAB A&P. -wheezes, -rales, -rhonchi. Symmetrical chest rise. No increase in work of breathing. No respiratory distress. Cardiac: RRR, -mrg. Radial pulses intact and symmetrical. Abdominal: Nontender, nondistended, soft. BS present. Extremities: Moves all extremities equally Results & Data Results & Data Vital Signs (Past 12 Hours) Vital Signs Temp Pulse Pulse Resp BP Pulse Ox O2 Del Method 09/18/24 11:47 98.4 F 65 18 101/61 90 Room Air 09/18/24 08:09 97.7 F 75 18 164/100 H 94 Room Air 09/18/24 08:00 83 09/18/24 03:37 98.1 F 63 16 105/61 91 Room Air PG Care Time/CCT Total # of Minutes Spent Total Time Spent with Patient: Total time spent is greater than 50% in coordination of care (as documented) at patient's floor/unit and/or counseling patient: Coding Level of Care Code 77013 SUB INP/OBS CARE 2/35MIN Diagnoses Generalized muscle weakness M62.81 Hyponatremia E87.1 Hypothyroidism E03.9 Pure hypercholesterolemia E78.00 Hyperlipidemia type: pure hypercholesterolemia Mosqueda's esophagus K22.70 Anxiety F41.9 Depression F32.A Time Spent (min) 35 (4) Hyperlipidemia Hyperlipidemia type: pure hypercholesterolemia Qualified Code(s): E78.00 - Pure hypercholesterolemia, unspecified
[2024-09-19 07:24] LABS: Hematocrit (blood only) 29.3 % (37.0-47.0); Hemoglobin 10.4 g/dl (12.0-16.0); Mean Corpuscular Hemoglobin 31.6 pg (25.0-34.0); Mean Corpuscular Volume 89.1 fL (80.0-100.0); Platelet Count 126 K/uL (130-400); RDW Standard Deviation 42.6 fL (36.4-46.3); Red Blood Count 3.29 M/uL (4.20-5.40); White Blood Count 4.93 K/ul (4.8-10.8)
[2024-09-19 07:34] VITALS: RESP 18; TEMP 97.9; O2SAT 94
[2024-09-19 07:41] LABS: Anion Gap 6.0 (3-11); Blood Urea Nitrogen 12.0 mg/dl (6-23); Calcium 7.7 mg/dl (8.6-10.3); Carbon Dioxide 24.0 mmol/L (21-32); Chloride 109.0 mmol/L (98-107); Creatinine Clr Calc Pharmacy 58.3 ml/min; Glucose 92.0 mg/dl (70-99(Fasting)); Potassium 3.6 mmol/L (3.5-5.1); Sodium 139.0 mmol/L (136-145)
[2024-09-19 08:24] LABS: Immature Granulocytes # (auto) 0.04 K/uL (0.01-0.20); Immature Granulocytes % (auto) 0.8 %
--- NOTE | 2024-09-19 08:45 | Discharge Summary ---
Date of Service September 19, 2024 Admission HPI Per Admitting Provider Pt is a 74 y/o female with pmh of HLD, Mosqueda's esophagus, hypothyroidism, depression, anxiety, presents with progressively worsening generalized weakness with resulting fall yesterday in which she struck her face. Pt states her symptoms have been over the past 1 1/2 weeks. She her stated that she has not been steady on her feet for months. [place], but denies any recent tick bites. In the ER her CT head and facial showed mild nasal fracture otherwise no acute pathology. Her labs showed a Na+127, with serum osm 268,urine osm 393, urine Na+53. Her UA was negative for UTI. Tick borne illness pannel was sent.Pt was started on IVF, and will be admitted for further work up and treamtent of her generalized weakness and hyponatremia. Admission Exam (Per Admitting) Constitutional The patient is awake, alert and oriented 3, well developed and well nourished, normocephalic and atraumatic, lying in bed and in no acute distress. HEENT--PERRL, EOMI, mucous membranes and oropharynx mildly dry Neck--supple. No JVD. No bruits. Thyroid normal, trachea midline, no adenopathy. Heart--normal S1 and S2. No murmurs, rubs or gallops. Lungs--clear bilaterally, no respiratory distress, no accessory muscle use. Abdomen--normal bowel sounds and soft. Extremities--no cyanosis or clubbing. No edema. Dermatologic--normal skin turgor, normal color, no abnormal lymph nodes, no rash. Neurologic--cranial nerves II through XII grossly intact. Rheumatologic--normal range of motion. Psychiatric--normal affect. 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 (2) Hyponatremia: Now resolved Appreciate nephrology (3) Hypothyroidism: -levothyxroxine (4) Hyperlipidemia: -pravastatin (5) Mosqueda's esophagus: -Protonix BID (6) Anxiety: -lorazepam (7) Depression: -duloxetine Plan Heparin SQ for DVT px Coding Level of Care Code 63401 INP/OBS DISCH >30 MIN Diagnoses Generalized muscle weakness M62.81 Hyponatremia E87.1 Hypothyroidism E03.9 Pure hypercholesterolemia E78.00 Hyperlipidemia type: pure hypercholesterolemia Mosqueda's esophagus K22.70 Anxiety F41.9 Depression F32.A Time Spent (min) 35
--- NOTE | 2024-09-19 09:15 | Nephrology Progress Note ---
Date of Service September 19, 2024 Assessment & Plan (1) Hyponatremia: Plan: Chronic, mild to moderate. Sodium improved. Continue 1.5 L daily fluid limit. Advised to avoid alcohol. Remains euvolemic. Outpatient follow up with labs in ~1week and follow up in the nephrology clinic in ~2 weeks is reasonable at this time. (2) Hypothyroidism: Plan: TSH acceptable. Remains on levothyroxine 75 mcg daily. (3) Generalized muscle weakness: Plan: Remains on doxycycline. Admission and Anticipated Discharge Date Admission Date: September 16, 2024 Subjective No acute events overnight. No complaints this AM. Review of Systems Review of Systems: All systems reviewed & are unremarkable except as noted in HPI & below Physical Exam Constitutional: well developed; no acute distress Eyes: no scleral abnormality and no corneal abnormality ENMT: Mouth: no oral mucosal abnormality and oral mucous membranes not dry Neck: normal visual inspection and trachea midline Respiratory: normal respiratory effort Auscultation: lungs clear to auscultation bilaterally Cardiovascular: Rate/Rhythm: regular rate Heart Sounds: normal S1 and normal S2 Extremities: no edema Musculoskeletal: Extremities: no cyanosis and no clubbing Skin: normal turgor; no lesions Neurologic: Motor/Sensory: no tremor and no asterixis Psychiatric: Orientation: alert and oriented x 3 Results & Data Vital Signs (Past 12 Hours) Vital Signs Temp Pulse Pulse Resp BP Pulse Ox O2 Del Method 09/19/24 07:33 36.6 C 64 18 114/65 94 Room Air 09/19/24 07:24 65 09/19/24 03:18 36.9 C 68 20 101/61 90 Room Air 09/18/24 23:00 36.7 C 66 20 112/58 L 93 Room Air 09/18/24 21:50 63 Laboratory Results Laboratory Results - last 24 hr 09/18/24 09/19/24 20:40 05:33 WBC 4.93 RBC 3.29 L Hgb 10.4 L Hct 29.3 L MCV 89.1 MCH 31.6 MCHC 35.5 RDW Std Deviation 42.6 RDW Coeff of Geri 13.0 Plt Count 126 L D MPV 11.2 Immature Gran % (Auto) 0.8 Neut % (Auto) 50.7 Lymph % (Auto) 33.3 Wolfe % (Auto) 14.2 Eos % (Auto) 0.6 Baso % (Auto) 0.4 Neut # (Auto) 2.50 Lymph # (Auto) 1.64 Wolfe # (Auto) 0.70 H Eos # (Auto) 0.03 Baso # (Auto) 0.02 Immature Gran # (Auto) 0.04 Echinocytes 1+ Sodium 139 Potassium 3.6 Chloride 109 H Carbon Dioxide 24 Anion Gap 6 BUN 12 Creatinine 0.72 Est Cr Clr Drug Dosing 58.3 eGFR 87.14 BUN/Creatinine Ratio 16.7 Glucose 92 POC Glucose 114 H Calcium 7.7 L PG Care Time/CCT Total # of Minutes Spent Total Time Spent with Patient: Total time spent is greater than 50% in coordination of care (as documented) at patient's floor/unit and/or counseling patient: Coding Level of Care Code 89701 SUB INP/OBS CARE 3/50MIN Diagnoses Hyponatremia E87.1 Hypothyroidism E03.9 Generalized muscle weakness M62.81
[2024-09-19 11:54] VITALS: BP 106/63; PULSE 65
[2024-09-25 22:18] LABS: Q Fever IgG, Phase I NEGATIVE
== END 2024-09-19 12:50 | disposition home or self-care (01) | DRG 868 ==
LOC: ED 13:23 → 2N 16:32 → SUATTDRO 16:32 → 2N 18:10